=== PATIENT | male | born 1945 | race Caucasian/White ===

== ENCOUNTER 2016-07-24 01:15 | Emergency (ER) | payer MEDICARE ==
[2016-07-24] MEDS ORDERED: Nitrostat 0.4 MG (ED) SL ONE ×2 (01:24→01:38)
[2016-07-24] MEDS ORDERED: Phenergan 25 MG INJ IV ONE (01:24)
[2016-07-24] MEDS ORDERED: BABY ASPIRIN 81 MG CHEW PO ONE (01:24)
[2016-07-24] MEDS ORDERED: Sodium Chloride 0.9% 1000 ML 1,000 ML IV SCH (01:30)
--- NOTE | 2016-07-24 01:31 | ERPHSYRPT ---
- History of Present Illness Time Seen by Provider: 07/24/16 01:20 Historian: patient Exam Limitations: no limitations Patient Subjective Stated Complaint: PT C/O PIAN IN LT CHEST AND RADIATING TO LT SHOULDER AND ARM Triage Nursing Assessment: PT ALERT AND ORIENTED, ANSWERS QEUSTIOSN APPROP. PT AMULATORY WITH STEADY GAIT NOTED. SKIN PINK WAMR AND DRY. PACER TO LT CHEST. RHYTHM PACED ON MONITOR. RESPIRATIONS NONLABORED WITH LUNGS CTA Physician History: ABOUT 1 HOUR AGO AT HOME PT WAS SITTING IN A CHAIR WATCHING TV WHEN HE DEVELOPED SHARP CONSTANT LEFT ANTERIOR CHEST PAIN RADIATING TO THE LEFT SIDE OF THE NECK, LEFT SHOULDER, LEFT ARM AND BACK; PT ALSO C/O LOWER ABDOMINAL PAIN AND NAUSEA. Aspirin Treatment Today: 81 mg x 4, provided by ED Allergies/Adverse Reactions: iodine Allergy (Mild, Verified 07/24/16 02:13) Home Medications: Acetaminophen 325 mg [Tylenol 325 mg] 650 mg PO Q4-6HPRN PRN 08/27/15 [ History] Famotidine 20 mg [Pepcid 20 MG] 20 mg PO BID 08/27/15 [History] Gabapentin [Neurontin] 800 mg PO BID 08/27/15 [History] Levothyroxine Sodium 25 Mcg [Synthroid 25 Mcg] 25 mcg PO DAILY 08/27/15 [ History] Loratadine 10 mg [Claritin 10 mg] 10 mg PO DAILY 08/27/15 [History] Magnesium Oxide 400 mg [Mag-Ox 400] 400 mg PO DAILY 08/27/15 [History] Morphine Sulfate Ir 15 mg [Msir 15 mg] 30 mg PO Q4-6HPRN PRN 08/27/15 [ History] Nitroglycerin 0.4 mg Tablet [Nitrostat 0.4 MG Tablet] 0.4 mg SL UD PRN [History] [place]-3 Fatty Acids/Fish Oil [Fish Oil 1,000 mg Capsule] 1,000 mg PO BID [History] Prasugrel HCl [Effient] 10 mg PO DAILY 08/27/15 [History] Pyridoxine HCl 100 mg [Vitamin B-6 (Pyridoxine) 100 MG] 100 mg PO BID [History] Ropinirole HCl 0.5 mg [Requip 0.5 MG] 0.5 mg PO HS 08/27/15 [History] Rosuvastatin Calcium [Crestor] 20 mg PO HS 08/27/15 [History] Sertraline HCl 50 mg [Zoloft 50 mg Tablet] 25 mg PO BID 08/27/15 [History] Hx Tetanus, Diphtheria Vaccination/Date Given: Yes Hx Influenza Vaccination/Date Given: Yes Hx Pneumococcal Vaccination/Date Given: Yes Immunizations Up to Date: Yes - Review of Systems Respiratory: No Dyspnea Cardiac: Chest Pain Abdominal/Gastrointestinal: Nausea Musculoskeletal: Back Pain, Neck Pain, Joint Pain (LEFT SHOULDER AND ARM PAIN) Neurological: No Headache Endocrine: No Excessive Sweating All Other Systems: Reviewed and Negative - Past Medical History Pertinent Past Medical History: Yes Neurological History: No Pertinent History ENT History: No Pertinent History Cardiac History: Arrhythmia, Congenital Heart Disease, Coronary Artery Disease, High Cholesterol, Hypertension, Myocardial Infarction (PR) Respiratory History: No Pertinent History Endocrine Medical History: Diabetes Type II Musculoskeletal History: Fibromyalgia GI Medical History: GERD History: No Pertinent History Psycho-Social History: Depression Male Reproductive Disorders: No Pertinent History - Past Surgical History Past Surgical History: Yes Neuro Surgical History: No Pertinent History Cardiac: CABG, Pacemaker Respiratory: No Pertinent History Gastrointestinal: Cholecystectomy Genitourinary: No Pertinent History Musculoskeletal: No Pertinent History Male Surgical History: No Pertinent History - Social History Smoking Status: Never smoker Exposure to second hand smoke: Yes Drug Use: none Patient Lives Alone: No - Nursing Vital Signs Pain Intensity: 9 - Physical Exam General Appearance: mild distress, alert Eye Exam: PERRL/EOMI Ears, Nose, Throat Exam: pharynx normal, moist mucous membranes Neck Exam: normal inspection Respiratory Exam: lungs clear Cardiovascular Exam: normal heart sounds Gastrointestinal/Abdomen Exam: soft, normal bowel sounds Back Exam: normal range of motion Extremity Exam: No pedal edema Neurologic Exam: alert, cooperative Skin Exam: warm, dry - Course Nursing assessment & vital signs reviewed: Yes EKG Interpreted by Me: RATE (65), NORMAL AXIS, Non-specific ST Changes, Other ( INTERMITTENT PACEMAKER RHYTHM) - Radiology Exams Chest X-ray Interpretation: Interpreted by me, No Pneumonia Ordered Tests: Active Orders 24 hr Category Date Time Status Equalizer Operator STAT Care 07/24/16 01:24 Active Clean Catch Urine Specimen STAT Care 07/24/16 01:24 Active EKG-ER Only STAT Care 07/24/16 01:24 Active IV Insertion STAT Care 07/24/16 01:24 Active Oxygen-ED Only NASAL CANNULA 2 lpm Care 07/24/16 01:24 Active Pulse Oximetry (ED) STAT Care 07/24/16 01:24 Active CHEST 1 VIEW (PORTABLE) Stat Exams 07/24/16 01:25 Taken AMYLASE Stat Lab 07/24/16 01:30 Completed CBC W DIFF Stat Lab 07/24/16 01:30 Completed CMP Stat Lab 07/24/16 01:30 Completed LIPASE Stat Lab 07/24/16 01:30 Completed MAGNESIUM Stat Lab 07/24/16 01:30 Completed PROTIME WITH INR Stat Lab 07/24/16 01:30 Completed PTT Stat Lab 07/24/16 01:30 Completed TROPONIN Q3H Lab 07/24/16 01:30 Completed TROPONIN Q3H Lab 07/24/16 04:30 Ordered TROPONIN Q3H Lab 07/24/16 07:30 Ordered TROPONIN Q3H Lab 07/24/16 10:30 Ordered TROPONIN Q3H Lab 07/24/16 13:30 Ordered UA Stat Lab 07/24/16 01:25 Ordered Medication Summary Generic Name Dose Route Start Last Admin Trade Name Freq PRN Reason Stop Dose Admin Sodium Chloride 1,000 mls @ 100 mls/hr 07/24/16 01:30 07/24/16 01:40 Sodium Chloride 0.9% 1000 Ml IV 08/23/16 01:29 100 mls/hr .Q10H CARLOS A Administration Discontinued Medications Generic Name Dose Route Start Last Admin Trade Name Freq PRN Reason Stop Dose Admin Aspirin 324 mg 07/24/16 01:24 07/24/16 01:40 Baby Aspirin 81 Mg Chew PO 07/24/16 01:25 324 mg STAT ONE Administration Aspirin Confirm 07/24/16 01:38 Baby Aspirin 81 Mg Chew Administered 07/24/16 01:39 Dose 324 mg .ROUTE .STK-MED ONE Hydromorphone HCl 1 mg 07/24/16 01:36 07/24/16 01:42 Hydromorphone 1 Mg/Ml Ampule IV 07/24/16 01:37 1 mg STAT ONE Administration Hydromorphone HCl Confirm 07/24/16 01:42 Hydromorphone 1 Mg/Ml Ampule Administered 07/24/16 01:43 Dose 1 mg .ROUTE .STK-MED ONE Magnesium Sulfate/Dextrose 100 mls @ 200 mls/hr 07/24/16 02:00 07/24/16 02:05 Magnesium 1 Gm / 100 Ml D5w IV 07/24/16 02:29 200 mls/hr STAT ONE Administration Magnesium Sulfate/Dextrose Confirm 07/24/16 02:04 Magnesium 1 Gm / 100 Ml D5w Administered 07/24/16 02:05 Dose 100 mls @ ud IV .STK-MED ONE Nitroglycerin 0.4 mg 07/24/16 01:24 07/24/16 01:40 Nitrostat 0.4 Mg (Ed) SL 07/24/16 01:25 0.4 mg STAT ONE Administration Nitroglycerin Confirm 07/24/16 01:38 Nitrostat 0.4 Mg (Ed) Administered 07/24/16 01:39 Dose 0.4 mg SL .STK-MED ONE Promethazine HCl 12.5 mg 07/24/16 01:24 07/24/16 01:40 Phenergan 25 Mg Inj IV 07/24/16 01:25 12.5 mg STAT ONE Administration Promethazine HCl Confirm 07/24/16 01:38 Phenergan 25 Mg Inj Administered 07/24/16 01:39 Dose 25 mg .ROUTE .STK-MED ONE Lab/Rad Data: Laboratory Result Diagrams 07/24/16 01:30 07/24/16 01:30 Laboratory Results 07/24/16 07/24/16 07/24/16 Range/Units 01:30 01:30 01:30 WBC (4.0-10.5) K/mm3 RBC (4.1-5.6) M/mm3 Hgb (12.5-18.0) gm/dl Hct (42-50) % MCV (78-100) fl MCH (26-32) pg MCHC (32-36) g/dl RDW (11.5-14.0) % Plt Count (150-450) K/mm3 MPV (6-9.5) fl Gran % (36.0-66.0) % Lymphocytes % (24.0-44.0) % Monocytes % (0.0-12.0) % Eosinophils % (0.00-5.0) % Basophils % (0.0-0.4) % Basophils # (0-0.4) INR 1.04 (0.8-3.0) PTT 33.9 (24.1-36.1) SECONDS Sodium 139 (136-145) mEq/L Potassium 4.0 (3.5-5.1) mEq/L Chloride 100 (98-107) mEq/L Carbon Dioxide 31.2 (21-32) mEq/L Anion Gap 11.4 (5-15) MEQ/L BUN 10 (9-20) mg/dL Creatinine 1.33 H (0.55-1.30) mg/dl Estimated GFR 57 ML/MIN Glucose 100 (70-110) MG/DL Calcium 9.2 (8.5-10.1) mg/dL Magnesium 1.6 L (1.8-2.4) mg/dL Total Bilirubin 0.4 (0.2-1.0) mg/dL AST 36 (15-37) U/L ALT 18 (12-78) U/L Alkaline Phosphatase 79 (46-116) U/L Troponin I < 0.017 (0.000-0.056) ng/ml Serum Total Protein 7.2 (6.4-8.2) gm/dL Albumin 3.5 (3.4-5.0) g/dL Amylase 74 (25-115) U/L Lipase 159 (73-393) U/L 07/24/16 Range/Units 01:30 WBC 3.9 L (4.0-10.5) K/mm3 RBC 4.08 L (4.1-5.6) M/mm3 Hgb 12.5 (12.5-18.0) gm/dl Hct 37.0 L (42-50) % MCV 90.7 (78-100) fl MCH 30.6 (26-32) pg MCHC 33.8 (32-36) g/dl RDW 12.6 (11.5-14.0) % Plt Count 85 L (150-450) K/mm3 MPV 9.2 (6-9.5) fl Gran % 51.6 (36.0-66.0) % Lymphocytes % 26.7 (24.0-44.0) % Monocytes % 13.5 H (0.0-12.0) % Eosinophils % 7.4 H (0.00-5.0) % Basophils % 0.8 (0.0-0.4) % Basophils # 0.03 (0-0.4) INR (0.8-3.0) PTT (24.1-36.1) SECONDS Sodium (136-145) mEq/L Potassium (3.5-5.1) mEq/L Chloride (98-107) mEq/L Carbon Dioxide (21-32) mEq/L Anion Gap (5-15) MEQ/L BUN (9-20) mg/dL Creatinine (0.55-1.30) mg/dl Estimated GFR ML/MIN Glucose (70-110) MG/DL Calcium (8.5-10.1) mg/dL Magnesium (1.8-2.4) mg/dL Total Bilirubin (0.2-1.0) mg/dL AST (15-37) U/L ALT (12-78) U/L Alkaline Phosphatase (46-116) U/L Troponin I (0.000-0.056) ng/ml Serum Total Protein (6.4-8.2) gm/dL Albumin (3.4-5.0) g/dL Amylase (25-115) U/L Lipase (73-393) U/L - Progress Progress Note: 07/24/16 02:36 PT REFUSES ADMISSION. PT IS PAIN FREE AND WANTS TO GO HOME. - Departure Time of Disposition: 02:38 Departure Disposition: Home Clinical Impression: CHEST PAIN, FIBROMYALGIA, DM, HTN, GERD, DEPRESSION Condition: Fair Critical Care Time: No Instructions: Chest Pain Additional Instructions: FOLLOW UP WITH PRIVATE DOCTOR LATER TODAY.
[2016-07-24 01:33] LABS: BASOPHIL % 0.8 % (0.0-0.4); Eosinophil % 7.4 % (0.00-5.0); Granulocytes % 51.6 % (36.0-66.0); Lymphocytes % 26.7 % (24.0-44.0); Mean Cell Volume 90.7 fl (78-100); Mean Corpuscular Hemoglobin 30.6 pg (26-32); Mean Platelet Volume 9.2 fl (6-9.5); Monocytes % 13.5 % (0.0-12.0); Platelet Count 85 K/mm3 (150-450); Red Blood Count 4.08 M/mm3 (4.1-5.6); Red Cell Distribution Width 12.6 % (11.5-14.0); White Blood Count 3.9 K/mm3 (4.0-10.5)
[2016-07-24] MEDS ORDERED: Hydromorphone 1 mg/ml Ampule IV ONE (01:36)
[2016-07-24] MEDS ORDERED: Phenergan 25 MG INJ ONE (01:38)
[2016-07-24] MEDS ORDERED: BABY ASPIRIN 81 MG CHEW ONE (01:38)
[2016-07-24] MEDS ORDERED: Sodium Chloride 0.9% 1000 ML 1,000 ML ONE (01:38)
[2016-07-24] MEDS ORDERED: Hydromorphone 1 mg/ml Ampule ONE (01:42)
[2016-07-24 01:46] LABS: INR 1.04 (0.8-3.0); PROTIME 11.6 SECONDS (8.83-12.87)
[2016-07-24 01:49] LABS: PTT 33.9 SECONDS (24.1-36.1)
[2016-07-24 01:58] LABS: ALBUMIN 3.5 g/dL (3.4-5.0); ANION GAP 11.4 MEQ/L (5-15); BILIRUBIN,TOTAL 0.4 mg/dL (0.2-1.0); Carbon Dioxide 31.2 mEq/L (21-32); MAGNESIUM 1.6 mg/dL (1.8-2.4); Total Protein 7.2 gm/dL (6.4-8.2)
[2016-07-24] MEDS ORDERED: Magnesium 1 Gm / 100 Ml D5W*** 100 ML IV ONE ×2 (02:00→02:04)
[2016-07-24] MEDS ORDERED: TORAdol 30 mg Injection IV ONE (02:41)
[2016-07-24] MEDS ORDERED: TORAdol 30 mg Injection ONE (03:09)
[2016-07-24 03:55] LABS: Collection Type VOID; Ph 5.5 (5-6)
[2016-07-24 03:56] LABS: COMPLETE URINE MICROSCOPIC? NO
[2016-07-24 04:38] VITALS: PULSE 60
[2016-07-24 05:32] VITALS: BP 131/75; O2SAT 96
--- NOTE | 2016-07-24 09:35 | XRAY ---
Indication: Chest pain and short of breath. Comparison: January 28, 2013. Portable chest remains clear. Heart is not enlarged and again demonstrates previous CABG surgery with a left-sided dual-lead pacemaker. Stable right perihilar calcified nodes. Bony thorax intact again with mild osteopenia and degenerative changes. Impression: Stable nonacute chest with chronic features.
== END 2016-07-24 05:31 | disposition home or self-care (01) ==
LOC: ED 01:15
DX: R07.89 Other chest pain (principal); M79.7 Fibromyalgia; E11.9 Type 2 diabetes mellitus without complications; I10 Essential (primary) hypertension; K21.9 Gastro-esophageal reflux disease without esophagitis; F32.9 Major depressive disorder, single episode, unspecified; M54.2 Cervicalgia; M25.512 Pain in left shoulder; M79.602 Pain in left arm; M54.9 Dorsalgia, unspecified; R10.30 Lower abdominal pain, unspecified; R11.0 Nausea
CPT/HCPCS: 36000; 36415; 71010; 80053; 81002; 82150; 83690; 83735; 84484; 85025; 85610; 85730; 93005; 93041; 96360; 96361; 96365; 96374; 96375; 99284; J1170; J1885; J2550; J3475; A9270-GY

== ENCOUNTER 2017-05-26 11:41 | Emergency (ER) | payer MEDICARE ==
[2017-05-26] MEDS ORDERED: ATARAX 25 MG PO ONE (12:13)
[2017-05-26] MEDS ORDERED: ATARAX 25 MG ONE (12:23)
[2017-05-26 12:29] LABS: VBG BASE EXCESS 6.4 (-2.0-2.0); VBG CARBOXYHEMOGLOBIN 3.2 % T HGB (0.0-6.9); VBG HCO3- 32.8 meq/L (22-28); VBG HEMOGLOBIN 14.6; VBG O2 SATURATION 68.6 (95-100); VBG POTASSIUM 4.1 (3.5-5.1); VBG pH 7.4 (7.32-7.42)
[2017-05-26 12:32] LABS: BASOPHIL % 0.4 % (0.0-0.4); Basophil (Absolute #) 0.02 (0-0.4); Eosinophil % 2.5 % (0.00-5.0); Eosinophil (Absolute #) 0.14 (0-0.5); Granulocyte Absolute (ANC) 3.09 (1.4-6.9); Granulocytes % 54.6 % (36.0-66.0); Hematocrit 40.5 % (42-50); Hemoglobin 13.4 gm/dl (12.5-18.0); Lymphocyte (Absolute #) 1.83 (1.0-4.6); Lymphocytes % 32.3 % (24.0-44.0); Mean Cell Volume 89.4 fl (78-100); Mean Corpuscular Hemoglobin 29.6 pg (26-32); Mean Corpuscular Hgb Concent. 33.1 g/dl (32-36); Mean Platelet Volume 9.4 fl (6-9.5); Monocyte (Absolute #) 0.58 (0.0-1.3); Monocytes % 10.2 % (0.0-12.0); Platelet Count 145 K/mm3 (150-450); Red Blood Count 4.53 M/mm3 (4.1-5.6); White Blood Count 5.7 K/mm3 (4.0-10.5)
--- NOTE | 2017-05-26 12:38 | ERPHSYRPT ---
- History of Present Illness Time Seen by Provider: 05/26/17 11:58 Source: patient, family () Patient Subjective Stated Complaint: PT REPORTS HIGH BLOOD PRESSURE BEGINNING NILAY 4 DAYS AGO-STATES THAT HE HURTS ALL OVER BUT THAT IS USUAL FOR HIM-DENIES RECENT ILLNESS-PT HAS CHANGED HOME MEDS TO TRY TO HELP Triage Nursing Assessment: PT PINK WARM ET [id number] TO ANSWER QUESTIONS- RESP EASY ET NONLABORED-MOVING ALL EXTREMITIES WITH EASE- Physician History: CC: high blood pressure Hx: 71 y/o patient of Dr Shore/Yenni with hx of HTN, CAD, SD, fibromyalgia. He has had some headache for 4 days, all day. Not too unusual but worse. He has no injury. Take plavix. No focal weakness, blurred vision, numbness. No fever or chills. He has been checking his blood pressure the past 2 days and it has been very high. He has been anxious and unable to sleep. He feels fidgety. No chest pain or abd pain. No vomiting. He takes morphine for chronic pain syndrome. Timing/Duration: day(s) (4) Severity: moderate Allergies/Adverse Reactions: iodine Allergy (Mild, Verified 05/26/17 11:56) Home Medications: Acetaminophen 325 mg [Tylenol 325 mg] 650 mg PO Q4-6HPRN PRN 08/27/15 [ History] Famotidine 20 mg [Pepcid 20 MG] 20 mg PO BID 08/27/15 [History] Gabapentin [Neurontin] 800 mg PO BID 08/27/15 [History] Levothyroxine Sodium 25 Mcg [Synthroid 25 Mcg] 25 mcg PO DAILY 08/27/15 [ History] Loratadine 10 mg [Claritin 10 mg] 10 mg PO DAILY 08/27/15 [History] Magnesium Oxide 400 mg [Mag-Ox 400] 400 mg PO DAILY 08/27/15 [History] Morphine Sulfate Ir 15 mg [Msir 15 mg] 30 mg PO Q4-6HPRN PRN 08/27/15 [ History] Nitroglycerin 0.4 mg Tablet [Nitrostat 0.4 MG Tablet] 0.4 mg SL UD PRN [History] [place]-3 Fatty Acids/Fish Oil [Fish Oil 1,000 mg Capsule] 1,000 mg PO BID [History] Pyridoxine HCl 100 mg [Vitamin B-6 (Pyridoxine) 100 MG] 100 mg PO BID [History] Ropinirole HCl 0.5 mg [Requip 0.5 MG] 0.5 mg PO HS 08/27/15 [History] Rosuvastatin Calcium [Crestor] 20 mg PO HS 08/27/15 [History] Sertraline HCl 50 mg [Zoloft 50 mg Tablet] 25 mg PO BID 08/27/15 [History] Clopidogrel Bisulfate [Clopidogrel] 75 mg PO DAILY 05/26/17 [History] Metoprolol Tartrate 50 mg [Lopressor 50 MG] 25 mg PO DAILY 05/26/17 [ History] Morphine Sulfate Ir 15 mg [Msir 15 mg] 15 mg PO 05/26/17 [History] Hx Tetanus, Diphtheria Vaccination/Date Given: Yes Hx Influenza Vaccination/Date Given: Yes Hx Pneumococcal Vaccination/Date Given: Yes Immunizations Up to Date: Yes - Review of Systems Constitutional: No Fever, No Chills Eyes: No Vision Changes Ears, Nose, & Throat: No Symptoms Respiratory: No Symptoms Cardiac: No Chest Pain Abdominal/Gastrointestinal: No Abdominal Pain, No Nausea, No Vomiting Musculoskeletal: No Neck Pain, No Fall, No Injury Skin: No Rash Neurological: Headache, No Focal Weakness, No Parasthesia All Other Systems: Reviewed and Negative - Past Medical History Pertinent Past Medical History: Yes Neurological History: No Pertinent History ENT History: No Pertinent History Cardiac History: Arrhythmia, Congenital Heart Disease, Coronary Artery Disease, High Cholesterol, Hypertension, Myocardial Infarction (SD) Respiratory History: No Pertinent History Endocrine Medical History: Diabetes Type II Musculoskeletal History: Fibromyalgia GI Medical History: GERD History: No Pertinent History Psycho-Social History: Depression Male Reproductive Disorders: No Pertinent History - Past Surgical History Past Surgical History: Yes Neuro Surgical History: No Pertinent History Cardiac: CABG, Pacemaker Respiratory: No Pertinent History Gastrointestinal: Cholecystectomy Genitourinary: No Pertinent History Musculoskeletal: No Pertinent History Male Surgical History: No Pertinent History - Social History Smoking Status: Never smoker Exposure to second hand smoke: Yes Drug Use: none Patient Lives Alone: No - Nursing Vital Signs Nursing Vital Signs: Initial Vital Signs Temperature 97.4 F 05/26/17 11:54 Pulse Rate 74 05/26/17 11:54 Respiratory Rate 20 05/26/17 11:54 Blood Pressure 163/107 05/26/17 11:54 O2 Sat by Pulse Oximetry 98 05/26/17 11:54 Pain Scale Pain Intensity 0 - Physical Exam General Appearance: alert, other (mildly anxious appearing man) Eye Exam: PERRL/EOMI Ears, Nose, Throat Exam: normal ENT inspection, moist mucous membranes Neck Exam: normal inspection, non-tender, supple Respiratory Exam: normal breath sounds Cardiovascular Exam: regular rate/rhythm Gastrointestinal/Abdomen Exam: soft, No tenderness, No distention Back Exam: normal inspection, normal range of motion Extremity Exam: normal inspection, normal range of motion Neurologic Exam: alert, oriented x 3, cooperative, poly packer and heat sealer II-XII nml as tested, sensation nml, No motor deficits Skin Exam: warm, dry, No rash SpO2 Interpretation: normal SpO2: 98 Oxygen Delivery: Room Air - Course Nursing assessment & vital signs reviewed: Yes EKG Interpreted by Me: RATE (63 atrial paced rhythm) - CT Exams head CT Interpretation: Negative, Tele-radiologist Report Ordered Tests: Active Orders 24 hr Category Date Time Status Multi Skilled Operator STAT Care 05/26/17 12:12 Active EKG-ER Only STAT Care 05/26/17 12:32 Active IV Insertion STAT Care 05/26/17 12:12 Active HEAD WITHOUT CONTRAST [CT] Stat Exams 05/26/17 12:12 Completed CBC W DIFF Stat Lab 05/26/17 12:26 Completed CMP Stat Lab 05/26/17 12:26 Completed Erythrocyte Sedimentation Rate Stat Lab 05/26/17 12:26 Completed VENOUS BLOOD GAS Urgent Lab 05/26/17 12:12 Completed Medication Summary Discontinued Medications Generic Name Dose Route Start Last Admin Trade Name Freq PRN Reason Stop Dose Admin Hydroxyzine HCl 25 mg 05/26/17 12:13 05/26/17 12:23 Atarax 25 Mg PO 05/26/17 12:14 25 mg STAT ONE Administration Hydroxyzine HCl Confirm 05/26/17 12:23 Atarax 25 Mg Administered 05/26/17 12:24 Dose 25 mg .ROUTE .STK-MED ONE Lab/Rad Data: Laboratory Result Diagrams 05/26/17 12:26 05/26/17 12:26 Laboratory Results 05/26/17 05/26/17 05/26/17 Range/Units 12:26 12:26 12:12 WBC 5.7 (4.0-10.5) K/mm3 RBC 4.53 (4.1-5.6) M/mm3 Hgb 13.4 (12.5-18.0) gm/dl Hct 40.5 L (42-50) % MCV 89.4 (78-100) fl MCH 29.6 (26-32) pg MCHC 33.1 (32-36) g/dl RDW 14.0 (11.5-14.0) % Plt Count 145 L (150-450) K/mm3 MPV 9.4 (6-9.5) fl Gran % 54.6 (36.0-66.0) % Lymphocytes % 32.3 (24.0-44.0) % Monocytes % 10.2 (0.0-12.0) % Eosinophils % 2.5 (0.00-5.0) % Basophils % 0.4 (0.0-0.4) % Basophils # 0.02 (0-0.4) ESR 28 H (0-15) mm/hr VBG pH 7.40 (7.32-7.42) VBG pCO2 at Pat Temp 53 (42-55) mm/Hg VBG pO2 at Pat Temp 32 (25-40) mm/Hg VBG HCO3 32.8 H* (22-28) meq/L VBG O2 Sat ([place]) 68.6 L (95-100) VBG Base Excess 6.4 H (-2.0-2.0) VBG Hemoglobin 14.6 VBG Carboxyhemoglobin 3.2 (0.0-6.9) % T HGB POC Potassium 4.1 (3.5-5.1) Sodium 138 (136-145) mEq/L Potassium 4.4 (3.5-5.1) mEq/L Chloride 102 (98-107) mEq/L Carbon Dioxide 28.0 (21-32) mEq/L Anion Gap 11.9 (5-15) MEQ/L BUN 11 (9-20) mg/dL Creatinine 1.01 (0.55-1.30) mg/dl Estimated GFR > 60 ML/MIN Glucose 99 (70-110) MG/DL Calcium 9.5 (8.5-10.1) mg/dL Total Bilirubin 0.50 (0.2-1.0) mg/dL AST 59 H (15-37) U/L ALT 24 (12-78) U/L Alkaline Phosphatase 94 (46-116) U/L Serum Total Protein 8.1 (6.4-8.2) gm/dL Albumin 3.6 (3.4-5.0) g/dL - Progress Progress Note: 05/26/17 13:24 L arm BP 183/104. R arm BP 199/108. LI and anxiety improved. Await labs. 05/26/17 14:33 BP still up. He is now on metoprolol 50mg tabs half tab BID at home. In the past he took 50mg BID without problem. Will give half now, and increase to 50mg BID in AM. He has morphine at home and is due for next dose now so will take it when he gets home so as to not oversedate. Advised he see Dr Shore this week for recheck. He is most concerned about the anxiety at night and insomina. [facility] Counseled pt/family regarding: lab results, diagnosis, need for follow-up, rad results - Departure Time of Disposition: 14:35 Departure Disposition: Home Clinical Impression: Headache, Hypertension Condition: Stable Critical Care Time: No Referrals: GAUDENCIO SHORE MD [Primary Care Provider] - Instructions: Headache, Adult (DC), High Blood Pressure (DC) Additional Instructions: No driving and stay with family. Return for problems or concerns. See Dr Shore this week for recheck. Takie your normal half lopressor tonite. Increase to whole 50mg lopressor twice a day tomorrow AM.
--- NOTE | 2017-05-26 12:49 | XRAY ---
Indication: Headache. Multiple contiguous axial images obtained through the head without contrast. Comparison: July 03, 2015. Stable age-appropriate global atrophy. No acute intracranial hemorrhage, abnormal extra-axial fluid collection, or mass effect. Fourth ventricle is midline without hydrocephalus. Kumar-white matter differentiation maintained. Bony calvarium intact. Visualized paranasal sinuses and mastoid air cells clear. Impression: Stable negative CT head without contrast exam. CTDI 67.41
[2017-05-26 12:55] VITALS: O2SAT 98
[2017-05-26 12:58] LABS: Erythrocyte Sedimentation Rate 28 mm/hr (0-15)
[2017-05-26 13:44] LABS: ALBUMIN 3.6 g/dL (3.4-5.0); ALKALINE PHOSPHATASE 94 U/L (46-116); ANION GAP 11.9 MEQ/L (5-15); BLOOD UREA NITROGEN 11 mg/dL (9-20); CHLORIDE 102 mEq/L (98-107); Calcium 9.5 mg/dL (8.5-10.1); Creatinine 1 1.01 mg/dl (0.55-1.30); EST GLOMERULAR FILTRATION RATE > 60 ML/MIN; Glucose 99 MG/DL (70-110); SGOT/AST 59 U/L (15-37); SGPT/ALT 24 U/L (12-78); SODIUM 138 mEq/L (136-145); Total Protein 8.1 gm/dL (6.4-8.2)
[2017-05-26 13:52] LABS: Potassium 4.4 mEq/L (3.5-5.1)
[2017-05-26] MEDS ORDERED: Lopressor 25MG Tab PO ONE (14:33)
[2017-05-26] MEDS ORDERED: Lopressor 25MG Tab ONE (14:36)
[2017-05-26 14:48] VITALS: BP 180/104; PULSE 68
== END 2017-05-26 15:03 | disposition home or self-care (01) ==
LOC: ED 11:41
DX: R51 Headache (principal); I10 Essential (primary) hypertension; I25.10 Atherosclerotic heart disease of native coronary artery without angina pectoris; I25.2 Old myocardial infarction; M79.7 Fibromyalgia; G89.4 Chronic pain syndrome; Z79.891 Long term (current) use of opiate analgesic; Z79.899 Other long term (current) drug therapy
CPT/HCPCS: 36000; 36415; 70450; 80053; 82805; 85025; 85652; 93005; 93041; 99284; A9270-GY

== ENCOUNTER 2019-04-13 01:32 | Inpatient (IN) | payer MEDICARE ==
[2019-04-13] MEDS ORDERED: Zofran 4 MG/2 ML VIAL IV ONE ×3 (01:48→13:03)
[2019-04-13] MEDS ORDERED: MORPHINE SULFATE 2 MG INJ IV ONE (01:48)
--- NOTE | 2019-04-13 01:51 | ERPHSYRPT ---
- History of Present Illness Time Seen by Provider: 04/13/19 01:40 Source: patient, EMS Exam Limitations: no limitations Patient Subjective Stated Complaint: pt states, "I've been vomiting and diarrhea since Thursday night, feeling warm but did not take temp. Now, is the only time I've felt cold". Triage Nursing Assessment: pt vomiting and diarrhea since 04/11/19, ashen in color, cool to touch. Pt's abd soft with active bs x4 quad, nontender. Pt c/o low back pain due to fall on 04/06/19. Physician History: nausea vomiting diarrhea and abdominal pain therefore lasted 3 days. Fell a week ago and has lower back. Feels chills and warm. Timing/Duration: day(s) (3) Severity: moderate Modifying Factors: Improves With: eating Associated Symptoms: nausea, vomiting, abdominal pain, chills, malaise Allergies/Adverse Reactions: iodine Allergy (Mild, Verified 05/26/17 11:56) Home Medications: Acetaminophen 325 mg [Tylenol 325 mg] 650 mg PO Q4-6HPRN PRN 08/27/15 [ History] Famotidine 20 mg [Pepcid 20 MG] 20 mg PO BID 08/27/15 [History] Gabapentin [Neurontin] 800 mg PO BID 08/27/15 [History] Levothyroxine Sodium 25 Mcg [Synthroid 25 Mcg] 25 mcg PO DAILY 08/27/15 [ History] Loratadine 10 mg [Claritin 10 mg] 10 mg PO DAILY 08/27/15 [History] Magnesium Oxide 400 mg [Mag-Ox 400] 400 mg PO DAILY 08/27/15 [History] Morphine Sulfate Ir 15 mg [Msir 15 mg] 30 mg PO Q4-6HPRN PRN 08/27/15 [ History] Nitroglycerin 0.4 mg Tablet [Nitrostat 0.4 MG Tablet] 0.4 mg SL UD PRN [History] [place]-3 Fatty Acids/Fish Oil [Fish Oil 1,000 mg Capsule] 1,000 mg PO BID [History] Pyridoxine HCl 100 mg [Vitamin B-6 (Pyridoxine) 100 MG] 100 mg PO BID [History] Ropinirole HCl 0.5 mg [Requip 0.5 MG] 0.5 mg PO HS 08/27/15 [History] Rosuvastatin Calcium [Crestor] 20 mg PO HS 08/27/15 [History] Sertraline HCl 50 mg [Zoloft 50 mg Tablet] 25 mg PO BID 08/27/15 [History] Clopidogrel Bisulfate [Clopidogrel] 75 mg PO DAILY 05/26/17 [History] Metoprolol Tartrate 50 mg [Lopressor 50 MG] 25 mg PO DAILY 05/26/17 [ History] Morphine Sulfate Ir 15 mg [Msir 15 mg] 15 mg PO 05/26/17 [History] Hx Tetanus, Diphtheria Vaccination/Date Given: Yes Hx Influenza Vaccination/Date Given: Yes Hx Pneumococcal Vaccination/Date Given: Yes Immunizations Up to Date: Yes - Review of Systems Constitutional: Chills, No Fever Eyes: No Symptoms Ears, Nose, & Throat: No Symptoms Respiratory: No Cough, No Dyspnea Cardiac: No Chest Pain, No Edema, No Syncope Abdominal/Gastrointestinal: Abdominal Pain, Nausea, Vomiting, Diarrhea Genitourinary Symptoms: No Dysuria Musculoskeletal: Back Pain, No Neck Pain Skin: No Rash Neurological: No Dizziness, No Focal Weakness, No Sensory Changes Psychological: No Symptoms Endocrine: No Symptoms All Other Systems: Reviewed and Negative - Past Medical History Pertinent Past Medical History: Yes Neurological History: No Pertinent History ENT History: No Pertinent History Cardiac History: Angina, High Cholesterol, Hypertension, Myocardial Infarction ( [place]) Respiratory History: No Pertinent History Endocrine Medical History: Hypothyroidism Musculoskeletal History: Arthritis, Fibromyalgia, Osteoarthritis GI Medical History: GERD History: No Pertinent History Psycho-Social History: Depression Male Reproductive Disorders: No Pertinent History - Past Surgical History Past Surgical History: Yes Neuro Surgical History: No Pertinent History Cardiac: CABG, Pacemaker Respiratory: No Pertinent History Gastrointestinal: Cholecystectomy Genitourinary: No Pertinent History Musculoskeletal: No Pertinent History Male Surgical History: No Pertinent History - Social History Smoking Status: Never smoker Exposure to second hand smoke: No Drug Use: none Patient Lives Alone: No - Nursing Vital Signs Nursing Vital Signs: Initial Vital Signs Temperature 98.5 F 04/13/19 01:38 Pulse Rate 60 04/13/19 01:38 Respiratory Rate 16 04/13/19 01:38 Blood Pressure 183/96 04/13/19 01:38 O2 Sat by Pulse Oximetry 99 04/13/19 01:38 Pain Scale Pain Intensity 6 - Physical Exam General Appearance: no apparent distress, alert Eye Exam: PERRL/EOMI, eyes nml inspection Ears, Nose, Throat Exam: normal ENT inspection, TMs normal, pharynx normal, moist mucous membranes Neck Exam: normal inspection, non-tender, supple, full range of motion Respiratory Exam: normal breath sounds, lungs clear, No respiratory distress Cardiovascular Exam: regular rate/rhythm, normal heart sounds, normal peripheral pulses Gastrointestinal/Abdomen Exam: soft, normal bowel sounds, tenderness, No distention, No mass, No guarding Back Exam: normal range of motion, other (kkyphoscoliosis), No CVA tenderness, No vertebral tenderness Extremity Exam: normal inspection, normal range of motion, pelvis stable Neurologic Exam: alert, oriented x 3, cooperative, normal mood/affect, nml cerebellar function, nml station & gait, sensation nml, No motor deficits Skin Exam: normal color, warm, dry, No rash Lymphatic Exam: No adenopathy SpO2: 99 Ordered Tests: Active Orders 24 hr Category Date Time Status IV Insertion STAT Care 04/13/19 01:48 Active ABDOMEN AND PELVIS W CONTRAST [CT] Stat Exams 04/13/19 01:49 Taken CBC W DIFF Stat Lab 04/13/19 02:02 Completed CMP Stat Lab 04/13/19 02:02 Completed LIPASE Stat Lab 04/13/19 02:02 Completed Lactic Acid Stat Lab 04/13/19 01:48 Completed MAGNESIUM Stat Lab 04/13/19 02:02 Completed Medication Summary Generic Name Dose Route Start Last Admin Trade Name Freq PRN Reason Stop Dose Admin Sodium Chloride 1,000 mls @ 200 mls/hr 04/13/19 02:00 04/13/19 04:59 Sodium Chloride 0.9% 1000 Ml IV 05/13/19 01:59 200 mls/hr .Q5H CARLOS A Administration Levofloxacin/Dextrose 500 mg in 100 mls @ 100 mls/hr 04/13/19 06:30 Levofloxacin 500mg/100ml D5w IV 04/13/19 07:29 ONCALLTOOR CARLOS A Metronidazole 500 mg in 100 mls @ 200 mls/hr 04/13/19 06:22 Flagyl 500 Mg Ivpb IV 04/13/19 06:51 STAT STA Discontinued Medications Generic Name Dose Route Start Last Admin Trade Name Zev PRN Reason Stop Dose Admin Al Hydrox/Mg Hydrox/Simethicone Confirm 04/13/19 04:50 Maalox Es 30 Ml Unit Dose Administered 04/13/19 04:51 Dose 30 ml .ROUTE .STK-MED ONE Hydromorphone HCl 1 mg 04/13/19 06:21 Hydromorphone 1 Mg/Ml Ampule IV 04/13/19 06:22 STAT ONE Lidocaine HCl Confirm 04/13/19 04:49 Xylocaine Hcl Viscous * Administered 04/13/19 04:50 Dose 15 ml .ROUTE .STK-MED ONE Magnesium Hydroxide 45 ml 04/13/19 04:47 04/13/19 04:50 Gi Cocktail 45 Ml (Maalox/Lidocaine) PO 04/13/19 04:48 45 ml STAT ONE Administration Morphine Sulfate 2 mg 04/13/19 01:48 04/13/19 01:54 Morphine Sulfate 2 Mg Inj IV 04/13/19 01:49 2 mg STAT ONE Administration Morphine Sulfate Confirm 04/13/19 01:53 Morphine Sulfate 2 Mg Inj Administered 04/13/19 01:54 Dose 2 mg .ROUTE .STK-MED ONE Morphine Sulfate 4 mg 04/13/19 03:40 04/13/19 03:44 Morphine Sulfate 4 Mg Inj IV 04/13/19 03:41 4 mg STAT ONE Administration Morphine Sulfate Confirm 04/13/19 03:41 Morphine Sulfate 4 Mg Inj Administered 04/13/19 03:42 Dose 4 mg .ROUTE .STK-MED ONE Ondansetron HCl 4 mg 04/13/19 01:48 04/13/19 01:54 Zofran 4 Mg/2 Ml Vial IV 04/13/19 01:49 4 mg STAT ONE Administration Ondansetron HCl Confirm 04/13/19 01:52 Zofran 4 Mg/2 Ml Vial Administered 04/13/19 01:53 Dose 4 mg .ROUTE .STK-MED ONE Lab/Rad Data: Laboratory Result Diagrams 04/13/19 02:02 04/13/19 02:02 Laboratory Results 04/13/19 04/13/19 04/13/19 Range/Units 02:02 02:02 02:02 WBC (4.0-10.5) K/mm3 RBC (4.1-5.6) M/mm3 Hgb (12.5-18.0) gm/dl Hct (42-50) % MCV (78-100) fl MCH (26-32) pg MCHC (32-36) g/dl RDW (11.5-14.0) % Plt Count (150-450) K/mm3 MPV (6-9.5) fl Gran % (36.0-66.0) % Eos # (Auto) (0-0.5) Absolute Lymphs (auto) (1.0-4.6) Absolute Monos (auto) (0.0-1.3) Lymphocytes % (24.0-44.0) % Monocytes % (0.0-12.0) % Eosinophils % (0.00-5.0) % Basophils % (0.0-0.4) % Absolute Granulocytes (1.4-6.9) Basophils # (0-0.4) Sodium 138 (137-145) mmol/L Potassium 3.6 (3.5-5.1) mmol/L Chloride 103 (98-107) mmol/L Carbon Dioxide 25 (22-30) mmol/L Anion Gap 13.1 (5-15) MEQ/L BUN 14 (9-20) mg/dL Creatinine 1.09 (0.66-1.25) mg/dL Estimated GFR > 60.0 ML/MIN Glucose 105 (74-106) mg/dL Lactic Acid (0.4-2.0) Calcium 9.6 (8.4-10.2) mg/dL Magnesium 1.5 L (1.6-2.3) mg/dL Total Bilirubin 0.60 (0.2-1.3) mg/dL AST 59 (17-59) U/L ALT 41 (0-50) U/L Alkaline Phosphatase 108 (38-126) U/L Serum Total Protein 7.5 (6.3-8.2) g/dL Albumin 4.0 (3.5-5.0) g/dL Lipase 156 (23-300) U/L Influenza Type A Ag NEGATIVE (NEGATIVE) Influenza Type B Ag NEGATIVE (NEGATIVE) RSV (PCR) NEGATIVE (Negative) 04/13/19 04/13/19 Range/Units 02:02 01:48 WBC 4.2 (4.0-10.5) K/mm3 RBC 4.51 (4.1-5.6) M/mm3 Hgb 13.6 (12.5-18.0) gm/dl Hct 40.0 L (42-50) % MCV 88.7 (78-100) fl MCH 30.2 (26-32) pg MCHC 34.0 (32-36) g/dl RDW 13.4 (11.5-14.0) % Plt Count 99 L (150-450) K/mm3 MPV 9.5 (6-9.5) fl Gran % 66.7 H (36.0-66.0) % Eos # (Auto) 0.09 (0-0.5) Absolute Lymphs (auto) 0.80 L (1.0-4.6) Absolute Monos (auto) 0.50 (0.0-1.3) Lymphocytes % 19.1 L (24.0-44.0) % Monocytes % 11.9 (0.0-12.0) % Eosinophils % 2.1 (0.00-5.0) % Basophils % 0.2 (0.0-0.4) % Absolute Granulocytes 2.79 (1.4-6.9) Basophils # 0.01 (0-0.4) Sodium (137-145) mmol/L Potassium (3.5-5.1) mmol/L Chloride (98-107) mmol/L Carbon Dioxide (22-30) mmol/L Anion Gap (5-15) MEQ/L BUN (9-20) mg/dL Creatinine (0.66-1.25) mg/dL Estimated GFR ML/MIN Glucose (74-106) mg/dL Lactic Acid 1.4 (0.4-2.0) Calcium (8.4-10.2) mg/dL Magnesium (1.6-2.3) mg/dL Total Bilirubin (0.2-1.3) mg/dL AST (17-59) U/L ALT (0-50) U/L Alkaline Phosphatase (38-126) U/L Serum Total Protein (6.3-8.2) g/dL Albumin (3.5-5.0) g/dL Lipase (23-300) U/L Influenza Type A Ag (NEGATIVE) Influenza Type B Ag (NEGATIVE) RSV (PCR) (Negative) - Progress Progress: improved Discussed with : Jessie Will see patient in: hospital (observation) Counseled pt/family regarding: diagnosis, rad results - Departure Clinical Impression: Nausea vomiting and diarrhea L1 vertebral fracture Qualifiers: Encounter type: initial encounter Fracture type: closed Fracture morphology: other fracture Qualified Code(s): S32.018A - Other fracture of first lumbar vertebra, initial encounter for closed fracture Condition: Stable Critical Care Time: No Referrals: GAUDENCIO SHORE MD [Primary Care Provider] - Instructions: Diarrhea and Traveler's Diarrhea -- Adult
[2019-04-13] MEDS ORDERED: Zofran 4 MG/2 ML VIAL ONE ×2 (01:52→08:45)
[2019-04-13] MEDS ORDERED: MORPHINE SULFATE 2 MG INJ ONE (01:53)
[2019-04-13] MEDS: Sodium Chloride 0.9% 1000 ML 1,000 ML IV SCH ×3 (01:59→15:39)
[2019-04-13 02:06] LABS: Absolute Neutrophil Ct (ANC) 2.79 (1.4-6.9); BASOPHIL % 0.2 % (0.0-0.4); Basophil (Absolute #) 0.01 (0-0.4); Eosinophil % 2.1 % (0.00-5.0); Eosinophil (Absolute #) 0.09 (0-0.5); Hemoglobin 13.6 gm/dl (12.5-18.0); Lymphocytes % 19.1 % (24.0-44.0); Mean Cell Volume 88.7 fl (78-100); Mean Corpuscular Hemoglobin 30.2 pg (26-32); Mean Platelet Volume 9.5 fl (6-9.5); Monocytes % 11.9 % (0.0-12.0); Neutrophil % 66.7 % (36.0-66.0); Platelet Count 99 K/mm3 (150-450); Red Blood Count 4.51 M/mm3 (4.1-5.6); Red Cell Distribution Width 13.4 % (11.5-14.0); White Blood Count 4.2 K/mm3 (4.0-10.5)
[2019-04-13 02:17] LABS: ALKALINE PHOSPHATASE 108 U/L (38-126); ANION GAP 13.1 MEQ/L (5-15); BLOOD UREA NITROGEN 14 mg/dL (9-20); CHLORIDE 103 mmol/L (98-107); Calcium 9.6 mg/dL (8.4-10.2); Carbon Dioxide 25 mmol/L (22-30); Creatinine 1 1.09 mg/dL (0.66-1.25); Glucose 105 mg/dL (74-106); LIPASE 156 U/L (23-300); Potassium 3.6 mmol/L (3.5-5.1); SGOT/AST 59 U/L (17-59); SGPT/ALT 41 U/L (0-50); SODIUM 138 mmol/L (137-145); Total Protein 7.5 g/dL (6.3-8.2)
[2019-04-13 02:41] LABS: INFLUENZA A NEGATIVE (NEGATIVE); INFLUENZA B NEGATIVE (NEGATIVE); RESPIRATORY SYNCTIAL VIRUS NEGATIVE (Negative)
[2019-04-13] MEDS ORDERED: MORPHINE SULFATE 4 MG INJ IV ONE ×2 (03:40→10:39)
[2019-04-13] MEDS ORDERED: MORPHINE SULFATE 4 MG INJ ONE ×2 (03:41→10:43)
[2019-04-13] MEDS ORDERED: GI COCKTAIL 45 ML (Maalox/Lidocaine) PO ONE (04:47)
[2019-04-13] MEDS ORDERED: XYLOCAINE HCl Viscous ONE (04:49)
[2019-04-13] MEDS ORDERED: MAALOX ES 30 ML UNIT DOSE ONE (04:50)
[2019-04-13] MEDS ORDERED: Sodium Chloride 0.9% 1000 ML 1,000 ML ONE (04:58)
[2019-04-13] MEDS ORDERED: Hydromorphone 1 mg/ml Ampule IV ONE (06:21)
[2019-04-13] MEDS ORDERED: FLAGYL 500 MG IVPB 500 MG/100 ML BAG IV STA (06:22)
[2019-04-13] MEDS ORDERED: FLAGYL 500 MG IVPB 500 MG/100 ML BAG IV ONE (06:26)
[2019-04-13] MEDS ORDERED: Hydromorphone 1 mg/ml Ampule ONE (06:26)
[2019-04-13] MEDS ORDERED: Levofloxacin 500MG/100ML D5W 500 MG/100 ML BAG IV SCH (06:30)
--- NOTE | 2019-04-13 10:11 | XRAY ---
Indication: Abdomen pain. Multiple contiguous axial images obtained through the abdomen and pelvis using 80 cc of Isovue-370 contrast. Comparison: September 07, 2007. Lung bases again hyperinflated. Minimal bilateral dependent atelectasis. No infiltrate or effusion. Heart is not enlarged again demonstrating partially visualized CABG surgery and cardiac pacer leads. Noncontrasted stomach and bowel loops appear nonobstructed. Ascending colon and portion of the transverse colon now demonstrates mild circumferential wall thickening with fatty infiltration either incomplete distention versus inflammatory bowel disease. Both kidneys enhance and excrete with interval enlarging 2.6 cm right mid renal and 3 cm left lower renal exophytic cysts with new 7 mm left mid renal cyst. Also interval enlarging left urinary bladder diverticulum. Spleen remains enlarged measuring 15.5 cm. Interval cholecystectomy. No free fluid/air. Remaining liver, pancreas, spleen, adrenal glands, kidneys, ureters, and bladder appear unremarkable. Again scattered aortoiliac calcifications. No AAA or pathological retroperitoneal lymphadenopathy. Osseous structures demonstrates mild osteopenia and minimal/mild degenerative changes throughout the spine. New L1 superior endplate fracture with less than 25% height loss of uncertain chronicity. Impression: 1. Ascending and transverse colon bowel wall thickening and fatty infiltration either incomplete distention versus inflammatory bowel disease. 2. Enlarging bilateral renal cysts and urinary bladder diverticulum. 3. Again incidental splenomegaly. 4. L1 endplate fracture of uncertain chronicity. Comment: Preliminary interpretation was made by [facility]. No critical discrepancy.
[2019-04-13] MEDS ORDERED: BENTYL 20 MG ONE (10:43)
[2019-04-13] MEDS: BENTYL 20 MG PO SCH ×4 (10:45→21:53)
[2019-04-13] MEDS ORDERED: MORPHINE SULFATE 4 MG INJ IV SCH (13:06)
[2019-04-13 13:31] LABS: Hematocrit 39.5 % (42-50); Hemoglobin 13.6 gm/dl (12.5-18.0); Mean Cell Volume 88.8 fl (78-100); Mean Corpuscular Hemoglobin 30.6 pg (26-32); Mean Corpuscular Hgb Concent. 34.4 g/dl (32-36); Mean Platelet Volume 9.5 fl (6-9.5); Platelet Count 95 K/mm3 (150-450); Red Blood Count 4.45 M/mm3 (4.1-5.6); Red Cell Distribution Width 13.6 % (11.5-14.0); White Blood Count 3.6 K/mm3 (4.0-10.5)
[2019-04-13 13:32] LABS: ANION GAP 13.3 MEQ/L (5-15); BLOOD UREA NITROGEN 14 mg/dL (9-20); CHLORIDE 105 mmol/L (98-107); Calcium 9.8 mg/dL (8.4-10.2); Carbon Dioxide 25 mmol/L (22-30); Creatinine 1 1.07 mg/dL (0.66-1.25); Glucose 105 mg/dL (74-106); Potassium 3.6 mmol/L (3.5-5.1); SODIUM 140 mmol/L (137-145)
[2019-04-13] MEDS ORDERED: TYLENOL 325 MG PO PRN (14:50)
[2019-04-13] MEDS ORDERED: APRESOLINE 20 MG/ML INJ IV PRN (14:59)
[2019-04-13] MEDS ORDERED: Magnesium Sulfate 1 GM/2 ML VIAL IV ONE (15:00)
[2019-04-13] MEDS: DILAUDID 2 MG INJECTION IV PRN ×3 (15:37→23:55)
[2019-04-13] MEDS: Levofloxacin 500MG/100ML D5W 500 MG/100 ML BAG IV SCH (15:39)
[2019-04-13] MEDS: Magnesium 1 Gm / 100 Ml D5W*** 100 ML IV SCH ×2 (15:39→16:57)
[2019-04-13] MEDS: PROTONIX 40 MG IV IV SCH (15:39)
[2019-04-13] MEDS: Nitrostat 0.4 MG Tablet SL PRN ×3 (15:40→15:50)
[2019-04-13] MEDS ORDERED: Nitrostat 0.4 MG Tablet SL ONE (15:42)
[2019-04-13] MEDS: CLARITIN 10 MG PO SCH (15:44)
[2019-04-13] MEDS: SYNTHROID 25 MCG PO SCH (15:44)
[2019-04-13] MEDS: Zestril 20 MG PO SCH (15:44)
[2019-04-13] MEDS: Lopressor 25MG Tab PO SCH (15:44)
[2019-04-13] MEDS: ENOXAPARIN SODIUM SQ SCH (15:45)
[2019-04-13] MEDS: MAG-OX 400 PO SCH (16:00)
[2019-04-13] MEDS: PLAVIX 75 MG Tablet PO SCH (16:04)
[2019-04-13] MEDS: Phenergan 25 MG INJ IV PRN ×2 (16:24→21:53)
[2019-04-13 16:48] LABS: Basophil 1 % (0.0-1.0); Eosinophil 2 % (0.00-3.0); Lymphocytes 14 % (24-44); Monocyte 10 % (0.0-12.0); Neutrophils 73 % (36.-66.); Platelet Estimate DECREASED (NORMAL); Total Cells Counted 100
[2019-04-13] MEDS: Pepcid 20 MG PO SCH (21:52)
[2019-04-13] MEDS: Requip 0.5 MG PO SCH (21:52)
[2019-04-13] MEDS: FISH OIL 1,000 MG CAPSULE PO SCH (21:52)
[2019-04-13] MEDS: ZOCOR 20MG PO SCH (21:52)
[2019-04-13] MEDS: Neurontin 400 MG PO SCH (21:52)
[2019-04-13] MEDS: ZOLOFT 50 MG TABLET PO SCH (21:53)
[2019-04-13] MEDS: Vitamin B-6 (Pyridoxine) 100 MG PO SCH (21:53)
[2019-04-13] MEDS ORDERED: NON-FORMULARY ITEM (Rosuvastatin Calcium [Crestor] 20 MG) PO SCH (22:00)
[2019-04-14] MEDS: Sodium Chloride 0.9% 1000 ML 1,000 ML IV SCH ×3 (02:36→23:19)
[2019-04-14] MEDS: DILAUDID 2 MG INJECTION IV PRN ×5 (02:40→22:25)
[2019-04-14] MEDS ORDERED: Hydromorphone 1 mg/ml Ampule ONE (04:04)
[2019-04-14 05:19] LABS: BASOPHIL % 0.2 % (0.0-0.4); Basophil (Absolute #) 0.01 (0-0.4); Eosinophil (Absolute #) 0.05 (0-0.5); Hematocrit 39.7 % (42-50); Hemoglobin 13.4 gm/dl (12.5-18.0); Lymphocyte (Absolute #) 1.27 (1.0-4.6); Lymphocytes % 24.1 % (24.0-44.0); Mean Cell Volume 89.6 fl (78-100); Mean Corpuscular Hemoglobin 30.2 pg (26-32); Mean Corpuscular Hgb Concent. 33.8 g/dl (32-36); Mean Platelet Volume 9.3 fl (6-9.5); Monocyte (Absolute #) 0.63 (0.0-1.3); Neutrophil % 62.7 % (36.0-66.0); Platelet Count 108 K/mm3 (150-450); Red Blood Count 4.43 M/mm3 (4.1-5.6); Red Cell Distribution Width 13.7 % (11.5-14.0); White Blood Count 5.3 K/mm3 (4.0-10.5)
[2019-04-14 05:37] LABS: BLOOD UREA NITROGEN 13 mg/dL (9-20); CHLORIDE 107 mmol/L (98-107); Calcium 9.4 mg/dL (8.4-10.2); Carbon Dioxide 24 mmol/L (22-30); Creatinine 1 1.03 mg/dL (0.66-1.25); Glucose 95 mg/dL (74-106); Potassium 3.7 mmol/L (3.5-5.1); SODIUM 139 mmol/L (137-145)
[2019-04-14] MEDS: Neurontin 400 MG PO SCH ×2 (09:00→22:26)
[2019-04-14] MEDS: SYNTHROID 25 MCG PO SCH (09:00)
[2019-04-14] MEDS: CLARITIN 10 MG PO SCH (09:00)
[2019-04-14] MEDS: BENTYL 20 MG PO SCH ×4 (09:00→22:27)
[2019-04-14] MEDS: PLAVIX 75 MG Tablet PO SCH (09:00)
[2019-04-14] MEDS: MAG-OX 400 PO SCH (09:00)
[2019-04-14] MEDS: Lopressor 25MG Tab PO SCH (09:00)
[2019-04-14] MEDS: FISH OIL 1,000 MG CAPSULE PO SCH ×2 (09:00→22:26)
[2019-04-14] MEDS: Pepcid 20 MG PO SCH ×2 (09:01→22:28)
[2019-04-14] MEDS: Zestril 20 MG PO SCH (09:02)
[2019-04-14] MEDS: ENOXAPARIN SODIUM SQ SCH (09:02)
[2019-04-14] MEDS: Vitamin B-6 (Pyridoxine) 100 MG PO SCH ×2 (09:02→22:28)
[2019-04-14] MEDS: ZOLOFT 50 MG TABLET PO SCH ×2 (09:06→22:26)
--- NOTE | 2019-04-14 09:06 | HP ---
HISTORY OF PRESENT ILLNESS: This is a 73 year-old patient of Dr. Hendrickson who presented to the emergency department on 04/12/2019. He reports that he started having diarrhea on Thursday that got better and then got worse again. His was sick too and she is better but he is not. He had diarrhea this morning and still having vomiting. He reports his stools looked black but he thinks this is because he took some [id number] medication. He denies any blood in his stool. His pain is in his lower abdomen. He reports the pain medicine that he was given in the emergency room is not completely helping with his pain and he continues to have pain. He fell on 04/06/2019 and hurt his back. He was found to have an L1 compression fracture on CT scan of his abdomen and pelvis in the emergency room. In the emergency room he was also on the CT scan found to have ascending and transverse colon bowel wall thickening. REVIEW OF SYSTEMS: The patient is uncomfortable and further review is obtainable at this time. MEDICATIONS: Please see the home medication reconciliation form which I have reviewed. ALLERGIES: IODINE. PAST MEDICAL HISTORY: He reports hypertension, coronary artery disease with three open heart surgeries, fibromyalgia. PAST SURGICAL HISTORY: Cholecystectomy. Sam in his left leg after fracture. SOCIAL HISTORY: He is . FAMILY HISTORY: Noncontributory, PHYSICAL EXAMINATION: VITAL SIGNS: Temperature current 98.4F, heart rate 63, respiratory rate 18, blood pressure 196/98. Oxygen saturation 93 to 94% on room air. GENERAL: The patient is lying in bed in mild distress. CVS: His heart has a regular rate and rhythm. No murmurs, gallops or rubs are appreciated. CHEST: Clear to auscultation bilaterally. ABDOMEN: Tender in the right lower quadrant. No guarding. No rigidity. Hyperactive bowel sounds, slightly distended. EXTREMITIES: No clubbing, cyanosis or edema. SKIN: Warm, dry and intact. ASSESSMENT AND PLAN: 1) Abdominal pain. CT scan was concerning for inflammatory bowel disease with colon bowel wall thickening and fatty infiltration. Will continue with IV pain control, IV medication for nausea. I am monitoring his abdominal pain. Will check a GI panel and a stool for occult blood. 2) Hypertension. He has not received his oral antihypertensive yet this morning. I have asked the [employer] to have them give those to him STAT. I have also ordered hydralazine IV as needed for hypertension. 3) Coronary artery disease. Continue his home medications. 4) Fibromyalgia. His home medicine list was morphine but the frequency of how often this is given is not stated. Will check an INSPECT report. 5) Deep venous thrombosis prophylaxis: Will start Lovenox. 6) L1 compression fracture. Will continue with pain control and asked PT to see him tomorrow.
[2019-04-14] MEDS: PROTONIX 40 MG IV IV SCH (09:08)
[2019-04-14] MEDS: Levofloxacin 500MG/100ML D5W 500 MG/100 ML BAG IV SCH ×2 (09:08→13:41)
--- NOTE | 2019-04-14 12:01 | PCM.HP ---
History of Present Illness - Chief Complaint Chief Complaint: c/o back pain, abdominal pain, nausea for 1-2 days History of Present Illness: Mr.NORRIS TYLER is a 73 year old male c/o nausea vomiting diarrhea and abdominal pain therefore lasted 3 days. Fell a week ago and has lower back. Feels chills and warm. Timing/Duration: day(s) (3) Severity: moderate Modifying Factors: Improves With: eating Associated Symptoms: nausea, vomiting, abdominal pain, chills, malaise - Review of Systems Constitutional: No Fever, No Chills Eyes: No Symptoms Ears, Nose, & Throat: No Symptoms Respiratory: No Cough, No Short Of Breath Cardiac: No Chest Pain, No Edema, No Syncope Abdominal/Gastrointestinal: Abdominal Pain, Nausea, Vomiting, No Diarrhea Genitourinary Symptoms: No Dysuria Musculoskeletal: Back Pain, No Neck Pain Skin: No Rash Neurological: No Dizziness, No Focal Weakness, No Sensory Changes Psychological: No Symptoms Endocrine: No Symptoms Hematologic/Lymphatic: No Symptoms Immunological/Allergic: No Symptoms Medications & Allergies Home Medications: Home Medication List Acetaminophen 325 mg [Tylenol 325 mg] 650 mg PO Q4-6HPRN PRN 08/27/15 [ History Confirmed 04/13/19] Famotidine 20 mg [Pepcid 20 MG] 20 mg PO BID 08/27/15 [History Confirmed 04/13/19] Gabapentin [Neurontin] 800 mg PO BID 08/27/15 [History Confirmed 04/13/19] Levothyroxine Sodium 25 Mcg [Synthroid 25 Mcg] 25 mcg PO DAILY 08/27/15 [ History Confirmed 04/13/19] Loratadine 10 mg [Claritin 10 mg] 10 mg PO DAILY 08/27/15 [History Confirmed 04/13/19] Magnesium Oxide 400 mg [Mag-Ox 400] 400 mg PO DAILY 08/27/15 [History Confirmed 04/13/19] Nitroglycerin 0.4 mg Tablet [Nitrostat 0.4 MG Tablet] 0.4 mg SL UD PRN [History Confirmed 04/13/19] Ralston-3 Fatty Acids/Fish Oil [Fish Oil 1,000 mg Capsule] 1,000 mg PO BID [History Confirmed 04/13/19] Pyridoxine HCl 100 mg [Vitamin B-6 (Pyridoxine) 100 MG] 100 mg PO BID [History Confirmed 04/13/19] Ropinirole HCl 0.5 mg [Requip 0.5 MG] 0.5 mg PO HS 08/27/15 [History Confirmed 04/13/19] Rosuvastatin Calcium [Crestor] 20 mg PO HS 08/27/15 [History Confirmed 04/13/19] Sertraline HCl 50 mg [Zoloft 50 mg Tablet] 25 mg PO BID 08/27/15 [History Confirmed 04/13/19] Clopidogrel Bisulfate [Clopidogrel] 75 mg PO DAILY 05/26/17 [History Confirmed 04/13/19] Metoprolol Tartrate 50 mg [Lopressor 50 MG] 25 mg PO DAILY 05/26/17 [ History Confirmed 04/13/19] Morphine Sulfate Ir 15 mg [Msir 15 mg] 15 mg PO Q4-6HPRN PRN 05/26/17 [ History Confirmed 04/13/19] Lisinopril 20 mg pe PO DAILY 04/13/19 [History Confirmed 04/13/19] Allergies/Adverse Reactions: Allergies Allergy/AdvReac Type Severity Reaction Status Date / Time iodine Allergy Mild Verified 05/26/17 11:56 - Past Medical History Past Medical History: Yes Neurological History: No Pertinent History ENT History: No Pertinent History Cardiac History: Angina, High Cholesterol, Hypertension, Myocardial Infarction ( [place]) Respiratory History: No Pertinent History Endocrine Medical History: Hypothyroidism Musculoskelatal History: Arthritis, Fibromyalgia, Osteoarthritis GI Medical History: GERD History: No Pertinent History Pyscho-Social History: Depression Male Reproductive Disorders: No Pertinent History Comment: diet controled diabetic - Past Surgical History Past Surgical History: Yes Neuro Surgical History: No Pertinent History Cardiac History: CABG, Pacemaker Respiratory Surgery: No Pertinent History GI Surgical History: Cholecystectomy Genitourinary Surgical Hx: No Pertinent History Musculskeletal Surgical Hx: No Pertinent History Male Surgical History: No Pertinent History - Social History Smoking Status: Never smoker Exposure to second hand smoke: No Alcohol: None Drug Use: none - Physical Exam Vital Signs: Vital Signs - 24 hr Temp Pulse Resp BP BP Pulse Ox 04/14/19 07:42 98.3 F 60 18 136/65 95 04/14/19 04:00 97.8 F 60 16 146/71 96 04/14/19 00:00 98.0 F 79 20 193/93 96 04/13/19 20:00 98.9 F 72 20 162/75 98 04/13/19 15:50 60 182/78 04/13/19 15:45 60 180/72 04/13/19 15:40 60 192/98 04/13/19 15:22 97.6 F 61 20 192/87 98 04/13/19 13:21 98.4 F 63 18 196/98 99 04/13/19 13:00 98.4 F 63 18 196/98 99 04/13/19 12:06 61 18 175/98 96 General Appearance: no apparent distress, alert Neurologic Exam: alert, oriented x 3, cooperative, normal mood/affect, nml cerebellar function, nml station & gait, sensation nml, No motor deficits Eye Exam: PERRL/EOMI, eyes nml inspection Ears, Nose, Throat Exam: normal ENT inspection, TMs normal, pharynx normal, moist mucous membranes Neck Exam: normal inspection, non-tender, supple, full range of motion Respiratory Exam: normal breath sounds, lungs clear, No respiratory distress Cardiovascular Exam: regular rate/rhythm, normal heart sounds, normal peripheral pulses Gastrointestinal/Abdomen Exam: soft, normal bowel sounds, No tenderness, No mass Back Exam: normal inspection, normal range of motion, No CVA tenderness, No vertebral tenderness Extremity Exam: normal inspection, normal range of motion, pelvis stable Skin Exam: normal color, warm, dry, No rash Lymphatic Exam: No adenopathy Results - Labs Lab/Micro Results: Lab Results-Last 24 Hours 04/13/19 04/13/19 04/13/19 Range/Units 11:35 13:03 13:03 WBC 3.6 L (4.0-10.5) K/mm3 RBC 4.45 (4.1-5.6) M/mm3 Hgb 13.6 (12.5-18.0) gm/dl Hct 39.5 L (42-50) % MCV 88.8 (78-100) fl MCH 30.6 (26-32) pg MCHC 34.4 (32-36) g/dl RDW 13.6 (11.5-14.0) % Plt Count 95 L (150-450) K/mm3 MPV 9.5 (6-9.5) fl Gran % (36.0-66.0) % Eos # (Auto) (0-0.5) Absolute Lymphs (auto) (1.0-4.6) Absolute Monos (auto) (0.0-1.3) Lymphocytes % (24.0-44.0) % Monocytes % (0.0-12.0) % Eosinophils % (0.00-5.0) % Basophils % (0.0-0.4) % Absolute Granulocytes (1.4-6.9) Segmented Neutrophils 73 H (36.-66.) % Lymphocytes (Manual) 14 L (24-44) % Monocytes (Manual) 10 (0.0-12.0) % Eosinophils (Manual) 2 (0.00-3.0) % Basophils (Manual) 1 (0.0-1.0) % Basophils # (0-0.4) Platelet Estimate DECREASED (NORMAL) Sodium 140 (137-145) mmol/L Potassium 3.6 (3.5-5.1) mmol/L Chloride 105 (98-107) mmol/L Carbon Dioxide 25 (22-30) mmol/L Anion Gap 13.3 (5-15) MEQ/L BUN 14 (9-20) mg/dL Creatinine 1.07 (0.66-1.25) mg/dL Estimated GFR > 60.0 ML/MIN Glucose 105 (74-106) mg/dL Calcium 9.8 (8.4-10.2) mg/dL Troponin I 0.015 (0.000-0.034) ng/mL Stool Occult Bld Scrn (NEGATIVE) 04/13/19 04/13/19 04/13/19 Range/Units 15:30 16:00 19:25 WBC (4.0-10.5) K/mm3 RBC (4.1-5.6) M/mm3 Hgb (12.5-18.0) gm/dl Hct (42-50) % MCV (78-100) fl MCH (26-32) pg MCHC (32-36) g/dl RDW (11.5-14.0) % Plt Count (150-450) K/mm3 MPV (6-9.5) fl Gran % (36.0-66.0) % Eos # (Auto) (0-0.5) Absolute Lymphs (auto) (1.0-4.6) Absolute Monos (auto) (0.0-1.3) Lymphocytes % (24.0-44.0) % Monocytes % (0.0-12.0) % Eosinophils % (0.00-5.0) % Basophils % (0.0-0.4) % Absolute Granulocytes (1.4-6.9) Segmented Neutrophils (36.-66.) % Lymphocytes (Manual) (24-44) % Monocytes (Manual) (0.0-12.0) % Eosinophils (Manual) (0.00-3.0) % Basophils (Manual) (0.0-1.0) % Basophils # (0-0.4) Platelet Estimate (NORMAL) Sodium (137-145) mmol/L Potassium (3.5-5.1) mmol/L Chloride (98-107) mmol/L Carbon Dioxide (22-30) mmol/L Anion Gap (5-15) MEQ/L BUN (9-20) mg/dL Creatinine (0.66-1.25) mg/dL Estimated GFR ML/MIN Glucose (74-106) mg/dL Calcium (8.4-10.2) mg/dL Troponin I 0.019 0.020 (0.000-0.034) ng/mL Stool Occult Bld Scrn NEGATIVE (NEGATIVE) 04/13/19 04/14/19 04/14/19 Range/Units 22:45 04:25 04:25 WBC 5.3 (4.0-10.5) K/mm3 RBC 4.43 (4.1-5.6) M/mm3 Hgb 13.4 (12.5-18.0) gm/dl Hct 39.7 L (42-50) % MCV 89.6 (78-100) fl MCH 30.2 (26-32) pg MCHC 33.8 (32-36) g/dl RDW 13.7 (11.5-14.0) % Plt Count 108 L (150-450) K/mm3 MPV 9.3 (6-9.5) fl Gran % 62.7 (36.0-66.0) % Eos # (Auto) 0.05 (0-0.5) Absolute Lymphs (auto) 1.27 (1.0-4.6) Absolute Monos (auto) 0.63 (0.0-1.3) Lymphocytes % 24.1 (24.0-44.0) % Monocytes % 12.0 (0.0-12.0) % Eosinophils % 1.0 (0.00-5.0) % Basophils % 0.2 (0.0-0.4) % Absolute Granulocytes 3.30 (1.4-6.9) Segmented Neutrophils (36.-66.) % Lymphocytes (Manual) (24-44) % Monocytes (Manual) (0.0-12.0) % Eosinophils (Manual) (0.00-3.0) % Basophils (Manual) (0.0-1.0) % Basophils # 0.01 (0-0.4) Platelet Estimate (NORMAL) Sodium 139 (137-145) mmol/L Potassium 3.7 (3.5-5.1) mmol/L Chloride 107 (98-107) mmol/L Carbon Dioxide 24 (22-30) mmol/L Anion Gap 12.0 (5-15) MEQ/L BUN 13 (9-20) mg/dL Creatinine 1.03 (0.66-1.25) mg/dL Estimated GFR > 60.0 ML/MIN Glucose 95 (74-106) mg/dL Calcium 9.4 (8.4-10.2) mg/dL Troponin I 0.019 (0.000-0.034) ng/mL Stool Occult Bld Scrn (NEGATIVE) - Radiology Impressions Radiology Exams & Impressions: Radiology Procedures Category Date Time Status ABDOMEN AND PELVIS W CONTRAST [CT] Stat Exams 04/13/19 01:49 Completed Assessment/Plan (1) Chest pain, rule out acute myocardial infarction Current Visit: Yes Status: Acute Assessment & Plan: Chief Complaint Diagnosis colitis, l1 fx Allergies Allergy/AdvReac Type Severity Reaction Status Date / Time iodine Allergy Mild Verified 05/26/17 11:56 Vital Signs (Last 24 hours) Temp Pulse Resp BP BP Pulse Ox 04/14/19 11:58 98.2 F 61 18 172/83 96 04/14/19 07:42 98.3 F 60 18 136/65 95 04/14/19 04:00 97.8 F 60 16 146/71 96 04/14/19 00:00 98.0 F 79 20 193/93 96 04/13/19 20:00 98.9 F 72 20 162/75 98 04/13/19 15:50 60 182/78 04/13/19 15:45 60 180/72 04/13/19 15:40 60 192/98 04/13/19 15:22 97.6 F 61 20 192/87 98 04/13/19 13:21 98.4 F 63 18 196/98 99 04/13/19 13:00 98.4 F 63 18 196/98 99 04/13/19 12:06 61 18 175/98 96 Home Medications Medication Instructions Recorded Confirmed Last Taken Type Lisinopril 20 mg pe PO DAILY 04/13/19 04/13/19 04/12/19 History Current Medications Generic Name Dose Route Start Last Admin Trade Name Freq PRN Reason Stop Dose Admin Acetaminophen 650 mg 04/13/19 14:50 04/14/19 02:43 Tylenol 325 Mg PO 05/13/19 14:49 650 mg Q4H PRN PRN Administration PAIN Clopidogrel Bisulfate 75 mg 04/13/19 15:00 04/14/19 09:00 Plavix 75 Mg Tablet PO 05/13/19 14:59 75 mg DAILY CARLOS A Administration Dicyclomine HCl 20 mg 04/13/19 10:00 04/14/19 09:00 Bentyl 20 Mg PO 05/13/19 09:59 20 mg QID CARLOS A Administration Enoxaparin Sodium 40 mg 04/13/19 15:10 04/14/19 09:02 Enoxaparin Sodium SQ 05/13/19 15:09 40 mg DAILY CARLOS A Administration Famotidine 20 mg 04/13/19 22:00 04/14/19 09:01 Pepcid 20 Mg PO 05/13/19 21:59 20 mg BID CARLOS A Administration Fish Oil 1,000 mg 04/13/19 22:00 04/14/19 09:00 Fish Oil 1,000 Mg Capsule PO 05/13/19 21:59 1,000 mg BID CARLOS A Administration Gabapentin 800 mg 04/13/19 22:00 04/14/19 09:00 Neurontin 400 Mg PO 05/13/19 21:59 800 mg BID CARLOS A Administration Hydralazine HCl 10 mg 04/13/19 14:59 Apresoline 20 Mg/Ml Inj IV 05/13/19 14:58 Q4H/PRN PRN HYPERTENSION Hydromorphone HCl 1 mg 04/13/19 14:57 04/14/19 08:58 Dilaudid 2 Mg Injection IV 04/18/19 14:56 1 mg Q2HPRN PRN Administration PAIN Levofloxacin/Dextrose 500 mg in 100 mls @ 100 mls/hr 04/13/19 15:30 04/14/19 09:08 Levofloxacin 500mg/100ml D5w IV 05/13/19 15:29 Not Given Q24H10 CARLOS A Sodium Chloride 1,000 mls @ 100 mls/hr 04/13/19 15:15 04/14/19 02:36 Sodium Chloride 0.9% 1000 Ml IV 05/13/19 15:14 100 mls/hr .Q10H CARLOS A Administration Levothyroxine Sodium 25 mcg 04/13/19 15:00 04/14/19 09:00 Synthroid 25 Mcg PO 05/13/19 14:59 25 mcg DAILY CARLOS A Administration Lisinopril 20 mg 04/13/19 15:00 04/14/19 09:02 Zestril 20 Mg PO 05/13/19 14:59 20 mg DAILY CARLOS A Administration Loratadine 10 mg 04/13/19 15:00 04/14/19 09:00 Claritin 10 Mg PO 05/13/19 14:59 10 mg DAILY CARLOS A Administration Magnesium Oxide 400 mg 04/13/19 15:00 04/14/19 09:00 Mag-Ox 400 PO 05/13/19 14:59 400 mg DAILY CARLOS A Administration Metoprolol Tartrate 25 mg 04/13/19 15:00 04/14/19 09:00 Lopressor 25mg Tab PO 05/13/19 14:59 25 mg DAILY CARLOS A Administration Nitroglycerin 0.4 mg 04/13/19 15:46 04/13/19 15:50 Nitrostat 0.4 Mg Tablet SL 05/13/19 15:45 0.4 mg Q5MIN PRN MR X 3 PRN Administration CHEST PAIN Pantoprazole Sodium 40 mg 04/13/19 15:15 04/14/19 09:08 Protonix 40 Mg Iv IV 05/13/19 15:14 40 mg Q24H10 CARLOS A Administration Promethazine HCl 12.5 mg 04/13/19 14:58 04/13/19 21:53 Phenergan 25 Mg Inj IV 05/13/19 14:57 12.5 mg Q4H PRN PRN Administration NAUSEA/VOMITING Pyridoxine HCl 100 mg 04/13/19 22:00 04/14/19 09:02 Vitamin B-6 (Pyridoxine) 100 Mg PO 05/13/19 21:59 100 mg BID CARLOS A Administration Ropinirole HCl 0.5 mg 04/13/19 22:00 04/13/19 21:52 Requip 0.5 Mg PO 05/13/19 21:59 0.5 mg HS CARLOS A Administration Sertraline HCl 25 mg 04/13/19 22:00 04/14/19 09:06 Zoloft 50 Mg Tablet PO 05/13/19 21:59 25 mg BID CARLOS A Administration Simvastatin 40 mg 04/13/19 22:00 04/13/19 21:52 Zocor 20mg PO 05/13/19 21:59 40 mg HS CARLOS A Administration Discontinued Medications Generic Name Dose Route Start Last Admin Trade Name Freq PRN Reason Stop Dose Admin Al Hydrox/Mg Hydrox/Simethicone Confirm 04/13/19 04:50 Maalox Es 30 Ml Unit Dose Administered 04/13/19 04:51 Dose 30 ml .ROUTE .STK-MED ONE Dicyclomine HCl Confirm 04/13/19 10:43 Bentyl 20 Mg Administered 04/13/19 10:44 Dose 20 mg .ROUTE .STK-MED ONE Hydromorphone HCl 1 mg 04/13/19 06:21 04/13/19 06:27 Hydromorphone 1 Mg/Ml Ampule IV 04/13/19 06:22 1 mg STAT ONE Administration Hydromorphone HCl Confirm 04/13/19 06:26 Hydromorphone 1 Mg/Ml Ampule Administered 04/13/19 06:27 Dose 1 mg .ROUTE .STK-MED ONE Hydromorphone HCl Confirm 04/14/19 04:04 Hydromorphone 1 Mg/Ml Ampule Administered 04/14/19 04:05 Dose 1 mg .ROUTE .STK-MED ONE Sodium Chloride 1,000 mls @ 200 mls/hr 04/13/19 02:00 04/13/19 10:14 Sodium Chloride 0.9% 1000 Ml IV 05/13/19 01:59 Infused .Q5H CARLOS A Infusion Levofloxacin/Dextrose 500 mg in 100 mls @ 100 mls/hr 04/13/19 06:30 Levofloxacin 500mg/100ml D5w IV 04/13/19 07:29 ONCALLTOOR CARLOS A Metronidazole 500 mg in 100 mls @ 200 mls/hr 04/13/19 06:22 04/13/19 07:19 Flagyl 500 Mg Ivpb IV 04/13/19 06:51 Infused STAT STA Infusion Metronidazole Confirm 04/13/19 06:26 Flagyl 500 Mg Ivpb Administered 04/13/19 06:27 Dose 500 mg in 100 mls @ ud IV .STK-MED ONE Sodium Chloride Confirm 04/13/19 04:58 Sodium Chloride 0.9% 1000 Ml Administered 04/13/19 04:59 Dose 1,000 mls @ ud .ROUTE .STK-MED ONE Magnesium Sulfate/Dextrose 100 mls @ 200 mls/hr 04/13/19 15:00 04/13/19 16:57 Magnesium 1 Gm / 100 Ml D5w IV 04/13/19 16:29 200 mls/hr Q1H CARLOS A Administration Lidocaine HCl Confirm 04/13/19 04:49 Xylocaine Hcl Viscous * Administered 04/13/19 04:50 Dose 15 ml .ROUTE .STK-MED ONE Magnesium Hydroxide 45 ml 04/13/19 04:47 04/13/19 04:50 Gi Cocktail 45 Ml (Maalox/Lidocaine) PO 04/13/19 04:48 45 ml STAT ONE Administration Morphine Sulfate 2 mg 04/13/19 01:48 04/13/19 01:54 Morphine Sulfate 2 Mg Inj IV 04/13/19 01:49 2 mg STAT ONE Administration Morphine Sulfate Confirm 04/13/19 01:53 Morphine Sulfate 2 Mg Inj Administered 04/13/19 01:54 Dose 2 mg .ROUTE .STK-MED ONE Morphine Sulfate 4 mg 04/13/19 03:40 04/13/19 03:44 Morphine Sulfate 4 Mg Inj IV 04/13/19 03:41 4 mg STAT ONE Administration Morphine Sulfate Confirm 04/13/19 03:41 Morphine Sulfate 4 Mg Inj Administered 04/13/19 03:42 Dose 4 mg .ROUTE .STK-MED ONE Morphine Sulfate 4 mg 04/13/19 10:39 04/13/19 10:45 Morphine Sulfate 4 Mg Inj IV 04/13/19 10:40 4 mg STAT ONE Administration Morphine Sulfate Confirm 04/13/19 10:43 Morphine Sulfate 4 Mg Inj Administered 04/13/19 10:44 Dose 4 mg .ROUTE .STK-MED ONE Morphine Sulfate 4 mg 04/13/19 13:06 04/13/19 13:14 Morphine Sulfate 4 Mg Inj IV 04/13/19 14:00 4 mg 1XONLY CARLOS A Administration Nitroglycerin Confirm 04/13/19 15:42 Nitrostat 0.4 Mg Tablet Administered 04/13/19 15:43 Dose 0.4 mg SL .STK-MED ONE Ondansetron HCl 4 mg 04/13/19 01:48 04/13/19 01:54 Zofran 4 Mg/2 Ml Vial IV 04/13/19 01:49 4 mg STAT ONE Administration Ondansetron HCl Confirm 04/13/19 01:52 Zofran 4 Mg/2 Ml Vial Administered 04/13/19 01:53 Dose 4 mg .ROUTE .STK-MED ONE Ondansetron HCl 4 mg 04/13/19 08:17 04/13/19 08:47 Zofran 4 Mg/2 Ml Vial IV 04/13/19 08:18 4 mg STAT ONE Administration Ondansetron HCl Confirm 04/13/19 08:45 Zofran 4 Mg/2 Ml Vial Administered 04/13/19 08:46 Dose 4 mg .ROUTE .STK-MED ONE Ondansetron HCl 4 mg 04/13/19 13:03 04/13/19 13:18 Zofran 4 Mg/2 Ml Vial IV 04/13/19 13:04 4 mg STAT ONE Administration Intake & Output (Last 24 hours) 04/12/19 04/13/19 04/14/19 04/15/19 11:59 11:59 11:59 11:59 Intake Total 1504 Output Total 1250 Balance 254 Weight 77.111 kg 74.7 kg Laboratory Results (Last 24 hours) 04/14/19 04/14/19 04/13/19 04:25 04:25 22:45 WBC 5.3 RBC 4.43 Hgb 13.4 Hct 39.7 L MCV 89.6 MCH 30.2 MCHC 33.8 RDW 13.7 Plt Count 108 L MPV 9.3 Gran % 62.7 Eos # (Auto) 0.05 Absolute Lymphs (auto) 1.27 Absolute Monos (auto) 0.63 Lymphocytes % 24.1 Monocytes % 12.0 Eosinophils % 1.0 Basophils % 0.2 Absolute Granulocytes 3.30 Segmented Neutrophils Lymphocytes (Manual) Monocytes (Manual) Eosinophils (Manual) Basophils (Manual) Basophils # 0.01 Platelet Estimate Sodium 139 Potassium 3.7 Chloride 107 Carbon Dioxide 24 Anion Gap 12.0 BUN 13 Creatinine 1.03 Estimated GFR > 60.0 Glucose 95 Calcium 9.4 Troponin I 0.019 Stool Occult Bld Scrn 04/13/19 04/13/19 04/13/19 19:25 16:00 15:30 WBC RBC Hgb Hct MCV MCH MCHC RDW Plt Count MPV Gran % Eos # (Auto) Absolute Lymphs (auto) Absolute Monos (auto) Lymphocytes % Monocytes % Eosinophils % Basophils % Absolute Granulocytes Segmented Neutrophils Lymphocytes (Manual) Monocytes (Manual) Eosinophils (Manual) Basophils (Manual) Basophils # Platelet Estimate Sodium Potassium Chloride Carbon Dioxide Anion Gap BUN Creatinine Estimated GFR Glucose Calcium Troponin I 0.020 0.019 Stool Occult Bld Scrn NEGATIVE 04/13/19 04/13/19 04/13/19 13:03 13:03 11:35 WBC 3.6 L RBC 4.45 Hgb 13.6 Hct 39.5 L MCV 88.8 MCH 30.6 MCHC 34.4 RDW 13.6 Plt Count 95 L MPV 9.5 Gran % Eos # (Auto) Absolute Lymphs (auto) Absolute Monos (auto) Lymphocytes % Monocytes % Eosinophils % Basophils % Absolute Granulocytes Segmented Neutrophils 73 H Lymphocytes (Manual) 14 L Monocytes (Manual) 10 Eosinophils (Manual) 2 Basophils (Manual) 1 Basophils # Platelet Estimate DECREASED Sodium 140 Potassium 3.6 Chloride 105 Carbon Dioxide 25 Anion Gap 13.3 BUN 14 Creatinine 1.07 Estimated GFR > 60.0 Glucose 105 Calcium 9.8 Troponin I 0.015 Stool Occult Bld Scrn Orders (Last 24 hours) Category Date Time Status Admit as Inpatient ROUTINE Care 04/13/19 12:21 Completed Intake [Intake and Output] Q12H Care 04/13/19 15:[address] in Observation ROUTINE Care 04/13/19 13:00 Active Telemetry q4h Care 04/13/19 16:40 Active NPO except Meds Diet 04/13/19 17:50 Active BMP AM.LAB Lab 04/14/19 04:25 Completed BMP Stat Lab 04/13/19 13:03 Completed CBC W DIFF AM.LAB Lab 04/14/19 04:25 Completed CBC W DIFF Stat Lab 04/13/19 13:03 Completed Manual Differential NC Stat Lab 04/13/19 13:03 Completed Occult Blood-Screening (Stool) [Occult Blood - Cancer Lab 04/13/19 16:00 Completed Screen] Routine TROPONIN Stat Lab 04/13/19 11:35 Completed TROPONIN Stat Lab 04/13/19 15:30 Completed TROPONIN Stat Lab 04/13/19 19:25 Completed TROPONIN Urgent Lab 04/13/19 22:45 Completed Acetaminophen 325 mg [Tylenol 325 mg] Med 04/13/19 14:50 Active 650 mg PO Q4H PRN PRN Clopidogrel Bisulfate 75 mg [PLAVIX 75 MG Tablet] Med 04/13/19 15:00 Active 75 mg PO DAILY Enoxaparin Sodium [Enoxaparin Sodium] Med 04/13/19 15:10 Active 40 mg SQ DAILY Famotidine 20 mg [Pepcid 20 MG] Med 04/13/19 22:00 Active 20 mg PO BID Gabapentin 400 mg [Neurontin 400 MG] Med 04/13/19 22:00 Active 800 mg PO BID HydrALAzine HCL 20 MG INJ [Apresoline 20 mg/ml Inj Med 04/13/19 14:59 Active *] 10 mg IV Q4H/PRN PRN Hydromorphone 1 mg/1Ml Inj [Hydromorphone 1 mg/ml Med 04/14/19 04:04 Discontinued Ampule] 1 mg .ROUTE .STK-MED ONE Hydromorphone 2Mg Inj [Dilaudid 2 mg Injection] Med 04/13/19 14:57 Active 1 mg IV Q2HPRN PRN Levofloxacin [Levofloxacin 500MG/100ML D5W] Med 04/13/19 15:30 Active 500 mg in 100 ml IV Q24H10 Levothyroxine Sodium 25 Mcg [Synthroid 25 Mcg] Med 04/13/19 15:00 Active 25 mcg PO DAILY Lisinopril 20 mg [Zestril 20 MG] Med 04/13/19 15:00 Active 20 mg PO DAILY Loratadine 10 mg [Claritin 10 mg] Med 04/13/19 15:00 Active 10 mg PO DAILY Magnesium Oxide 400 mg [Mag-Ox 400] Med 04/13/19 15:00 Active 400 mg PO DAILY Magnesium Sulfate 1 gm/100 ml* [Magnesium 1 Gm / 100 Ml Med 04/13/19 15:00 Discontinued D5W] 100 ml IV Q1H Metoprolol Tartrate 25 mg [Lopressor 25MG Tab] Med 04/13/19 15:00 Active 25 mg PO DAILY Morphine Sulfate 4 mg Inj Med 04/13/19 13:06 Discontinued 4 mg IV 1XONLY NaCl 0.9% 1000 ml [Sodium Chloride 0.9% 1000 ML] 1,000 Med 04/13/19 15:15 Active ml IV 100 mls/hr Nitroglycerin 0.4 mg Tablet [Nitrostat 0.4 MG Tablet Med 04/13/19 15:42 Discontinued ] 0.4 mg SL .STK-MED ONE Nitroglycerin 0.4 mg Tablet [Nitrostat 0.4 MG Tablet Med 04/13/19 15:46 Active ] 0.4 mg SL Q5MIN PRN MR X 3 PRN Ralston-3 Fatty Acids/Fish Oil [Fish Oil 1,000 mg Med 04/13/19 22:00 Active Capsule] 1,000 mg PO BID Ondansetron HCl 4 mg/2 ml [Zofran 4 MG/2 ML VIAL] Med 04/13/19 13:03 Discontinued 4 mg IV STAT ONE Pantoprazole 40 mg [Protonix 40 mg IV] Med 04/13/19 15:15 Active 40 mg IV Q24H10 Promethazine HCl 25 mg Amp [Phenergan 25 MG INJ] Med 04/13/19 14:58 Active 12.5 mg IV Q4H PRN PRN Pyridoxine HCl 100 mg [Vitamin B-6 (Pyridoxine) 100 Med 04/13/19 22:00 Active MG] 100 mg PO BID Ropinirole HCl 0.5 mg [Requip 0.5 MG] Med 04/13/19 22:00 Active 0.5 mg PO HS Sertraline HCl 50 mg [Zoloft 50 mg Tablet] Med 04/13/19 22:00 Active 25 mg PO BID Simvastatin 20Mg [Zocor 20Mg] Med 04/13/19 22:00 Active 40 mg PO HS EKG ROUTINE RT 04/13/19 15:20 Completed Patient Care Notes (Last 24 hours) 04/13/19 16:36 Nursing Note by Josette Mejia PT reports sharp chest pain to upper left chest with radiation to left arm and hand. pt states slight diaphoresis noted at this time though "does not know if this is from my abd pain" md at bedside pt given 3 nitrostat tabs with slight relief though states abd still hurts. chest pain is not fully resolved at this time MD aware. pt asked for something to relax him md states ok to give the phenergan as pt is still nauseated at this time too. awaiting trop results and ekg done. pt placed on tele per Dr Kirk Initialized on 04/13/19 16:36 - END OF NOTE 04/13/19 15:21 Nursing Note by Josette Mejia pt having acute chest pain to left chest radiating down left arm. stat ekg and trop ordered vs 192/87, resp 20, 98% ra Initialized on 04/13/19 15:21 - END OF NOTE Code(s): R07.9 - CHEST PAIN, UNSPECIFIED (2) L1 vertebral fracture Current Visit: Yes Status: Acute Qualifiers: Encounter type: initial encounter Fracture type: closed Fracture morphology: other fracture Qualified Code(s): S32.018A - Other fracture of first lumbar vertebra, initial encounter for closed fracture Code(s): S32.019A - UNSP FRACTURE OF FIRST LUMBAR VERTEBRA, INIT FOR CLOS FX (3) Nausea vomiting and diarrhea Current Visit: Yes Status: Acute Code(s): R11.2 - NAUSEA WITH VOMITING, UNSPECIFIED; R19.7 - DIARRHEA, UNSPECIFIED (4) Back pain Current Visit: No Status: Acute Code(s): M54.9 - DORSALGIA, UNSPECIFIED (5) Hypertension Current Visit: No Status: Acute Code(s): I10 - ESSENTIAL (PRIMARY) HYPERTENSION
[2019-04-14 19:49] LABS: Adenovirus F 40/41 NEGATIVE (NEGATIVE); Astrovirus NEGATIVE (NEGATIVE); C. Difficile Organism NEGATIVE (NEGATIVE); Campylobacter NEGATIVE (NEGATIVE); Cryptosporidium NEGATIVE (NEGATIVE); Cyclospora cayentanensis NEGATIVE (NEGATIVE); Entamoeaba histolytica NEGATIVE (NEGATIVE); Enteroaggregative E.coli NEGATIVE (NEGATIVE); Enteropathogenic E.coli NEGATIVE (NEGATIVE); Enterotoxigenic E.coli NEGATIVE (NEGATIVE); Giardia lamblia NEGATIVE (NEGATIVE); Norovirus GI/GII POSITIVE (NEGATIVE); Plesiomonas shigelloides NEGATIVE (NEGATIVE); Rotavirus A NEGATIVE (NEGATIVE); Salmonella NEGATIVE (NEGATIVE); Sapovirus NEGATIVE (NEGATIVE); Shiga-like toxin prod.E.coli NEGATIVE (NEGATIVE); Vibrio NEGATIVE (NEGATIVE); Vibrio cholerae NEGATIVE (NEGATIVE); Yersinia enterocolitica NEGATIVE (NEGATIVE)
[2019-04-14] MEDS: Requip 0.5 MG PO SCH (22:26)
[2019-04-14] MEDS: ZOCOR 20MG PO SCH (22:27)
[2019-04-15] MEDS ORDERED: Mylicon 80MG PO PRN (03:24)
[2019-04-15] MEDS: DILAUDID 2 MG INJECTION IV PRN ×2 (08:27→17:11)
[2019-04-15] MEDS: ENOXAPARIN SODIUM SQ SCH (08:28)
[2019-04-15] MEDS: PROTONIX 40 MG IV IV SCH (08:28)
[2019-04-15] MEDS: PLAVIX 75 MG Tablet PO SCH (08:29)
[2019-04-15] MEDS: Zestril 20 MG PO SCH (08:29)
[2019-04-15] MEDS: ZOLOFT 50 MG TABLET PO SCH ×2 (08:29→20:17)
[2019-04-15] MEDS: Neurontin 400 MG PO SCH ×2 (08:29→20:16)
[2019-04-15] MEDS: CLARITIN 10 MG PO SCH (08:29)
[2019-04-15] MEDS: MAG-OX 400 PO SCH (08:29)
[2019-04-15] MEDS: Lopressor 25MG Tab PO SCH (08:29)
[2019-04-15] MEDS: FISH OIL 1,000 MG CAPSULE PO SCH ×2 (08:29→20:16)
[2019-04-15] MEDS: SYNTHROID 25 MCG PO SCH (08:29)
[2019-04-15] MEDS: BENTYL 20 MG PO SCH ×4 (08:30→20:16)
[2019-04-15] MEDS: Pepcid 20 MG PO SCH ×2 (08:30→20:16)
[2019-04-15] MEDS: Sodium Chloride 0.9% 1000 ML 1,000 ML IV SCH ×2 (08:32→19:45)
[2019-04-15] MEDS: Phenergan 25 MG INJ IV PRN (08:43)
--- NOTE | 2019-04-15 12:42 | PCM.NOTE ---
Date and Time: 04/15/19 1240 Subjective Assessment: doing ok - Review of Systems Constitutional: No Fever, No Chills Eyes: No Symptoms Ears, Nose, & Throat: No Symptoms Respiratory: No Cough, No Short Of Breath Cardiac: No Chest Pain, No Edema, No Syncope Abdominal/Gastrointestinal: No Abdominal Pain, No Nausea, No Vomiting, No Diarrhea Genitourinary Symptoms: No Dysuria Musculoskeletal: No Back Pain, No Neck Pain Skin: No Rash Neurological: No Dizziness, No Focal Weakness, No Sensory Changes Psychological: No Symptoms Endocrine: No Symptoms Hematologic/Lymphatic: No Symptoms Immunological/Allergic: No Symptoms Objective Exam General Appearance: no apparent distress, alert Neurologic Exam: alert, oriented x 3, cooperative, normal mood/affect, nml cerebellar function, sensation nml, No motor deficits Skin Exam: normal color, warm, dry Eye Exam: PERRL, EOMI, eyes nml inspection Ears, Nose, Throat Exam: normal ENT inspection, pharynx normal, moist mucous membranes Neck Exam: normal inspection, non-tender, supple, full range of motion Respiratory Exam: normal breath sounds, lungs clear, No respiratory distress Cardiovascular Exam: regular rate/rhythm, normal heart sounds Gastrointestinal/Abdomen Exam: soft, No tenderness, No mass Extremity Exam: normal inspection, normal range of motion Back Exam: normal inspection, normal range of motion, No CVA tenderness, No vertebral tenderness Male Genitalia Exam: deferred Rectal Exam: deferred OBJECTIVE DATA Vital Signs: Vital Signs - 24 hr Temp Pulse Resp BP Pulse Ox 04/15/19 07:29 98.4 F 66 18 146/77 96 04/15/19 04:00 98.8 F 63 18 160/74 95 04/15/19 00:00 98.6 F 62 17 147/73 95 04/14/19 20:00 97.8 F 64 16 113/58 95 04/14/19 16:00 98.4 F 63 18 160/75 97 Pain Assessment - Last Documented Pain Intensity 10 Pain Scale Used 0-10 Pain Scale Intake and Output: Intake & Output 04/13/19 04/14/19 04/15/19 04/16/19 11:59 11:59 11:59 11:59 Intake Total 1504 3167 Output Total 1250 1550 Balance 254 1617 Weight 77.111 kg 74.7 kg Lab Results: Lab Results-Last 24 Hours 04/14/19 Range/Units 17:33 Stl C. cayetanensis PCR NEGATIVE (NEGATIVE) Stl Adenov F 40/41 PCR NEGATIVE (NEGATIVE) Stool Astrovirus (PCR) NEGATIVE (NEGATIVE) Stool Cryptosporidium PCR NEGATIVE (NEGATIVE) Stool EPEC (PCR) NEGATIVE (NEGATIVE) Stool EAEC (PCR) NEGATIVE (NEGATIVE) Stl E. histolytica PCR NEGATIVE (NEGATIVE) Stl P. shigelloides PCR NEGATIVE (NEGATIVE) Stool Sapovirus (PCR) NEGATIVE (NEGATIVE) St Y.enterocolitica PCR NEGATIVE (NEGATIVE) Stool Vibrio (PCR) NEGATIVE (NEGATIVE) Stl Vibrio cholerae PCR NEGATIVE (NEGATIVE) Stl Norovirus GI/GII PCR POSITIVE A (NEGATIVE) Campylobacter (PCR) NEGATIVE (NEGATIVE) C. difficile (PCR) NEGATIVE (NEGATIVE) Enterotoxigenic E. coli NEGATIVE (NEGATIVE) E.coli Shiga Toxins NEGATIVE (NEGATIVE) Giardia lamblia NEGATIVE (NEGATIVE) Rotavirus A (PCR) NEGATIVE (NEGATIVE) Salmonella (PCR) NEGATIVE (NEGATIVE) Shigella (PCR) NEGATIVE (NEGATIVE) Assessment/Plan (1) Enteritis due to Norovirus Current Visit: Yes Status: Acute Assessment & Plan: Chief Complaint Diagnosis fall, closed lumbar fracture, abdominal pain, nausea for 1-2 days Allergies Allergy/AdvReac Type Severity Reaction Status Date / Time iodine Allergy Mild Verified 05/26/17 11:56 Vital Signs (Last 24 hours) Temp Pulse Resp BP Pulse Ox 04/15/19 07:29 98.4 F 66 18 146/77 96 04/15/19 04:00 98.8 F 63 18 160/74 95 04/15/19 00:00 98.6 F 62 17 147/73 95 04/14/19 20:00 97.8 F 64 16 113/58 95 04/14/19 16:00 98.4 F 63 18 160/75 97 Home Medications Medication Instructions Recorded Confirmed Last Taken Type Lisinopril 20 mg pe PO DAILY 04/13/19 04/13/19 04/12/19 History Current Medications Generic Name Dose Route Start Last Admin Trade Name Freq PRN Reason Stop Dose Admin Acetaminophen 650 mg 04/13/19 14:50 04/14/19 02:43 Tylenol 325 Mg PO 05/13/19 14:49 650 mg Q4H PRN PRN Administration PAIN Clopidogrel Bisulfate 75 mg 04/13/19 15:00 04/15/19 08:29 Plavix 75 Mg Tablet PO 05/13/19 14:59 75 mg DAILY CARLOS A Administration Dicyclomine HCl 20 mg 04/13/19 10:00 04/15/19 08:30 Bentyl 20 Mg PO 05/13/19 09:59 20 mg QID CARLOS A Administration Enoxaparin Sodium 40 mg 04/13/19 15:10 04/15/19 08:28 Enoxaparin Sodium SQ 05/13/19 15:09 40 mg DAILY CARLOS A Administration Famotidine 20 mg 04/13/19 22:00 04/15/19 08:30 Pepcid 20 Mg PO 05/13/19 21:59 20 mg BID CARLOS A Administration Fish Oil 1,000 mg 04/13/19 22:00 04/15/19 08:29 Fish Oil 1,000 Mg Capsule PO 05/13/19 21:59 1,000 mg BID CARLOS A Administration Gabapentin 800 mg 04/13/19 22:00 04/15/19 08:29 Neurontin 400 Mg PO 05/13/19 21:59 800 mg BID CARLOS A Administration Hydralazine HCl 10 mg 04/13/19 14:59 Apresoline 20 Mg/Ml Inj IV 05/13/19 14:58 Q4H/PRN PRN HYPERTENSION Hydromorphone HCl 1 mg 04/13/19 14:57 04/15/19 08:27 Dilaudid 2 Mg Injection IV 04/18/19 14:56 1 mg Q2HPRN PRN Administration PAIN Levofloxacin/Dextrose 500 mg in 100 mls @ 100 mls/hr 04/13/19 15:30 04/14/19 13:41 Levofloxacin 500mg/100ml D5w IV 05/13/19 15:29 100 mls/hr Q24H10 CARLOS A Administration Sodium Chloride 1,000 mls @ 100 mls/hr 04/13/19 15:15 04/15/19 08:32 Sodium Chloride 0.9% 1000 Ml IV 05/13/19 15:14 100 mls/hr .Q10H CARLOS A Administration Levothyroxine Sodium 25 mcg 04/13/19 15:00 04/15/19 08:29 Synthroid 25 Mcg PO 05/13/19 14:59 25 mcg DAILY CARLOS A Administration Lisinopril 20 mg 04/13/19 15:00 04/15/19 08:29 Zestril 20 Mg PO 05/13/19 14:59 20 mg DAILY CARLOS A Administration Loratadine 10 mg 04/13/19 15:00 04/15/19 08:29 Claritin 10 Mg PO 05/13/19 14:59 10 mg DAILY CARLOS A Administration Magnesium Oxide 400 mg 04/13/19 15:00 04/15/19 08:29 Mag-Ox 400 PO 05/13/19 14:59 400 mg DAILY CARLOS A Administration Metoprolol Tartrate 25 mg 04/13/19 15:00 04/15/19 08:29 Lopressor 25mg Tab PO 05/13/19 14:59 25 mg DAILY CARLOS A Administration Nitroglycerin 0.4 mg 04/13/19 15:46 04/13/19 15:50 Nitrostat 0.4 Mg Tablet SL 05/13/19 15:45 0.4 mg Q5MIN PRN MR X 3 PRN Administration CHEST PAIN Pantoprazole Sodium 40 mg 04/13/19 15:15 04/15/19 08:28 Protonix 40 Mg Iv IV 05/13/19 15:14 40 mg Q24H10 CARLOS A Administration Promethazine HCl 12.5 mg 04/13/19 14:58 04/15/19 08:43 Phenergan 25 Mg Inj IV 05/13/19 14:57 12.5 mg Q4H PRN PRN Administration NAUSEA/VOMITING Pyridoxine HCl 100 mg 04/13/19 22:00 04/14/19 22:28 Vitamin B-6 (Pyridoxine) 100 Mg PO 05/13/19 21:59 100 mg BID CARLOS A Administration Ropinirole HCl 0.5 mg 04/13/19 22:00 04/14/19 22:26 Requip 0.5 Mg PO 05/13/19 21:59 0.5 mg HS CARLOS A Administration Sertraline HCl 25 mg 04/13/19 22:00 04/15/19 08:29 Zoloft 50 Mg Tablet PO 05/13/19 21:59 25 mg BID CARLOS A Administration Simethicone 80 mg 04/15/19 03:24 04/15/19 03:29 Mylicon 80mg PO 05/15/19 03:23 80 mg QID PRN PRN Administration GAS Simvastatin 40 mg 04/13/19 22:00 04/14/19 22:27 Zocor 20mg PO 05/13/19 21:59 40 mg HS CARLOS A Administration Discontinued Medications Generic Name Dose Route Start Last Admin Trade Name Freq PRN Reason Stop Dose Admin Al Hydrox/Mg Hydrox/Simethicone Confirm 04/13/19 04:50 Maalox Es 30 Ml Unit Dose Administered 04/13/19 04:51 Dose 30 ml .ROUTE .STK-MED ONE Dicyclomine HCl Confirm 04/13/19 10:43 Bentyl 20 Mg Administered 04/13/19 10:44 Dose 20 mg .ROUTE .STK-MED ONE Hydromorphone HCl 1 mg 04/13/19 06:21 04/13/19 06:27 Hydromorphone 1 Mg/Ml Ampule IV 04/13/19 06:22 1 mg STAT ONE Administration Hydromorphone HCl Confirm 04/13/19 06:26 Hydromorphone 1 Mg/Ml Ampule Administered 04/13/19 06:27 Dose 1 mg .ROUTE .STK-MED ONE Hydromorphone HCl Confirm 04/14/19 04:04 Hydromorphone 1 Mg/Ml Ampule Administered 04/14/19 04:05 Dose 1 mg .ROUTE .STK-MED ONE Sodium Chloride 1,000 mls @ 200 mls/hr 04/13/19 02:00 04/13/19 10:14 Sodium Chloride 0.9% 1000 Ml IV 05/13/19 01:59 Infused .Q5H CARLOS A Infusion Levofloxacin/Dextrose 500 mg in 100 mls @ 100 mls/hr 04/13/19 06:30 Levofloxacin 500mg/100ml D5w IV 04/13/19 07:29 ONCALLTOOR CARLOS A Metronidazole 500 mg in 100 mls @ 200 mls/hr 04/13/19 06:22 04/13/19 07:19 Flagyl 500 Mg Ivpb IV 04/13/19 06:51 Infused STAT STA Infusion Metronidazole Confirm 04/13/19 06:26 Flagyl 500 Mg Ivpb Administered 04/13/19 06:27 Dose 500 mg in 100 mls @ ud IV .STK-MED ONE Sodium Chloride Confirm 04/13/19 04:58 Sodium Chloride 0.9% 1000 Ml Administered 04/13/19 04:59 Dose 1,000 mls @ ud .ROUTE .STK-MED ONE Magnesium Sulfate/Dextrose 100 mls @ 200 mls/hr 04/13/19 15:00 04/13/19 16:57 Magnesium 1 Gm / 100 Ml D5w IV 04/13/19 16:29 200 mls/hr Q1H CARLOS A Administration Lidocaine HCl Confirm 04/13/19 04:49 Xylocaine Hcl Viscous * Administered 04/13/19 04:50 Dose 15 ml .ROUTE .STK-MED ONE Magnesium Hydroxide 45 ml 04/13/19 04:47 04/13/19 04:50 Gi Cocktail 45 Ml (Maalox/Lidocaine) PO 04/13/19 04:48 45 ml STAT ONE Administration Morphine Sulfate 2 mg 04/13/19 01:48 04/13/19 01:54 Morphine Sulfate 2 Mg Inj IV 04/13/19 01:49 2 mg STAT ONE Administration Morphine Sulfate Confirm 04/13/19 01:53 Morphine Sulfate 2 Mg Inj Administered 04/13/19 01:54 Dose 2 mg .ROUTE .STK-MED ONE Morphine Sulfate 4 mg 04/13/19 03:40 04/13/19 03:44 Morphine Sulfate 4 Mg Inj IV 04/13/19 03:41 4 mg STAT ONE Administration Morphine Sulfate Confirm 04/13/19 03:41 Morphine Sulfate 4 Mg Inj Administered 04/13/19 03:42 Dose 4 mg .ROUTE .STK-MED ONE Morphine Sulfate 4 mg 04/13/19 10:39 04/13/19 10:45 Morphine Sulfate 4 Mg Inj IV 04/13/19 10:40 4 mg STAT ONE Administration Morphine Sulfate Confirm 04/13/19 10:43 Morphine Sulfate 4 Mg Inj Administered 04/13/19 10:44 Dose 4 mg .ROUTE .STK-MED ONE Morphine Sulfate 4 mg 04/13/19 13:06 04/13/19 13:14 Morphine Sulfate 4 Mg Inj IV 04/13/19 14:00 4 mg 1XONLY CARLOS A Administration Nitroglycerin Confirm 04/13/19 15:42 Nitrostat 0.4 Mg Tablet Administered 04/13/19 15:43 Dose 0.4 mg SL .STK-MED ONE Ondansetron HCl 4 mg 04/13/19 01:48 04/13/19 01:54 Zofran 4 Mg/2 Ml Vial IV 04/13/19 01:49 4 mg STAT ONE Administration Ondansetron HCl Confirm 04/13/19 01:52 Zofran 4 Mg/2 Ml Vial Administered 04/13/19 01:53 Dose 4 mg .ROUTE .STK-MED ONE Ondansetron HCl 4 mg 04/13/19 08:17 04/13/19 08:47 Zofran 4 Mg/2 Ml Vial IV 04/13/19 08:18 4 mg STAT ONE Administration Ondansetron HCl Confirm 04/13/19 08:45 Zofran 4 Mg/2 Ml Vial Administered 04/13/19 08:46 Dose 4 mg .ROUTE .STK-MED ONE Ondansetron HCl 4 mg 04/13/19 13:03 04/13/19 13:18 Zofran 4 Mg/2 Ml Vial IV 04/13/19 13:04 4 mg STAT ONE Administration Intake & Output (Last 24 hours) 04/13/19 04/14/19 04/15/19 04/16/19 11:59 11:59 11:59 11:59 Intake Total 1504 3167 Output Total 1250 1550 Balance 254 1617 Weight 77.111 kg 74.7 kg Laboratory Results (Last 24 hours) 04/14/19 17:33 Stl C. cayetanensis PCR NEGATIVE Stl Adenov F 40/41 PCR NEGATIVE Stool Astrovirus (PCR) NEGATIVE Stool Cryptosporidium PCR NEGATIVE Stool EPEC (PCR) NEGATIVE Stool EAEC (PCR) NEGATIVE Stl E. histolytica PCR NEGATIVE Stl P. shigelloides PCR NEGATIVE Stool Sapovirus (PCR) NEGATIVE St Y.enterocolitica PCR NEGATIVE Stool Vibrio (PCR) NEGATIVE Stl Vibrio cholerae PCR NEGATIVE Stl Norovirus GI/GII PCR POSITIVE A Campylobacter (PCR) NEGATIVE C. difficile (PCR) NEGATIVE Enterotoxigenic E. coli NEGATIVE E.coli Shiga Toxins NEGATIVE Giardia lamblia NEGATIVE Rotavirus A (PCR) NEGATIVE Salmonella (PCR) NEGATIVE Shigella (PCR) NEGATIVE Orders (Last 24 hours) Category Date Time Status Change admission status [Change to Full Admit] ROUTINE Care 04/14/19 11:58 Active Isolation, Initiate & Maintain Q6H Care 04/15/19 07:20 Active 1800 Calorie ADA Diet 04/15/19 Lunch Active GI PANEL Urgent Lab 04/14/19 17:33 Completed Simethicone 80 mg [Mylicon 80MG] Med 04/15/19 03:24 Active 80 mg PO QID PRN PRN PT Eval & Treat (MD Order) ROUTINE PT 04/14/19 14:17 Active Code(s): A08.11 - ACUTE GASTROENTEROPATHY DUE TO NORWALK AGENT (2) Chest pain, rule out acute myocardial infarction Current Visit: Yes Status: Resolved Code(s): R07.9 - CHEST PAIN, UNSPECIFIED (3) L1 vertebral fracture Current Visit: Yes Status: Acute Qualifiers: Encounter type: initial encounter Fracture type: closed Fracture morphology: other fracture Qualified Code(s): S32.018A - Other fracture of first lumbar vertebra, initial encounter for closed fracture Code(s): S32.019A - UNSP FRACTURE OF FIRST LUMBAR VERTEBRA, INIT FOR CLOS FX (4) Nausea vomiting and diarrhea Current Visit: Yes Status: Acute Code(s): R11.2 - NAUSEA WITH VOMITING, UNSPECIFIED; R19.7 - DIARRHEA, UNSPECIFIED (5) Back pain Current Visit: Yes Status: Chronic Code(s): M54.9 - DORSALGIA, UNSPECIFIED (6) Hypertension Current Visit: No Status: Acute Code(s): I10 - ESSENTIAL (PRIMARY) HYPERTENSION
[2019-04-15] MEDS: Levofloxacin 500MG/100ML D5W 500 MG/100 ML BAG IV SCH (13:11)
[2019-04-15] MEDS: Vitamin B-6 (Pyridoxine) 100 MG PO SCH ×2 (13:11→20:19)
[2019-04-15] MEDS: MSIR 15 MG PO PRN ×2 (16:09→20:16)
[2019-04-15] MEDS: Requip 0.5 MG PO SCH (20:16)
[2019-04-15] MEDS: ZOCOR 20MG PO SCH (20:16)
[2019-04-16] MEDS: MSIR 15 MG PO PRN ×4 (00:26→20:21)
[2019-04-16] MEDS: DILAUDID 2 MG INJECTION IV PRN (02:56)
[2019-04-16] MEDS: Sodium Chloride 0.9% 1000 ML 1,000 ML IV SCH ×2 (05:58→16:48)
[2019-04-16] MEDS: Pepcid 20 MG PO SCH ×2 (08:43→20:21)
[2019-04-16] MEDS: PLAVIX 75 MG Tablet PO SCH (08:43)
[2019-04-16] MEDS: BENTYL 20 MG PO SCH ×4 (08:44→20:20)
[2019-04-16] MEDS: Lopressor 25MG Tab PO SCH (08:44)
[2019-04-16] MEDS: CLARITIN 10 MG PO SCH (08:44)
[2019-04-16] MEDS: MAG-OX 400 PO SCH (08:44)
[2019-04-16] MEDS: Zestril 20 MG PO SCH (08:44)
[2019-04-16] MEDS: SYNTHROID 25 MCG PO SCH (08:44)
[2019-04-16] MEDS: Neurontin 400 MG PO SCH ×2 (08:44→20:21)
[2019-04-16] MEDS: ENOXAPARIN SODIUM SQ SCH (08:44)
[2019-04-16] MEDS: Levofloxacin 500MG/100ML D5W 500 MG/100 ML BAG IV SCH (08:45)
[2019-04-16] MEDS: Vitamin B-6 (Pyridoxine) 100 MG PO SCH ×2 (08:45→20:22)
[2019-04-16] MEDS: PROTONIX 40 MG IV IV SCH (08:47)
[2019-04-16] MEDS: FISH OIL 1,000 MG CAPSULE PO SCH ×2 (08:47→20:21)
[2019-04-16] MEDS: ZOLOFT 50 MG TABLET PO SCH ×2 (08:47→20:20)
--- NOTE | 2019-04-16 08:52 | PCM.NOTE ---
Date and Time: 04/16/19 0850 Subjective Assessment: doing better, tolerating diet better - Review of Systems Constitutional: No Fever, No Chills Eyes: No Symptoms Ears, Nose, & Throat: No Symptoms Respiratory: No Cough, No Short Of Breath Cardiac: No Chest Pain, No Edema, No Syncope Abdominal/Gastrointestinal: No Abdominal Pain, No Nausea, No Vomiting, No Diarrhea Genitourinary Symptoms: No Dysuria Musculoskeletal: No Back Pain, No Neck Pain Skin: No Rash Neurological: No Dizziness, No Focal Weakness, No Sensory Changes Psychological: No Symptoms Endocrine: No Symptoms Hematologic/Lymphatic: No Symptoms Immunological/Allergic: No Symptoms Objective Exam General Appearance: no apparent distress, alert Neurologic Exam: alert, oriented x 3, cooperative, normal mood/affect, nml cerebellar function, sensation nml, No motor deficits Skin Exam: normal color, warm, dry Eye Exam: PERRL, EOMI, eyes nml inspection Ears, Nose, Throat Exam: normal ENT inspection, pharynx normal, moist mucous membranes Neck Exam: normal inspection, non-tender, supple, full range of motion Respiratory Exam: normal breath sounds, lungs clear, No respiratory distress Cardiovascular Exam: regular rate/rhythm, normal heart sounds Gastrointestinal/Abdomen Exam: soft, No tenderness, No mass Extremity Exam: normal inspection, normal range of motion Back Exam: normal inspection, normal range of motion, No CVA tenderness, No vertebral tenderness Male Genitalia Exam: deferred Rectal Exam: deferred OBJECTIVE DATA Vital Signs: Vital Signs - 24 hr Temp Pulse Resp BP Pulse Ox 04/16/19 07:52 97.7 F 72 18 164/90 97 04/16/19 03:09 98.6 F 62 20 148/72 98 04/16/19 00:00 98.3 F 70 20 156/89 98 04/15/19 20:00 99.0 F 62 20 153/74 96 04/15/19 16:39 98 F 59 L 20 158/83 96 04/15/19 12:55 98.7 F Pain Assessment - Last Documented Pain Intensity 8 Pain Scale Used [facility] Intake and Output: Intake & Output 04/13/19 04/14/19 04/15/19 04/16/19 11:59 11:59 11:59 11:59 Intake Total 1504 3167 2833 Output Total 1250 1550 3200 Balance 254 1617 -367 Weight 77.111 kg 74.7 kg Multi-Disciplinary Progress Notes: Multi-Disciplinary Progress Notes 04/15/19 15:21 Case Management Note by Noelle,Lydia SPOKE WITH PT AND PT'S . PT FROM HOME AND PLANS TO RETURN HOME AT DISCHARGE. DENIES NEEDS AT THIS TIME. WILL CONTINUE TO FOLLOW. Initialized on 04/15/19 15:21 - END OF NOTE 04/15/19 12:58 Physical Therapy Note by Tobi Sommers Pt is in bed and agreeable to PT. PT observed contact precautions. Pt was able to transfer out of bed, amb to restroom and return to bed indep with IV pole in tow. Pt performed standing exercises before returning to bed. Pt notes that he felt better after exercising. Pt is left in bed with call light at side. Initialized on 04/15/19 12:58 - END OF NOTE Assessment/Plan (1) Enteritis due to Norovirus Current Visit: Yes Status: Acute Assessment & Plan: improved, Last Vital Signs Temp 97.7 F 04/16/19 07:52 Pulse 72 04/16/19 07:52 Resp 18 04/16/19 07:52 BP 164/90 04/16/19 07:52 Pulse Ox 97 04/16/19 07:52 Allergies iodine Allergy (Mild, Verified 05/26/17 11:56) Active Medications Acetaminophen (Tylenol 325 Mg) 650 mg PO Q4H PRN PRN PRN Reason: PAIN Stop: 05/13/19 14:49 Last Admin: 04/14/19 02:43 Dose: 650 mg Clopidogrel Bisulfate (Plavix 75 Mg Tablet) 75 mg PO DAILY [facility] Stop: 05/13/19 14:59 Last Admin: 04/16/19 08:43 Dose: 75 mg Dicyclomine HCl (Bentyl 20 Mg) 20 mg PO QID [facility] Stop: 05/13/19 09:59 Last Admin: 04/16/19 08:44 Dose: 20 mg Enoxaparin Sodium (Enoxaparin Sodium) 40 mg SQ DAILY [facility] Stop: 05/13/19 15:09 Last Admin: 04/16/19 08:44 Dose: 40 mg Famotidine (Pepcid 20 Mg) 20 mg PO BID [facility] Stop: 05/13/19 21:59 Last Admin: 04/16/19 08:43 Dose: 20 mg Fish Oil (Fish Oil 1,000 Mg Capsule) 1,000 mg PO BID [facility] Stop: 05/13/19 21:59 Last Admin: 04/16/19 08:47 Dose: 1,000 mg Gabapentin (Neurontin 400 Mg) 800 mg PO BID CARLOS A Stop: 05/13/19 21:59 Last Admin: 04/16/19 08:44 Dose: 800 mg Hydralazine HCl (Apresoline 20 Mg/Ml Inj) 10 mg IV Q4H/PRN PRN PRN Reason: HYPERTENSION Stop: 05/13/19 14:58 Hydromorphone HCl (Dilaudid 2 Mg Injection) 1 mg IV Q2HPRN PRN PRN Reason: PAIN Stop: 04/18/19 14:56 Last Admin: 04/16/19 02:56 Dose: 1 mg Levofloxacin/Dextrose (Levofloxacin 500mg/100ml D5w) 500 mg in 100 mls @ 100 mls/hr IV Q24H10 [facility] Stop: 05/13/19 15:29 Last Admin: 04/16/19 08:45 Dose: 100 mls/hr Sodium Chloride (Sodium Chloride 0.9% 1000 Ml) 1,000 mls @ 100 mls/hr IV .Q10H [facility] Stop: 05/13/19 15:14 Last Admin: 04/16/19 05:58 Dose: 100 mls/hr Levothyroxine Sodium (Synthroid 25 Mcg) 25 mcg PO DAILY [facility] Stop: 05/13/19 14:59 Last Admin: 04/16/19 08:44 Dose: 25 mcg Lisinopril (Zestril 20 Mg) 20 mg PO DAILY [facility] Stop: 05/13/19 14:59 Last Admin: 04/16/19 08:44 Dose: 20 mg Loratadine (Claritin 10 Mg) 10 mg PO DAILY [facility] Stop: 05/13/19 14:59 Last Admin: 04/16/19 08:44 Dose: 10 mg Magnesium Oxide (Mag-Ox 400) 400 mg PO DAILY [facility] Stop: 05/13/19 14:59 Last Admin: 04/16/19 08:44 Dose: 400 mg Metoprolol Tartrate (Lopressor 25mg Tab) 25 mg PO DAILY [facility] Stop: 05/13/19 14:59 Last Admin: 04/16/19 08:44 Dose: 25 mg Morphine Sulfate (Msir 15 Mg) 15 mg PO Q4H PRN PRN PRN Reason: PAIN Stop: 04/20/19 13:05 Last Admin: 04/16/19 08:44 Dose: 15 mg Nitroglycerin (Nitrostat 0.4 Mg Tablet) 0.4 mg SL Q5MIN PRN MR X 3 PRN PRN Reason: CHEST PAIN Stop: 05/13/19 15:45 Last Admin: 04/13/19 15:50 Dose: 0.4 mg Pantoprazole Sodium (Protonix 40 Mg Iv) 40 mg IV Q24H10 [facility] Stop: 05/13/19 15:14 Last Admin: 04/16/19 08:47 Dose: 40 mg Promethazine HCl (Phenergan 25 Mg Inj) 12.5 mg IV Q4H PRN PRN PRN Reason: NAUSEA/VOMITING Stop: 05/13/19 14:57 Last Admin: 04/15/19 08:43 Dose: 12.5 mg Pyridoxine HCl (Vitamin B-6 (Pyridoxine) 100 Mg) 100 mg PO BID [facility] Stop: 05/13/19 21:59 Last Admin: 04/16/19 08:45 Dose: 100 mg Ropinirole HCl (Requip 0.5 Mg) 0.5 mg PO HS [facility] Stop: 05/13/19 21:59 Last Admin: 04/15/19 20:16 Dose: 0.5 mg Sertraline HCl (Zoloft 50 Mg Tablet) 25 mg PO BID [facility] Stop: 05/13/19 21:59 Last Admin: 04/16/19 08:47 Dose: 25 mg Simethicone (Mylicon 80mg) 80 mg PO QID PRN PRN PRN Reason: GAS Stop: 05/15/19 03:23 Last Admin: 04/15/19 03:29 Dose: 80 mg Simvastatin (Zocor 20mg) 40 mg PO HS [facility] Stop: 05/13/19 21:59 Last Admin: 04/15/19 20:16 Dose: 40 mg Intake & Output 04/15/19 04/16/19 11:59 11:59 Intake Total 5574 6963 Output Total 0874 4740 Balance 1617 -367 Orders 04/15/19 13:06 Morphine Sulfate Ir 15 mg [Msir 15 mg] 15 mg PO Q4H PRN PRN 04/15/19 Lunch 1800 Calorie ADA Code(s): A08.11 - ACUTE GASTROENTEROPATHY DUE TO NORWALK AGENT (2) Chest pain, rule out acute myocardial infarction Current Visit: Yes Status: Resolved Code(s): R07.9 - CHEST PAIN, UNSPECIFIED (3) L1 vertebral fracture Current Visit: Yes Status: Chronic Qualifiers: Encounter type: sequela Fracture type: closed Fracture morphology: other fracture Qualified Code(s): S32.018S - Other fracture of first lumbar vertebra , sequela Code(s): S32.019A - UNSP FRACTURE OF FIRST LUMBAR VERTEBRA, INIT FOR CLOS FX (4) Nausea vomiting and diarrhea Current Visit: Yes Status: Resolved Code(s): R11.2 - NAUSEA WITH VOMITING, UNSPECIFIED; R19.7 - DIARRHEA, UNSPECIFIED (5) Back pain Current Visit: Yes Status: Chronic Qualifiers: Back pain location: low back pain Chronicity: chronic Back pain laterality: unspecified Sciatica presence: without sciatica Qualified Code(s ): M54.5 - Low back pain; G89.29 - Other chronic pain Code(s): M54.9 - DORSALGIA, UNSPECIFIED (6) Hypertension Current Visit: No Status: Chronic Qualifiers: Hypertension type: essential hypertension Qualified Code(s): I10 - Essential (primary) hypertension Code(s): I10 - ESSENTIAL (PRIMARY) HYPERTENSION
[2019-04-16] MEDS: Colace 100 MG PO SCH ×2 (11:39→20:21)
[2019-04-16] MEDS: Phenergan 25 MG INJ IV PRN (12:18)
[2019-04-16] MEDS: Requip 0.5 MG PO SCH (20:21)
[2019-04-16] MEDS: ZOCOR 20MG PO SCH (20:21)
[2019-04-17] MEDS: Sodium Chloride 0.9% 1000 ML 1,000 ML IV SCH ×2 (02:36→17:22)
[2019-04-17] MEDS: MSIR 15 MG PO PRN ×2 (03:57→08:48)
--- NOTE | 2019-04-17 06:14 | PCM.NOTE ---
Date and Time: 04/17/19612 Subjective Assessment: doing better - Review of Systems Constitutional: No Fever, No Chills Eyes: No Symptoms Ears, Nose, & Throat: No Symptoms Respiratory: No Cough, No Short Of Breath Cardiac: No Chest Pain, No Edema, No Syncope Abdominal/Gastrointestinal: No Abdominal Pain, No Nausea, No Vomiting, No Diarrhea Genitourinary Symptoms: No Dysuria Musculoskeletal: No Back Pain, No Neck Pain Skin: No Rash Neurological: No Dizziness, No Focal Weakness, No Sensory Changes Psychological: No Symptoms Endocrine: No Symptoms Hematologic/Lymphatic: No Symptoms Immunological/Allergic: No Symptoms Objective Exam General Appearance: no apparent distress, alert Neurologic Exam: alert, oriented x 3, cooperative, normal mood/affect, nml cerebellar function, sensation nml, No motor deficits Skin Exam: normal color, warm, dry Eye Exam: PERRL, EOMI, eyes nml inspection Ears, Nose, Throat Exam: normal ENT inspection, pharynx normal, moist mucous membranes Neck Exam: normal inspection, non-tender, supple, full range of motion Respiratory Exam: normal breath sounds, lungs clear, No respiratory distress Cardiovascular Exam: regular rate/rhythm, normal heart sounds Gastrointestinal/Abdomen Exam: soft, No tenderness, No mass Extremity Exam: normal inspection, normal range of motion Back Exam: normal inspection, normal range of motion, No CVA tenderness, No vertebral tenderness Male Genitalia Exam: deferred Rectal Exam: deferred OBJECTIVE DATA Vital Signs: Vital Signs - 24 hr Temp Pulse Resp BP Pulse Ox 04/17/19 04:00 98.3 F 63 18 143/84 96 04/16/19 23:50 98.3 F 62 18 142/76 97 04/16/19 20:15 98.5 F 63 18 140/73 95 04/16/19 16:00 97.4 F 66 18 156/84 94 L 04/16/19 12:00 98.1 F 59 L 16 153/71 98 04/16/19 07:52 97.7 F 72 18 164/90 97 Pain Assessment - Last Documented Pain Intensity 8 Pain Scale Used [facility] Intake and Output: Intake & Output 04/14/19 04/15/19 04/16/19 04/17/19 11:59 11:59 11:59 11:59 Intake Total 1504 3167 2833 3115 Output Total 1250 1550 3200 350 Balance 254 1617 -367 2765 Weight 74.7 kg Assessment/Plan (1) Enteritis due to Norovirus Current Visit: Yes Status: Acute Assessment & Plan: doing better Code(s): A08.11 - ACUTE GASTROENTEROPATHY DUE TO NORWALK AGENT (2) Chest pain, rule out acute myocardial infarction Current Visit: Yes Status: Resolved Code(s): R07.9 - CHEST PAIN, UNSPECIFIED (3) L1 vertebral fracture Current Visit: Yes Status: Chronic Qualifiers: Encounter type: sequela Fracture type: closed Fracture morphology: other fracture Qualified Code(s): S32.018S - Other fracture of first lumbar vertebra , sequela Code(s): S32.019A - UNSP FRACTURE OF FIRST LUMBAR VERTEBRA, INIT FOR CLOS FX (4) Nausea vomiting and diarrhea Current Visit: Yes Status: Resolved Code(s): R11.2 - NAUSEA WITH VOMITING, UNSPECIFIED; R19.7 - DIARRHEA, UNSPECIFIED (5) Back pain Current Visit: Yes Status: Chronic Qualifiers: Back pain location: low back pain Chronicity: chronic Back pain laterality: unspecified Sciatica presence: without sciatica Qualified Code(s ): M54.5 - Low back pain; G89.29 - Other chronic pain Code(s): M54.9 - DORSALGIA, UNSPECIFIED (6) Hypertension Current Visit: No Status: Chronic Qualifiers: Hypertension type: essential hypertension Qualified Code(s): I10 - Essential (primary) hypertension Code(s): I10 - ESSENTIAL (PRIMARY) HYPERTENSION
[2019-04-17] MEDS: BENTYL 20 MG PO SCH ×4 (09:45→22:48)
[2019-04-17] MEDS: CLARITIN 10 MG PO SCH (09:45)
[2019-04-17] MEDS: FISH OIL 1,000 MG CAPSULE PO SCH ×2 (09:45→22:48)
[2019-04-17] MEDS: ENOXAPARIN SODIUM SQ SCH (09:45)
[2019-04-17] MEDS: Neurontin 400 MG PO SCH ×2 (09:46→22:48)
[2019-04-17] MEDS: PLAVIX 75 MG Tablet PO SCH (09:46)
[2019-04-17] MEDS: Lopressor 25MG Tab PO SCH (09:46)
[2019-04-17] MEDS: Levofloxacin 500MG/100ML D5W 500 MG/100 ML BAG IV SCH (09:46)
[2019-04-17] MEDS: Pepcid 20 MG PO SCH ×2 (09:46→22:48)
[2019-04-17] MEDS: MAG-OX 400 PO SCH (09:46)
[2019-04-17] MEDS: PROTONIX 40 MG IV IV SCH (09:47)
[2019-04-17] MEDS: ZOLOFT 50 MG TABLET PO SCH ×2 (09:47→22:48)
[2019-04-17] MEDS: Vitamin B-6 (Pyridoxine) 100 MG PO SCH ×2 (09:47→22:49)
[2019-04-17] MEDS: Zestril 20 MG PO SCH (09:47)
[2019-04-17] MEDS: SYNTHROID 25 MCG PO SCH (09:47)
[2019-04-17] MEDS: Colace 100 MG PO SCH ×2 (09:50→22:48)
[2019-04-17] MEDS: DILAUDID 2 MG INJECTION IV PRN ×2 (11:37→20:42)
[2019-04-17] MEDS: Phenergan 25 MG INJ IV PRN (11:38)
[2019-04-17] MEDS: Requip 0.5 MG PO SCH (22:48)
[2019-04-17] MEDS: ZOCOR 20MG PO SCH (22:48)
[2019-04-18] MEDS: DILAUDID 2 MG INJECTION IV PRN (00:49)
[2019-04-18] MEDS: Sodium Chloride 0.9% 1000 ML 1,000 ML IV SCH (03:47)
[2019-04-18] MEDS: MSIR 15 MG PO PRN ×2 (03:53→09:39)
[2019-04-18 07:49] VITALS: BP 149/81; PULSE 61; O2SAT 94
[2019-04-18] MEDS: PLAVIX 75 MG Tablet PO SCH (09:34)
[2019-04-18] MEDS: ENOXAPARIN SODIUM SQ SCH (09:34)
[2019-04-18] MEDS: Levofloxacin 500MG/100ML D5W 500 MG/100 ML BAG IV SCH (09:34)
[2019-04-18] MEDS: FISH OIL 1,000 MG CAPSULE PO SCH (09:35)
[2019-04-18] MEDS: SYNTHROID 25 MCG PO SCH (09:35)
[2019-04-18] MEDS: BENTYL 20 MG PO SCH (09:35)
[2019-04-18] MEDS: Neurontin 400 MG PO SCH (09:35)
[2019-04-18] MEDS: Pepcid 20 MG PO SCH (09:35)
[2019-04-18] MEDS: Colace 100 MG PO SCH (09:35)
[2019-04-18] MEDS: Zestril 20 MG PO SCH (09:35)
[2019-04-18] MEDS: Lopressor 25MG Tab PO SCH (09:35)
[2019-04-18] MEDS: MAG-OX 400 PO SCH (09:35)
[2019-04-18] MEDS: ZOLOFT 50 MG TABLET PO SCH (09:35)
[2019-04-18] MEDS: CLARITIN 10 MG PO SCH (09:35)
[2019-04-18] MEDS: PROTONIX 40 MG IV IV SCH (09:35)
[2019-04-18] MEDS: Vitamin B-6 (Pyridoxine) 100 MG PO SCH (09:35)
[2019-04-18] MEDS: Phenergan 25 MG INJ IV PRN (10:59)
--- NOTE | 2019-04-18 12:31 | PCM.DS ---
Discharge Summary Date of Admission: 04/14/19 11:58 Admitting Physician: JAVIER MARTE Primary Care Provider: GAUDENCIO SHORE Allergies Allergies iodine Allergy (Mild, Verified 05/26/17 11:56) Hospital Summary - Hospital Course Hospital Course: Chief Complaint Diagnosis fall, closed lumbar fracture, abdominal pain, nausea for 1-2 days Allergies Allergy/AdvReac Type Severity Reaction Status Date / Time iodine Allergy Mild Verified 05/26/17 11:56 Vital Signs (Last 24 hours) Temp Pulse Resp BP Pulse Ox 04/18/19 07:49 97.9 F 61 17 149/81 94 L 04/18/19 04:00 98.0 F 67 18 162/92 98 04/17/19 23:36 98.7 F 69 20 163/79 95 04/17/19 20:00 98.5 F 64 18 156/83 97 04/17/19 16:00 96.3 F 63 16 157/87 93 L Home Medications Medication Instructions Recorded Confirmed Last Taken Type lisinopriL [Lisinopril] 20 mg pe PO DAILY 04/13/19 04/13/19 04/12/19 History Current Medications Generic Name Dose Route Start Last Admin Trade Name Freq PRN Reason Stop Dose Admin Acetaminophen 650 mg 04/13/19 14:50 04/14/19 02:43 Tylenol 325 Mg PO 05/13/19 14:49 650 mg Q4H PRN PRN Administration PAIN Clopidogrel Bisulfate 75 mg 04/13/19 15:00 04/18/19 09:34 Plavix 75 Mg Tablet PO 05/13/19 14:59 75 mg DAILY CARLOS A Administration Dicyclomine HCl 20 mg 04/13/19 10:00 04/18/19 09:35 Bentyl 20 Mg PO 05/13/19 09:59 20 mg QID CARLOS A Administration Docusate Sodium 100 mg 04/16/19 10:00 04/18/19 09:35 Colace 100 Mg PO 05/16/19 09:59 100 mg BID CARLOS A Administration Enoxaparin Sodium 40 mg 04/13/19 15:10 04/18/19 09:34 Enoxaparin Sodium SQ 05/13/19 15:09 40 mg DAILY CARLOS A Administration Famotidine 20 mg 04/13/19 22:00 04/18/19 09:35 Pepcid 20 Mg PO 05/13/19 21:59 20 mg BID CARLOS A Administration Fish Oil 1,000 mg 04/13/19 22:00 04/18/19 09:35 Fish Oil 1,000 Mg Capsule PO 05/13/19 21:59 1,000 mg BID CARLOS A Administration Gabapentin 800 mg 04/13/19 22:00 04/18/19 09:35 Neurontin 400 Mg PO 05/13/19 21:59 800 mg BID CARLOS A Administration Hydralazine HCl 10 mg 04/13/19 14:59 Apresoline 20 Mg/Ml Inj IV 05/13/19 14:58 Q4H/PRN PRN HYPERTENSION Hydromorphone HCl 1 mg 04/13/19 14:57 04/18/19 00:49 Dilaudid 2 Mg Injection IV 04/18/19 14:56 1 mg Q2HPRN PRN Administration PAIN Levofloxacin/Dextrose 500 mg in 100 mls @ 100 mls/hr 04/13/19 15:30 04/18/19 09:34 Levofloxacin 500mg/100ml D5w IV 05/13/19 15:29 100 mls/hr Q24H10 CARLOS A Administration Sodium Chloride 1,000 mls @ 100 mls/hr 04/13/19 15:15 04/18/19 03:47 Sodium Chloride 0.9% 1000 Ml IV 05/13/19 15:14 100 mls/hr .Q10H CARLOS A Administration Levothyroxine Sodium 25 mcg 04/13/19 15:00 04/18/19 09:35 Synthroid 25 Mcg PO 05/13/19 14:59 25 mcg DAILY CARLOS A Administration Lisinopril 20 mg 04/13/19 15:00 04/18/19 09:35 Zestril 20 Mg PO 05/13/19 14:59 20 mg DAILY CARLOS A Administration Loratadine 10 mg 04/13/19 15:00 04/18/19 09:35 Claritin 10 Mg PO 05/13/19 14:59 10 mg DAILY CARLOS A Administration Magnesium Oxide 400 mg 04/13/19 15:00 04/18/19 09:35 Mag-Ox 400 PO 05/13/19 14:59 400 mg DAILY CARLOS A Administration Metoprolol Tartrate 25 mg 04/13/19 15:00 04/18/19 09:35 Lopressor 25mg Tab PO 05/13/19 14:59 25 mg DAILY CARLOS A Administration Morphine Sulfate 15 mg 04/15/19 13:06 04/18/19 09:39 Msir 15 Mg PO 04/20/19 13:05 15 mg Q4H PRN PRN Administration PAIN Nitroglycerin 0.4 mg 04/13/19 15:46 04/13/19 15:50 Nitrostat 0.4 Mg Tablet SL 05/13/19 15:45 0.4 mg Q5MIN PRN MR X 3 PRN Administration CHEST PAIN Pantoprazole Sodium 40 mg 04/13/19 15:15 04/18/19 09:35 Protonix 40 Mg Iv IV 05/13/19 15:14 40 mg Q24H10 CARLOS A Administration Promethazine HCl 12.5 mg 04/13/19 14:58 04/18/19 10:59 Phenergan 25 Mg Inj IV 05/13/19 14:57 12.5 mg Q4H PRN PRN Administration NAUSEA/VOMITING Pyridoxine HCl 100 mg 04/13/19 22:00 04/18/19 09:35 Vitamin B-6 (Pyridoxine) 100 Mg PO 05/13/19 21:59 100 mg BID CARLOS A Administration Ropinirole HCl 0.5 mg 04/13/19 22:00 04/17/19 22:48 Requip 0.5 Mg PO 05/13/19 21:59 0.5 mg HS CARLOS A Administration Sertraline HCl 25 mg 04/13/19 22:00 04/18/19 09:35 Zoloft 50 Mg Tablet PO 05/13/19 21:59 25 mg BID CARLOS A Administration Simethicone 80 mg 04/15/19 03:24 04/15/19 03:29 Mylicon 80mg PO 05/15/19 03:23 80 mg QID PRN PRN Administration GAS Simvastatin 40 mg 04/13/19 22:00 04/17/19 22:48 Zocor 20mg PO 05/13/19 21:59 40 mg HS CARLOS A Administration Discontinued Medications Generic Name Dose Route Start Last Admin Trade Name Freq PRN Reason Stop Dose Admin Al Hydrox/Mg Hydrox/Simethicone Confirm 04/13/19 04:50 Maalox Es 30 Ml Unit Dose Administered 04/13/19 04:51 Dose 30 ml .ROUTE .STK-MED ONE Dicyclomine HCl Confirm 04/13/19 10:43 Bentyl 20 Mg Administered 04/13/19 10:44 Dose 20 mg .ROUTE .STK-MED ONE Hydromorphone HCl 1 mg 04/13/19 06:21 04/13/19 06:27 Hydromorphone 1 Mg/Ml Ampule IV 04/13/19 06:22 1 mg STAT ONE Administration Hydromorphone HCl Confirm 04/13/19 06:26 Hydromorphone 1 Mg/Ml Ampule Administered 04/13/19 06:27 Dose 1 mg .ROUTE .STK-MED ONE Hydromorphone HCl Confirm 04/14/19 04:04 Hydromorphone 1 Mg/Ml Ampule Administered 04/14/19 04:05 Dose 1 mg .ROUTE .STK-MED ONE Sodium Chloride 1,000 mls @ 200 mls/hr 04/13/19 02:00 04/13/19 10:14 Sodium Chloride 0.9% 1000 Ml IV 05/13/19 01:59 Infused .Q5H CARLOS A Infusion Levofloxacin/Dextrose 500 mg in 100 mls @ 100 mls/hr 04/13/19 06:30 Levofloxacin 500mg/100ml D5w IV 04/13/19 07:29 ONCALLTOOR CARLOS A Metronidazole 500 mg in 100 mls @ 200 mls/hr 04/13/19 06:22 04/13/19 07:19 Flagyl 500 Mg Ivpb IV 04/13/19 06:51 Infused STAT STA Infusion Metronidazole Confirm 04/13/19 06:26 Flagyl 500 Mg Ivpb Administered 04/13/19 06:27 Dose 500 mg in 100 mls @ ud IV .STK-MED ONE Sodium Chloride Confirm 04/13/19 04:58 Sodium Chloride 0.9% 1000 Ml Administered 04/13/19 04:59 Dose 1,000 mls @ ud .ROUTE .STK-MED ONE Magnesium Sulfate/Dextrose 100 mls @ 200 mls/hr 04/13/19 15:00 04/13/19 16:57 Magnesium 1 Gm / 100 Ml D5w IV 04/13/19 16:29 200 mls/hr Q1H CARLOS A Administration Lidocaine HCl Confirm 04/13/19 04:49 Xylocaine Hcl Viscous * Administered 04/13/19 04:50 Dose 15 ml .ROUTE .STK-MED ONE Magnesium Hydroxide 45 ml 04/13/19 04:47 04/13/19 04:50 Gi Cocktail 45 Ml (Maalox/Lidocaine) PO 04/13/19 04:48 45 ml STAT ONE Administration Morphine Sulfate 2 mg 04/13/19 01:48 04/13/19 01:54 Morphine Sulfate 2 Mg Inj IV 04/13/19 01:49 2 mg STAT ONE Administration Morphine Sulfate Confirm 04/13/19 01:53 Morphine Sulfate 2 Mg Inj Administered 04/13/19 01:54 Dose 2 mg .ROUTE .STK-MED ONE Morphine Sulfate 4 mg 04/13/19 03:40 04/13/19 03:44 Morphine Sulfate 4 Mg Inj IV 04/13/19 03:41 4 mg STAT ONE Administration Morphine Sulfate Confirm 04/13/19 03:41 Morphine Sulfate 4 Mg Inj Administered 04/13/19 03:42 Dose 4 mg .ROUTE .STK-MED ONE Morphine Sulfate 4 mg 04/13/19 10:39 04/13/19 10:45 Morphine Sulfate 4 Mg Inj IV 04/13/19 10:40 4 mg STAT ONE Administration Morphine Sulfate Confirm 04/13/19 10:43 Morphine Sulfate 4 Mg Inj Administered 04/13/19 10:44 Dose 4 mg .ROUTE .STK-MED ONE Morphine Sulfate 4 mg 04/13/19 13:06 04/13/19 13:14 Morphine Sulfate 4 Mg Inj IV 04/13/19 14:00 4 mg 1XONLY CARLOS A Administration Nitroglycerin Confirm 04/13/19 15:42 Nitrostat 0.4 Mg Tablet Administered 04/13/19 15:43 Dose 0.4 mg SL .STK-MED ONE Ondansetron HCl 4 mg 04/13/19 01:48 04/13/19 01:54 Zofran 4 Mg/2 Ml Vial IV 04/13/19 01:49 4 mg STAT ONE Administration Ondansetron HCl Confirm 04/13/19 01:52 Zofran 4 Mg/2 Ml Vial Administered 04/13/19 01:53 Dose 4 mg .ROUTE .STK-MED ONE Ondansetron HCl 4 mg 04/13/19 08:17 04/13/19 08:47 Zofran 4 Mg/2 Ml Vial IV 04/13/19 08:18 4 mg STAT ONE Administration Ondansetron HCl Confirm 04/13/19 08:45 Zofran 4 Mg/2 Ml Vial Administered 04/13/19 08:46 Dose 4 mg .ROUTE .STK-MED ONE Ondansetron HCl 4 mg 04/13/19 13:03 04/13/19 13:18 Zofran 4 Mg/2 Ml Vial IV 04/13/19 13:04 4 mg STAT ONE Administration Intake & Output (Last 24 hours) 04/16/19 04/17/19 04/18/19 04/19/19 11:59 11:59 11:59 11:59 Intake Total 2833 3115 1507 Output Total 3200 350 Balance -367 2765 1507 Orders (Last 24 hours) Category Date Time Status Discharge Routine Discharge 04/18/19 Ordered Discharge/Telephone Order Routine Discharge 04/18/19 Active Patient Care Notes (Last 24 hours) 04/18/19 11:38 Physical Therapy Note by Graciela Navarro PATIENT FITTED TODAY WITH A SOFT CORSET BRACE TO STABILIZE THE L-SPINE TO COUNTER PAIN WITH MOBILIZATION AND TO REINFORCE POSTURAL AWARENESS. DUE TO DIFFICULTY WALKING, PATIENT WAS ADVISED TO USE A ROLLATOR WALKER IN GAIT TO OFF LOAD SPINE IN STANDING. USING AN ASSISTIVE DEVICE SHOULD ENHANCE FUNCTIONAL STANDING AND WALKING TOLERANCE IN ADL'S TO AVOID THE SECONDARY COMPLICATIONS OF IMMOBILITY DUE TO PAIN. PATIENT PERFORMANCE ON HIS FEET MUCH IMPROVED WITH A WALKER. SOURCE OF L1 FX WAS A FALL AT HOME PRIOR TO HOSPITAL ADMISSION. PATIENT HAS MULTIPLE MEDICAL COMORBIDITIES PRE-EXISTING, INCLUDING SIGNIFICANT CARDIOVASCULAR HX. Initialized on 04/18/19 11:38 - END OF NOTE 04/18/19 09:45 Case Management Note by Susanne Mckenna S/W PATIENT REGARDING DC NEEDS AT THIS TIME. HE DENIES ANY NEEDS. HE IS CURIOUS ABOUT GETTING A BACK BRACE. GRACIELA IN PT WAS NOTIFIED AND WILL DISCUSS THIS WITH PATIENT Initialized on 04/18/19 09:45 - END OF NOTE - Vitals & Intake/Output Vital Signs: Vital Signs Temperature 97.9 F 04/18/19 07:49 Pulse Rate 61 04/18/19 07:49 Respiratory Rate 17 04/18/19 07:49 Blood Pressure 149/81 04/18/19 07:49 O2 Sat by Pulse Oximetry 94 L 04/18/19 07:49 Intake & Output: Intake & Output 04/16/19 04/17/19 04/18/19 04/19/19 11:59 11:59 11:59 11:59 Intake Total 2833 3115 1507 Output Total 3200 350 Balance -367 2765 1507 - Lab Result Diagrams: 04/14/19 04:25 04/14/19 04:25 - Procedures and Test Procedures and Tests throughout Hospitalization: Therapy Orders & Screens 04/13/19 15:20 EKG ROUTINE Comment: Diagnosis: colitis, l1 fx 04/14/19 14:17 PT Eval & Treat ( Order) ROUTINE Reason for Eval:: BACK PAIN-FX L4(04/06) Diagnosis: c/o back pain, abdominal pain, nausea for 1-2 days Final Diagnosis/Problem List - Final Discharge Diagnosis/Problem (1) Enteritis due to Norovirus Current Visit: Yes Status: Resolved Code(s): A08.11 - ACUTE GASTROENTEROPATHY DUE TO NORWALK AGENT (2) Chest pain, rule out acute myocardial infarction Current Visit: Yes Status: Resolved Code(s): R07.9 - CHEST PAIN, UNSPECIFIED (3) L1 vertebral fracture Current Visit: Yes Status: Chronic Code(s): S32.019A - UNSP FRACTURE OF FIRST LUMBAR VERTEBRA, INIT FOR CLOS FX (4) Nausea vomiting and diarrhea Current Visit: Yes Status: Resolved Code(s): R11.2 - NAUSEA WITH VOMITING, UNSPECIFIED; R19.7 - DIARRHEA, UNSPECIFIED (5) Back pain Current Visit: Yes Status: Chronic Code(s): M54.9 - DORSALGIA, UNSPECIFIED (6) Hypertension Current Visit: No Status: Chronic Code(s): I10 - ESSENTIAL (PRIMARY) HYPERTENSION - Discharge Discharge Date: 04/18/19 Disposition: Home, Self-Care Condition: Stable Prescriptions: Continue Gabapentin [Neurontin] 800 mg PO BID Magnesium Oxide 400 mg [Mag-Ox 400] 400 mg PO DAILY Loratadine 10 mg [Claritin 10 mg] 10 mg PO DAILY [place]-3 Fatty Acids/Fish Oil [Fish Oil 1,000 mg Capsule] 1,000 mg PO BID Rosuvastatin Calcium [Crestor] 20 mg PO HS Nitroglycerin 0.4 mg Tablet [Nitrostat 0.4 MG Tablet] 0.4 mg SL UD PRN PRN Reason: Chest Pain Pyridoxine HCl 100 mg [Vitamin B-6 (Pyridoxine) 100 MG] 100 mg PO BID Acetaminophen 325 mg [Tylenol 325 mg] 650 mg PO Q4-6HPRN PRN PRN Reason: Pain Ropinirole HCl 0.5 mg [Requip 0.5 MG] 0.5 mg PO HS Levothyroxine Sodium 25 Mcg [Synthroid 25 Mcg] 25 mcg PO DAILY Famotidine 20 mg [Pepcid 20 MG] 20 mg PO BID Sertraline HCl 50 mg [Zoloft 50 mg Tablet] 25 mg PO BID Morphine Sulfate Ir 15 mg [Msir 15 mg] 15 mg PO Q4-6HPRN PRN PRN Reason: Pain Metoprolol Tartrate 50 mg [Lopressor 50 MG] 25 mg PO DAILY Clopidogrel Bisulfate [Clopidogrel] 75 mg PO DAILY lisinopriL [Lisinopril] 20 mg pe PO DAILY Instructions: Norovirus (DC) Additional Instructions: DR SHORE APPOINTMENT AT THE [facility] Follow up with: GAUDENCIO SHORE MD [Primary Care Provider] - 04/25/19 1:30 pm
== END 2019-04-18 12:31 | disposition home or self-care (01) | DRG 392 ==
LOC: ED 01:32 → MED SURG 13:00 → INTOOBSV 13:00 → OBSVTOIN 13:00
PROVIDERS: ADMIT Internal Medicine; ATTEND General Practice
DX: A08.11 Acute gastroenteropathy due to Norwalk agent (principal); S32.019A Unspecified fracture of first lumbar vertebra, initial encounter for closed fracture; R07.9 Chest pain, unspecified; R11.2 Nausea with vomiting, unspecified; M54.9 Dorsalgia, unspecified; I10 Essential (primary) hypertension; R10.9 Unspecified abdominal pain; I25.10 Atherosclerotic heart disease of native coronary artery without angina pectoris; R53.81 Other malaise; Z79.899 Other long term (current) drug therapy; E78.00 Pure hypercholesterolemia, unspecified; I25.2 Old myocardial infarction
CPT/HCPCS: 36000; 36415; 74177; 80048; 80053; 82270; 83605; 83690; 83735; 84484; 85025; 87425; 87507; 87631; 93005; 93268; 96360; 96361; 96365; 96374; 96375; 96376; 97161; 97530; 99285; G0378; J1170; J1650; J1956; J2270; J2405; J2550; J3475; A9270-GY

== ENCOUNTER 2021-05-23 17:17 | Observation (INO) | payer OTHER, MEDICARE ==
[2021-05-23] MEDS ORDERED: TYLENOL 325 MG PO PRN (17:38)
[2021-05-23] MEDS ORDERED: HUMALOG SQ PRN (17:38)
[2021-05-23] MEDS ORDERED: Colace 100 MG PO PRN (17:38)
--- NOTE | 2021-05-23 17:44 | PCM.HP.ADD ---
Addendum to History & Physical - History & Physical Addendum Addendum to History & Physical: This certifies that the History & Physical in the electronic chart reflects the current health status of the patient. If there are changes in the H&P these changes/exceptions are listed as follows.
[2021-05-23] MEDS ORDERED: Sodium Chloride 0.9% 1000 ML 1,000 ML IV SCH (17:45)
[2021-05-23] MEDS ORDERED: Sodium Chloride 0.9% 1000 ML 1,000 ML ONE (18:12)
[2021-05-23 18:44] LABS: Absolute Neutrophil Ct (ANC) 3.35 (1.4-6.9); Basophil (Absolute #) 0.04 (0-0.4); Eosinophil % 7.9 % (0.00-5.0); Eosinophil (Absolute #) 0.47 (0-0.5); Hematocrit 39.6 % (42-50); Hemoglobin 13.4 gm/dl (12.5-18.0); Lymphocyte (Absolute #) 1.42 (1.0-4.6); Lymphocytes % 23.9 % (24.0-44.0); Mean Cell Volume 88.4 fl (78-100); Mean Corpuscular Hemoglobin 29.9 pg (26-32); Mean Corpuscular Hgb Concent. 33.8 g/dl (32-36); Mean Platelet Volume 9.2 fl (7.5-11.0); Monocyte (Absolute #) 0.67 (0.0-1.3); Monocytes % 11.3 % (0.0-12.0); Neutrophil % 56.2 % (36.0-66.0); Platelet Count 182 K/mm3 (150-450); Red Blood Count 4.48 M/mm3 (4.1-5.6); Red Cell Distribution Width 13.6 % (11.5-14.0)
[2021-05-23 19:04] LABS: ALBUMIN 3.9 g/dL (3.5-5.0); ANION GAP 11.6 MEQ/L (5-15); BILIRUBIN,TOTAL 0.7 mg/dL (0.2-1.3); Calcium 9.8 mg/dL (8.4-10.2); Creatinine 1 1.41 mg/dL (0.66-1.25); EST GLOMERULAR FILTRATION RATE 52.4 ML/MIN; Potassium 3.6 mmol/L (3.5-5.1); Total Protein 7.3 g/dL (6.3-8.2)
[2021-05-23 19:59] LABS: Appearance CLEAR (CLEAR); Bacteria RARE /HPF (NEGATIVE); Bilirubin NEGATIVE (NEGATIVE); Blood NEGATIVE Ery/ul (0-5); Glucose NEGATIVE (NEGATIVE); Hyaline Casts 0-2 /LPF (0-2); Ketones NEGATIVE (NEGATIVE); Leukocyte Esterase NEGATIVE (NEGATIVE); Mucus SLIGHT /HPF (NEGATIVE); Nitrite NEGATIVE (NEGATIVE); Protein,Urine Dip NEGATIVE (Negative); RBC 0-2 /HPF (0-2); Specific Gravity 1.008 (1.005-1.025); Urobilinogen NEGATIVE mg/dL (0-1); WBC 0-2 /HPF (0-5)
[2021-05-23] MEDS ORDERED: ROCEPHIN 1 Gm-D5w 50 ml Bag** 1 G/50 ML IVPB IV SCH (22:00)
[2021-05-23] MEDS ORDERED: Nitrostat 0.4 MG Tablet SL PRN (23:30)
[2021-05-23] MEDS: Neurontin 400 MG PO SCH (23:40)
[2021-05-23] MEDS: Pepcid 20 MG PO SCH (23:41)
[2021-05-23] MEDS: ZOLOFT 50 MG TABLET PO SCH (23:41)
[2021-05-23] MEDS ORDERED: Requip 0.5 MG PO SCH (23:45)
[2021-05-23] MEDS ORDERED: ZOCOR 20MG PO SCH (23:45)
[2021-05-23] MEDS: MSIR 15 MG PO PRN (23:45)
--- NOTE | 2021-05-24 07:43 | PCM.NOTE ---
Date and Time: 05/24/21741 Subjective Assessment: doing ok - Review of Systems Constitutional: No Fever, No Chills Eyes: No Symptoms Ears, Nose, & Throat: No Symptoms Respiratory: No Cough, No Short Of Breath Cardiac: No Chest Pain, No Edema, No Syncope Abdominal/Gastrointestinal: No Abdominal Pain, No Nausea, No Vomiting, No Diarrhea Genitourinary Symptoms: No Dysuria Musculoskeletal: No Back Pain, No Neck Pain Skin: No Rash Neurological: No Dizziness, No Focal Weakness, No Sensory Changes Psychological: No Symptoms Endocrine: No Symptoms Hematologic/Lymphatic: No Symptoms Immunological/Allergic: No Symptoms Objective Exam General Appearance: no apparent distress, alert Neurologic Exam: alert, oriented x 3, cooperative, normal mood/affect, nml cerebellar function, sensation nml, No motor deficits Skin Exam: normal color, warm, dry Eye Exam: PERRL, EOMI, eyes nml inspection Ears, Nose, Throat Exam: normal ENT inspection, pharynx normal, moist mucous membranes Neck Exam: normal inspection, non-tender, supple, full range of motion Respiratory Exam: normal breath sounds, lungs clear, No respiratory distress Cardiovascular Exam: regular rate/rhythm, normal heart sounds Gastrointestinal/Abdomen Exam: soft, No tenderness, No mass Extremity Exam: normal inspection, normal range of motion Back Exam: normal inspection, normal range of motion, No CVA tenderness, No vertebral tenderness Male Genitalia Exam: deferred Rectal Exam: deferred OBJECTIVE DATA Vital Signs: Vital Signs - 24 hr Temp Pulse Resp BP Pulse Ox 05/24/21 07:13 91 L 05/24/21 04:00 97.7 F 69 16 108/63 90 L 05/24/21 00:00 97.5 F 74 16 99/63 93 L 05/23/21 19:46 97.3 F 85 17 121/80 93 L 05/23/21 18:46 91 L 05/23/21 17:23 97.1 F 85 16 123/74 90 L Pain Assessment - Last Documented Pain Intensity 0 Intake and Output: Intake & Output 05/21/21 05/22/21 05/23/21 05/24/21 11:59 11:59 11:59 11:59 Intake Total 1203 Output Total 550 Balance 653 Weight 66.5 kg Lab Results: Lab Results-Last 24 Hours 05/23/21 05/23/21 05/23/21 Range/Units 18:32 18:32 18:32 WBC 6.0 (4.0-10.5) K/mm3 RBC 4.48 (4.1-5.6) M/mm3 Hgb 13.4 (12.5-18.0) gm/dl Hct 39.6 L (42-50) % MCV 88.4 (78-100) fl MCH 29.9 (26-32) pg MCHC 33.8 (32-36) g/dl RDW 13.6 (11.5-14.0) % Plt Count 182 (150-450) K/mm3 MPV 9.2 (7.5-11.0) fl Gran % 56.2 (36.0-66.0) % Eos # (Auto) 0.47 (0-0.5) Absolute Lymphs (auto) 1.42 (1.0-4.6) Absolute Monos (auto) 0.67 (0.0-1.3) Lymphocytes % 23.9 L (24.0-44.0) % Monocytes % 11.3 (0.0-12.0) % Eosinophils % 7.9 H (0.00-5.0) % Basophils % 0.7 (0.0-0.4) % Absolute Granulocytes 3.35 (1.4-6.9) Basophils # 0.04 (0-0.4) Sodium 134 L (137-145) mmol/L Potassium 3.6 (3.5-5.1) mmol/L Chloride 96 L (98-107) mmol/L Carbon Dioxide 30 (22-30) mmol/L Anion Gap 11.6 (5-15) MEQ/L BUN 15 (9-20) mg/dL Creatinine 1.41 H (0.66-1.25) mg/dL Estimated GFR 52.4 ML/MIN Glucose 103 (74-106) mg/dL POC Glucometer (74 to 106) mg/dL Hemoglobin A1c (4.5-6.0) % Calcium 9.8 (8.4-10.2) mg/dL Total Bilirubin 0.70 (0.2-1.3) mg/dL AST 58 (17-59) U/L ALT 31 (0-50) U/L Alkaline Phosphatase 141 H (38-126) U/L Troponin I < 0.012 (0.000-0.034) ng/mL NT-Pro-B Natriuret Pep 132 (0-900) pg/mL Serum Total Protein 7.3 (6.3-8.2) g/dL Albumin 3.9 (3.5-5.0) g/dL Urine Color (YELLOW) Urine Appearance (CLEAR) Urine pH (5-6) Ur Specific Marlette (1.005-1.025) Urine Protein (Negative) Urine Ketones (NEGATIVE) Urine Blood (0-5) Aramis/ul Urine Nitrite (NEGATIVE) Urine Bilirubin (NEGATIVE) Urine Urobilinogen (0-1) mg/dL Ur Leukocyte Esterase (NEGATIVE) Urine WBC (Auto) (0-5) /HPF Urine RBC (Auto) (0-2) /HPF U Hyaline Cast (Auto) (0-2) /LPF U Epithel Cells (Auto) (FEW) /HPF Urine Bacteria (Auto) (NEGATIVE) /HPF Urine Mucus (Auto) (NEGATIVE) /HPF Urine Culture Reflexed (NO) Urine Glucose (NEGATIVE) mg/dL 05/23/21 05/23/21 05/23/21 Range/Units 18:32 19:45 20:32 WBC (4.0-10.5) K/mm3 RBC (4.1-5.6) M/mm3 Hgb (12.5-18.0) gm/dl Hct (42-50) % MCV (78-100) fl MCH (26-32) pg MCHC (32-36) g/dl RDW (11.5-14.0) % Plt Count (150-450) K/mm3 MPV (7.5-11.0) fl Gran % (36.0-66.0) % Eos # (Auto) (0-0.5) Absolute Lymphs (auto) (1.0-4.6) Absolute Monos (auto) (0.0-1.3) Lymphocytes % (24.0-44.0) % Monocytes % (0.0-12.0) % Eosinophils % (0.00-5.0) % Basophils % (0.0-0.4) % Absolute Granulocytes (1.4-6.9) Basophils # (0-0.4) Sodium (137-145) mmol/L Potassium (3.5-5.1) mmol/L Chloride (98-107) mmol/L Carbon Dioxide (22-30) mmol/L Anion Gap (5-15) MEQ/L BUN (9-20) mg/dL Creatinine (0.66-1.25) mg/dL Estimated GFR ML/MIN Glucose (74-106) mg/dL POC Glucometer 97 (74 to 106) mg/dL Hemoglobin A1c 5.91 (4.5-6.0) % Calcium (8.4-10.2) mg/dL Total Bilirubin (0.2-1.3) mg/dL AST (17-59) U/L ALT (0-50) U/L Alkaline Phosphatase (38-126) U/L Troponin I (0.000-0.034) ng/mL NT-Pro-B Natriuret Pep (0-900) pg/mL Serum Total Protein (6.3-8.2) g/dL Albumin (3.5-5.0) g/dL Urine Color YELLOW (YELLOW) Urine Appearance CLEAR (CLEAR) Urine pH 5.0 (5-6) Ur Specific Marlette 1.008 (1.005-1.025) Urine Protein NEGATIVE (Negative) Urine Ketones NEGATIVE (NEGATIVE) Urine Blood NEGATIVE (0-5) Aramis/ul Urine Nitrite NEGATIVE (NEGATIVE) Urine Bilirubin NEGATIVE (NEGATIVE) Urine Urobilinogen NEGATIVE (0-1) mg/dL Ur Leukocyte Esterase NEGATIVE (NEGATIVE) Urine WBC (Auto) 0-2 (0-5) /HPF Urine RBC (Auto) 0-2 (0-2) /HPF U Hyaline Cast (Auto) 0-2 (0-2) /LPF U Epithel Cells (Auto) NONE (FEW) /HPF Urine Bacteria (Auto) RARE (NEGATIVE) /HPF Urine Mucus (Auto) SLIGHT (NEGATIVE) /HPF Urine Culture Reflexed NO (NO) Urine Glucose NEGATIVE (NEGATIVE) mg/dL 05/24/21 Range/Units 07:14 WBC (4.0-10.5) K/mm3 RBC (4.1-5.6) M/mm3 Hgb (12.5-18.0) gm/dl Hct (42-50) % MCV (78-100) fl MCH (26-32) pg MCHC (32-36) g/dl RDW (11.5-14.0) % Plt Count (150-450) K/mm3 MPV (7.5-11.0) fl Gran % (36.0-66.0) % Eos # (Auto) (0-0.5) Absolute Lymphs (auto) (1.0-4.6) Absolute Monos (auto) (0.0-1.3) Lymphocytes % (24.0-44.0) % Monocytes % (0.0-12.0) % Eosinophils % (0.00-5.0) % Basophils % (0.0-0.4) % Absolute Granulocytes (1.4-6.9) Basophils # (0-0.4) Sodium (137-145) mmol/L Potassium (3.5-5.1) mmol/L Chloride (98-107) mmol/L Carbon Dioxide (22-30) mmol/L Anion Gap (5-15) MEQ/L BUN (9-20) mg/dL Creatinine (0.66-1.25) mg/dL Estimated GFR ML/MIN Glucose (74-106) mg/dL POC Glucometer 103 (74 to 106) mg/dL Hemoglobin A1c (4.5-6.0) % Calcium (8.4-10.2) mg/dL Total Bilirubin (0.2-1.3) mg/dL AST (17-59) U/L ALT (0-50) U/L Alkaline Phosphatase (38-126) U/L Troponin I (0.000-0.034) ng/mL NT-Pro-B Natriuret Pep (0-900) pg/mL Serum Total Protein (6.3-8.2) g/dL Albumin (3.5-5.0) g/dL Urine Color (YELLOW) Urine Appearance (CLEAR) Urine pH (5-6) Ur Specific Marlette (1.005-1.025) Urine Protein (Negative) Urine Ketones (NEGATIVE) Urine Blood (0-5) Aramis/ul Urine Nitrite (NEGATIVE) Urine Bilirubin (NEGATIVE) Urine Urobilinogen (0-1) mg/dL Ur Leukocyte Esterase (NEGATIVE) Urine WBC (Auto) (0-5) /HPF Urine RBC (Auto) (0-2) /HPF U Hyaline Cast (Auto) (0-2) /LPF U Epithel Cells (Auto) (FEW) /HPF Urine Bacteria (Auto) (NEGATIVE) /HPF Urine Mucus (Auto) (NEGATIVE) /HPF Urine Culture Reflexed (NO) Urine Glucose (NEGATIVE) mg/dL Radiology Exams: Radiology Procedures Category Date Time Status CHEST 2 VIEWS (PA AND LAT) Stat Exams 05/23/21 18:14 Taken Assessment/Plan (1) Pneumonia Current Visit: Yes Status: Acute Qualifiers: Pneumonia type: due to unspecified organism Laterality: bilateral Lung location: lower lobe of lung Qualified Code(s): J18.9 - Pneumonia, unspecified organism Assessment & Plan: Chief Complaint Diagnosis Pneumonia , Weakness, Short of breath Allergies Allergy/AdvReac Type Severity Reaction Status Date / Time Iodinated Contrast Media Allergy Verified 05/23/21 17:35 Vital Signs (Last 24 hours) Temp Pulse Resp BP Pulse Ox 05/24/21 07:13 91 L 05/24/21 04:00 97.7 F 69 16 108/63 90 L 05/24/21 00:00 97.5 F 74 16 99/63 93 L 05/23/21 19:46 97.3 F 85 17 121/80 93 L 05/23/21 18:46 91 L 05/23/21 17:23 97.1 F 85 16 123/74 90 L Current Medications Generic Name Dose Route Start Last Admin Trade Name Freq PRN Reason Stop Dose Admin Acetaminophen 325 mg 05/23/21 17:38 Acetaminophen 325 Mg Tablet PO 06/22/21 17:37 Q4H PRN PRN PAIN, FEVER, HEADACHE Docusate Sodium 100 mg 05/23/21 17:38 Docusate Sodium 100 Mg Capsule PO 06/22/21 17:37 BIDPRN PRN CONSTIPATION Famotidine 20 mg 05/23/21 23:45 05/23/21 23:41 Famotidine 20 Mg Tablet PO 06/22/21 23:44 20 mg BID CARLOS A Administration Gabapentin 800 mg 05/23/21 23:45 05/23/21 23:40 Gabapentin 400 Mg Capsule PO 06/22/21 23:44 800 mg BID CARLOS A Administration Sodium Chloride 1,000 mls @ 50 mls/hr 05/23/21 17:45 05/23/21 18:28 Sodium Chloride 0.9% 1000 Ml IV 06/22/21 17:44 50 mls/hr .Q20H CARLOS A Administration Ceftriaxone Sodium/Dextrose 1 g in 50 mls @ 100 mls/hr 05/23/21 22:00 05/23/21 21:24 Rocephin 1 Gm-D5w 50 Ml Bag IV 05/26/21 21:59 100 mls/hr Q24H10 CARLOS A Administration Insulin Human Lispro 0 unit 05/23/21 17:38 Insulin Lispro 1 Unit SQ 06/22/21 17:37 UD PRN HYPERGLYCEMIA Morphine Sulfate 15 mg 05/23/21 23:29 05/23/21 23:45 Morphine Sulfate 15 Mg Tablet Immediate Release PO 05/28/21 23:28 15 mg Q4HPRN PRN Administration PAIN Nitroglycerin 0.4 mg 05/23/21 23:30 Nitroglycerin 0.4 Mg Tablet Bottle SL 06/22/21 23:29 Q5MIN PRN MR X 3 PRN CHEST PAIN Pyridoxine HCl 100 mg 05/23/21 23:45 Pyridoxine Hcl 100 Mg Tablet PO 06/22/21 23:44 BID CARLOS A Ropinirole HCl 0.5 mg 05/23/21 23:45 05/23/21 23:42 Ropinirole Hcl 0.5 Mg Tablet PO 06/22/21 23:44 0.5 mg HS CARLOS A Administration Sertraline HCl 25 mg 05/23/21 23:45 05/23/21 23:41 Sertraline Hcl 50 Mg Tab PO 06/22/21 23:44 25 mg BID CARLOS A Administration Simvastatin 40 mg 05/23/21 23:45 05/23/21 23:42 Simvastatin 20 Mg Tablet PO 06/22/21 23:44 40 mg HS CARLOS A Administration Discontinued Medications Generic Name Dose Route Start Last Admin Trade Name Richardq PRN Reason Stop Dose Admin Sodium Chloride Confirm 05/23/21 18:12 Sodium Chloride 0.9% 1000 Ml Administered 05/23/21 18:13 Dose 1,000 mls @ ud .ROUTE .STK-MED ONE Intake & Output (Last 24 hours) 05/21/21 05/22/21 05/23/21 05/24/21 11:59 11:59 11:59 11:59 Intake Total 1203 Output Total 550 Balance 653 Weight 66.5 kg Microbiology Results (Last 24 hours) 05/23/21 20:57 Neck - Posterior Wound Culture - Pending 05/23/21 19:45 Clean Catch Midstream Urine Culture - Pending 05/23/21 18:34 Blood Blood Culture Gram Stain - Pending 05/23/21 18:34 Blood Blood Culture - Pending 05/23/21 18:32 Blood Blood Culture Gram Stain - Pending 05/23/21 18:32 Blood Blood Culture - Pending Laboratory Results (Last 24 hours) 05/24/21 05/23/21 05/23/21 07:14 20:32 19:45 WBC RBC Hgb Hct MCV MCH MCHC RDW Plt Count MPV Gran % Eos # (Auto) Absolute Lymphs (auto) Absolute Monos (auto) Lymphocytes % Monocytes % Eosinophils % Basophils % Absolute Granulocytes Basophils # Sodium Potassium Chloride Carbon Dioxide Anion Gap BUN Creatinine Estimated GFR Glucose POC Glucometer 103 97 Hemoglobin A1c Calcium Total Bilirubin AST ALT Alkaline Phosphatase Troponin I NT-Pro-B Natriuret Pep Serum Total Protein Albumin Urine Color YELLOW Urine Appearance CLEAR Urine pH 5.0 Ur Specific Marlette 1.008 Urine Protein NEGATIVE Urine Ketones NEGATIVE Urine Blood NEGATIVE Urine Nitrite NEGATIVE Urine Bilirubin NEGATIVE Urine Urobilinogen NEGATIVE Ur Leukocyte Esterase NEGATIVE Urine WBC (Auto) 0-2 Urine RBC (Auto) 0-2 U Hyaline Cast (Auto) 0-2 U Epithel Cells (Auto) NONE Urine Bacteria (Auto) RARE Urine Mucus (Auto) SLIGHT Urine Culture Reflexed NO Urine Glucose NEGATIVE 05/23/21 05/23/21 05/23/21 18:32 18:32 18:32 WBC RBC Hgb Hct MCV MCH MCHC RDW Plt Count MPV Gran % Eos # (Auto) Absolute Lymphs (auto) Absolute Monos (auto) Lymphocytes % Monocytes % Eosinophils % Basophils % Absolute Granulocytes Basophils # Sodium 134 L Potassium 3.6 Chloride 96 L Carbon Dioxide 30 Anion Gap 11.6 BUN 15 Creatinine 1.41 H Estimated GFR 52.4 Glucose 103 POC Glucometer Hemoglobin A1c 5.91 Calcium 9.8 Total Bilirubin 0.70 AST 58 ALT 31 Alkaline Phosphatase 141 H Troponin I < 0.012 NT-Pro-B Natriuret Pep 132 Serum Total Protein 7.3 Albumin 3.9 Urine Color Urine Appearance Urine pH Ur Specific Marlette Urine Protein Urine Ketones Urine Blood Urine Nitrite Urine Bilirubin Urine Urobilinogen Ur Leukocyte Esterase Urine WBC (Auto) Urine RBC (Auto) U Hyaline Cast (Auto) U Epithel Cells (Auto) Urine Bacteria (Auto) Urine Mucus (Auto) Urine Culture Reflexed Urine Glucose 05/23/21 18:32 WBC 6.0 RBC 4.48 Hgb 13.4 Hct 39.6 L MCV 88.4 MCH 29.9 MCHC 33.8 RDW 13.6 Plt Count 182 MPV 9.2 Gran % 56.2 Eos # (Auto) 0.47 Absolute Lymphs (auto) 1.42 Absolute Monos (auto) 0.67 Lymphocytes % 23.9 L Monocytes % 11.3 Eosinophils % 7.9 H Basophils % 0.7 Absolute Granulocytes 3.35 Basophils # 0.04 Sodium Potassium Chloride Carbon Dioxide Anion Gap BUN Creatinine Estimated GFR Glucose POC Glucometer Hemoglobin A1c Calcium Total Bilirubin AST ALT Alkaline Phosphatase Troponin I NT-Pro-B Natriuret Pep Serum Total Protein Albumin Urine Color Urine Appearance Urine pH Ur Specific Marlette Urine Protein Urine Ketones Urine Blood Urine Nitrite Urine Bilirubin Urine Urobilinogen Ur Leukocyte Esterase Urine WBC (Auto) Urine RBC (Auto) U Hyaline Cast (Auto) U Epithel Cells (Auto) Urine Bacteria (Auto) Urine Mucus (Auto) Urine Culture Reflexed Urine Glucose Orders (Last 24 hours) Category Date Time Status Up Ad Lizette TOLERATED Activity 05/23/21 17:40 Active POCT Glucose Check ACHS Care 05/23/21 17:[address] in Observation ROUTINE Care 05/23/21 17:38 Active Telemetry Q12H Care 05/23/21 17:39 Active Cardio-Pulmonary Rehab .as ordered Cons 05/23/21 17:57 Active Editor Managing Newspaper/Discharge Plan ROUTINE Cons 05/23/21 17:57 Active Low Sodium (1.5-2gram Sodium) Diet 05/23/21 Dinner Active Nutritional Admission Screen ONCE Diet 05/23/21 17:57 Active CHEST 2 VIEWS (PA AND LAT) Stat Exams 05/23/21 18:14 Taken BLOOD CULTURE Stat Lab 05/23/21 18:34 Received CBC W DIFF Stat Lab 05/23/21 18:32 Completed CMP Stat Lab 05/23/21 18:32 Completed CULTURE,URINE Stat Lab 05/23/21 19:45 Received CULTURE,WOUND Stat Lab 05/23/21 20:57 Received HEMOGLOBIN A1C Urgent Lab 05/23/21 18:32 Completed NT PRO BNP Stat Lab 05/23/21 18:32 Completed POCT GLUCOSE Stat Lab 05/23/21 20:32 Completed POCT GLUCOSE Stat Lab 05/24/21 07:14 Completed TROPONIN Stat Lab 05/23/21 18:32 Completed UA W/RFX UR CULTURE Stat Lab 05/23/21 19:45 Completed Acetaminophen 325 mg [Tylenol 325 mg] Med 05/23/21 17:38 Active 325 mg PO Q4H PRN PRN Ceftriaxone 1 GM/50 ML PREMIX* [ROCEPHIN 1 Gm-D5w 50 ml Med 05/23/21 22:00 Active Bag] 1 g in 50 ml IV Q24H10 Docusate Sodium 100 mg [Colace 100 MG] Med 05/23/21 17:38 Active 100 mg PO BIDPRN PRN Famotidine 20 mg [Pepcid 20 MG] Med 05/23/21 23:45 Active 20 mg PO BID Gabapentin 400 mg [Neurontin 400 MG] Med 05/23/21 23:45 Active 800 mg PO BID Insulin Lispro [Humalog] Med 05/23/21 17:38 Active See Dose Instructions SQ UD PRN Morphine Sulfate Ir 15 mg [Msir 15 mg] Med 05/23/21 23:29 Active 15 mg PO Q4HPRN PRN NaCl 0.9% 1000 ml [Sodium Chloride 0.9% 1000 ML] 1,000 Med 05/23/21 18:12 Discontinued ml .ROUTE UD NaCl 0.9% 1000 ml [Sodium Chloride 0.9% 1000 ML] 1,000 Med 05/23/21 17:45 Active ml IV 50 mls/hr Nitroglycerin 0.4 mg Tablet [Nitrostat 0.4 MG Tablet Med 05/23/21 23:30 Active ] 0.4 mg SL Q5MIN PRN MR X 3 PRN Pyridoxine HCl 100 mg [Vitamin B-6 (Pyridoxine) 100 Med 05/23/21 23:45 Active MG] 100 mg PO BID Ropinirole HCl 0.5 mg [Requip 0.5 MG] Med 05/23/21 23:45 Active 0.5 mg PO HS Sertraline HCl 50 mg [Zoloft 50 mg Tablet] Med 05/23/21 23:45 Active 25 mg PO BID Simvastatin 20Mg [Zocor 20Mg] Med 05/23/21 23:45 Active 40 mg PO HS EKG STAT RT 05/23/21 17:38 Completed Oxygen Nasal Cannula 2 lpm RT 05/23/21 17:38 Active Pulse Oximetry .spot check RT 05/23/21 18:46 Active Patient Care Notes (Last 24 hours) 05/23/21 20:25 Nursing Note by Shalini Campbell This nurse called Dr Ndiaye with lab results, urine results and to address home medications, Dr ndiaye made aware that pt stated she is unaware if pt takes lisinopril or lopresser and that she had been holding the BP med for 1 week due to low BPs, Dr Ndiaye orders BOTH medications be restarted at this time due to pt being in heart failure, this nurse repeated this back to Dr Ndiaye and asked reassurance this is what he wanted ans he stated it is. This nurse also alerted Dr Ndiaye that the pt is taking plavix and he orders pt to continue this med due to urine negative for blood. CXR results also read to Dr. Ndiaye and he stats that the pt is developing Pneumonia and orders to start him on Rocephin 1 gram IV daily with a possible D/C tomorrow Initialized on 05/23/21 20:25 - END OF NOTE Code(s): J18.9 - PNEUMONIA, UNSPECIFIED ORGANISM
--- NOTE | 2021-05-24 08:40 | XRAY ---
Indication: Weakness and short of breath 3 weeks. Comparison: July 24, 2016. PA/lateral chest again demonstrates COPD with new mild diffuse bilateral hazy interstitial alveolar opacities without consolidation/large effusion. 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 Bony thorax intact again with osteopenia and degenerative changes.
[2021-05-24] MEDS: Pepcid 20 MG PO SCH (09:26)
[2021-05-24] MEDS: ZOLOFT 50 MG TABLET PO SCH (09:26)
[2021-05-24] MEDS: Vitamin B-6 (Pyridoxine) 100 MG PO SCH ×2 (09:26→09:27)
[2021-05-24] MEDS: Neurontin 400 MG PO SCH (09:27)
[2021-05-24] MEDS: MSIR 15 MG PO PRN (09:30)
[2021-05-24 12:46] VITALS: BP 119/64; PULSE 66; O2SAT 94
[2021-05-24] MEDS ORDERED: ROCEPHIN 1 Gm-D5w 50 ml Bag** 1 G/50 ML IVPB IV SCH (22:00)
--- NOTE | 2021-05-26 19:59 | PCM.SSS ---
History of Present Illness - Chief Complaint Chief Complaint: Pneumonia , Weakness, Short of breath History of Present Illness: Mr.NORRIS TYLER is a 75 year old male. came with weakness and dizziness for 1 week - Review of Systems Constitutional: Fatigue, Lethargy, Weakness, No Fever, No Chills Eyes: No Symptoms Ears, Nose, & Throat: No Symptoms Respiratory: Orthopnea, No Cough, No Short Of Breath Cardiac: No Chest Pain, No Edema, No Syncope Abdominal/Gastrointestinal: No Abdominal Pain, No Nausea, No Vomiting, No Diarrhea Genitourinary Symptoms: No Dysuria Musculoskeletal: No Back Pain, No Neck Pain Skin: No Rash Neurological: Dizziness, Headache, No Focal Weakness, No Sensory Changes Psychological: No Symptoms Endocrine: No Symptoms Hematologic/Lymphatic: No Symptoms Immunological/Allergic: No Symptoms Medications & Allergies Home Medications: Home Medication List Acetaminophen 325 mg [Tylenol 325 mg] 650 mg PO Q4-6HPRN PRN 08/27/15 [History Confirmed 05/23/21] Famotidine 20 mg [Pepcid 20 MG] 20 mg PO BID 08/27/15 [History Confirmed 05/23/21] Gabapentin [Neurontin] 800 mg PO BID 08/27/15 [History Confirmed 05/23/21] Levothyroxine Sodium 25 Mcg [Synthroid 25 Mcg] 25 mcg PO DAILY 08/27/15 [History Confirmed 05/23/21] Loratadine 10 mg [Claritin 10 mg] 10 mg PO DAILY 08/27/15 [History Confirmed 05/23/21] Nitroglycerin 0.4 mg Tablet [Nitrostat 0.4 MG Tablet] 0.4 mg SL UD PRN 08/27/15 [History Confirmed 05/23/21] [place]-3 Fatty Acids/Fish Oil [Fish Oil 1,000 mg Capsule] 1,000 mg PO BID 08/27/15 [History Confirmed 05/23/21] Pyridoxine HCl 100 mg [Vitamin B-6 (Pyridoxine) 100 MG] 100 mg PO BID 08/27/15 [History Confirmed 05/23/21] Ropinirole HCl 0.5 mg [Requip 0.5 MG] 0.5 mg PO HS 08/27/15 [History Confirmed 05/23/21] Rosuvastatin Calcium [Crestor] 20 mg PO HS 08/27/15 [History Confirmed 05/23/21] Sertraline HCl 50 mg [Zoloft 50 mg Tablet] 25 mg PO BID 08/27/15 [History Confirmed 05/23/21] Clopidogrel Bisulfate [Clopidogrel] 75 mg PO DAILY 05/26/17 [History Confirmed 05/23/21] Morphine Sulfate Ir 15 mg [Msir 15 mg] 15 mg PO Q4-6HPRN PRN 05/26/17 [History Confirmed 05/23/21] Cefuroxime Axetil 500 mg [Ceftin 500 mg] 500 mg PO BID 7 Days #14 tablet 05/24/21 [Rx] Lisinopril 10 mg [Zestril 10 MG] 10 mg PO DAILY 30 Days #30 tablet 05/24/21 [Rx] Metoprolol Tartrate 50 mg [Lopressor 50 MG] 25 mg PO HS #0 05/24/21 [Rx Confirmed 05/23/21] Allergies/Adverse Reactions: Allergies Allergy/AdvReac Type Severity Reaction Status Date / Time Iodinated Contrast Media Allergy Verified 05/23/21 17:35 - Past Medical History Past Medical History: Yes Neurological History: No Pertinent History ENT History: No Pertinent History Cardiac History: Angina, High Cholesterol, Hypertension, Myocardial Infarction ([place]) Respiratory History: No Pertinent History Endocrine Medical History: Hypothyroidism Musculoskelatal History: Arthritis, Fibromyalgia, Osteoarthritis GI Medical History: GERD History: No Pertinent History Pyscho-Social History: Depression Male Reproductive Disorders: No Pertinent History Comment: 6 MIS - Past Surgical History Past Surgical History: Yes Neuro Surgical History: No Pertinent History Cardiac History: CABG, Pacemaker Respiratory Surgery: No Pertinent History GI Surgical History: Cholecystectomy Genitourinary Surgical Hx: No Pertinent History Musculskeletal Surgical Hx: No Pertinent History Male Surgical History: No Pertinent History - Social History Smoking Status: Never smoker Exposure to second hand smoke: No Alcohol: None Drug Use: none - Physical Exam General Appearance: no apparent distress, alert Neurologic Exam: alert, oriented x 3, cooperative, normal mood/affect, nml cerebellar function, nml station & gait, sensation nml, No motor deficits Eye Exam: PERRL/EOMI, eyes nml inspection Ears, Nose, Throat Exam: normal ENT inspection, TMs normal, pharynx normal, moist mucous membranes Neck Exam: normal inspection, non-tender, supple, full range of motion Respiratory Exam: diminished breath sounds, No respiratory distress Cardiovascular Exam: regular rate/rhythm, normal heart sounds, normal peripheral pulses Gastrointestinal/Abdomen Exam: soft, normal bowel sounds, No tenderness, No mass Back Exam: normal inspection, normal range of motion, No CVA tenderness, No vertebral tenderness Extremity Exam: normal inspection, normal range of motion, pelvis stable Skin Exam: normal color, warm, dry, No rash Lymphatic Exam: No adenopathy Results - Labs Lab/Micro Results: Microbiology 05/23/21 19:45 Urine Culture - Final Clean Catch Midstream NO GROWTH 05/23/21 20:57 Wound Culture - Preliminary Neck - Posterior ORGANISMS ISOLATED ARE CONSISTENT WITH NORMAL SKIN JOSELUIS LIGHT GROWTH, NO PREDOMINANT ORGANISM 05/23/21 18:34 Blood Culture - Preliminary Blood NO GROWTH TO DATE 05/23/21 18:32 Blood Culture - Preliminary Blood NO GROWTH TO DATE Assessment/Plan (1) Pneumonia Status: Acute Qualifiers: Pneumonia type: due to unspecified organism Laterality: bilateral Lung location: lower lobe of lung Qualified Code(s): J18.9 - Pneumonia, unspecified organism Code(s): J18.9 - PNEUMONIA, UNSPECIFIED ORGANISM Hospital Summary - Hospital Course Hospital Course: Chief Complaint Diagnosis Pneumonia , Weakness, Short of breath Allergies Allergy/AdvReac Type Severity Reaction Status Date / Time Iodinated Contrast Media Allergy Verified 05/23/21 17:35 Home Medications Medication Instructions Recorded Confirmed Last Taken Type Cefuroxime Axetil 500 mg [Ceftin 500 mg PO BID 7 Days #14 tablet 05/24/21 Unknown Rx 500 mg] Lisinopril 10 mg [Zestril 10 10 mg PO DAILY 30 Days #30 tablet 05/24/21 Unknown Rx MG] Metoprolol Tartrate 50 mg 25 mg PO HS #0 05/24/21 05/23/21 Unknown Rx [Lopressor 50 MG] Current Medications Discontinued Medications Generic Name Dose Route Start Last Admin Trade Name Freq PRN Reason Stop Dose Admin Acetaminophen 325 mg 05/23/21 17:38 Acetaminophen 325 Mg Tablet PO 06/22/21 17:37 Q4H PRN PRN PAIN, FEVER, HEADACHE Docusate Sodium 100 mg 05/23/21 17:38 Docusate Sodium 100 Mg Capsule PO 06/22/21 17:37 BIDPRN PRN CONSTIPATION Famotidine 20 mg 05/23/21 23:45 05/24/21 09:26 Famotidine 20 Mg Tablet PO 06/22/21 23:44 20 mg BID CARLOS A Administration Gabapentin 800 mg 05/23/21 23:45 05/24/21 09:27 Gabapentin 400 Mg Capsule PO 06/22/21 23:44 800 mg BID CARLOS A Administration Sodium Chloride 1,000 mls @ 50 mls/hr 05/23/21 17:45 05/23/21 18:28 Sodium Chloride 0.9% 1000 Ml IV 06/22/21 17:44 50 mls/hr .Q20H CARLOS A Administration Sodium Chloride Confirm 05/23/21 18:12 Sodium Chloride 0.9% 1000 Ml Administered 05/23/21 18:13 Dose 1,000 mls @ ud .ROUTE .STK-MED ONE Ceftriaxone Sodium/Dextrose 1 g in 50 mls @ 100 mls/hr 05/23/21 22:00 05/23/21 21:24 Rocephin 1 Gm-D5w 50 Ml Bag IV 05/26/21 21:59 100 mls/hr Q24H10 CARLOS A Administration Ceftriaxone Sodium/Dextrose 1 g in 50 mls @ 100 mls/hr 05/24/21 22:00 Rocephin 1 Gm-D5w 50 Ml Bag IV 05/26/21 21:59 HS [facility] Insulin Human Lispro 0 unit 05/23/21 17:38 Insulin Lispro 1 Unit SQ 06/22/21 17:37 UD PRN HYPERGLYCEMIA Morphine Sulfate 15 mg 05/23/21 23:29 05/24/21 09:30 Morphine Sulfate 15 Mg Tablet Immediate Release PO 05/28/21 23:28 15 mg Q4HPRN PRN Administration PAIN Nitroglycerin 0.4 mg 05/23/21 23:30 Nitroglycerin 0.4 Mg Tablet Bottle SL 06/22/21 23:29 Q5MIN PRN MR X 3 PRN CHEST PAIN Pyridoxine HCl 100 mg 05/23/21 23:45 05/24/21 09:27 Pyridoxine Hcl 100 Mg Tablet PO 06/22/21 23:44 100 mg BID CARLOS A Administration Ropinirole HCl 0.5 mg 05/23/21 23:45 05/23/21 23:42 Ropinirole Hcl 0.5 Mg Tablet PO 06/22/21 23:44 0.5 mg HS CARLOS A Administration Sertraline HCl 25 mg 05/23/21 23:45 05/24/21 09:26 Sertraline Hcl 50 Mg Tab PO 06/22/21 23:44 25 mg BID CARLOS A Administration Simvastatin 40 mg 05/23/21 23:45 05/23/21 23:42 Simvastatin 20 Mg Tablet PO 06/22/21 23:44 40 mg HS CARLOS A Administration Intake & Output (Last 24 hours) 05/24/21 05/25/21 05/26/21 05/27/21 11:59 11:59 11:59 11:59 Intake Total 1683 240 Output Total 850 Balance 833 240 Weight 66.5 kg - Vitals & Intake/Output Vital Signs: Vital Signs Temperature 97.8 F 05/24/21 12:00 Pulse Rate 66 05/24/21 12:00 Respiratory Rate 18 05/24/21 12:00 Blood Pressure 119/64 05/24/21 12:00 O2 Sat by Pulse Oximetry 94 L 05/24/21 12:00 Intake & Output: Intake & Output 05/24/21 05/25/21 05/26/21 05/27/21 11:59 11:59 11:59 11:59 Intake Total 1683 240 Output Total 850 Balance 833 240 Weight 66.5 kg - Lab Result Diagrams: 05/23/21 18:32 05/23/21 18:32 Micro Results-Entire Visit: Microbiology 05/23/21 19:45 Urine Culture - Final Clean Catch Midstream NO GROWTH 05/23/21 20:57 Wound Culture - Preliminary Neck - Posterior ORGANISMS ISOLATED ARE CONSISTENT WITH NORMAL SKIN JOSELUIS LIGHT GROWTH, NO PREDOMINANT ORGANISM 05/23/21 18:34 Blood Culture - Preliminary Blood NO GROWTH TO DATE 05/23/21 18:32 Blood Culture - Preliminary Blood NO GROWTH TO DATE - Procedures and Test Procedures and Tests throughout Hospitalization: Therapy Orders & Screens 05/23/21 17:38 EKG STAT Comment: Oxygen Nasal Cannula 2 lpm Comment: - Discharge Discharge Date: 05/24/21 Disposition: Home, Self-Care Condition: Stable Prescriptions: New Lisinopril 10 mg [Zestril 10 MG] 10 mg PO DAILY 30 Days #30 tablet Cefuroxime Axetil 500 mg [Ceftin 500 mg] 500 mg PO BID 7 Days #14 tablet Continue Gabapentin [Neurontin] 800 mg PO BID Loratadine 10 mg [Claritin 10 mg] 10 mg PO DAILY [place]-3 Fatty Acids/Fish Oil [Fish Oil 1,000 mg Capsule] 1,000 mg PO BID Rosuvastatin Calcium [Crestor] 20 mg PO HS Nitroglycerin 0.4 mg Tablet [Nitrostat 0.4 MG Tablet] 0.4 mg SL UD PRN PRN Reason: Chest Pain Pyridoxine HCl 100 mg [Vitamin B-6 (Pyridoxine) 100 MG] 100 mg PO BID Acetaminophen 325 mg [Tylenol 325 mg] 650 mg PO Q4-6HPRN PRN PRN Reason: Pain Ropinirole HCl 0.5 mg [Requip 0.5 MG] 0.5 mg PO HS Levothyroxine Sodium 25 Mcg [Synthroid 25 Mcg] 25 mcg PO DAILY Famotidine 20 mg [Pepcid 20 MG] 20 mg PO BID Sertraline HCl 50 mg [Zoloft 50 mg Tablet] 25 mg PO BID Morphine Sulfate Ir 15 mg [Msir 15 mg] 15 mg PO Q4-6HPRN PRN PRN Reason: Pain Clopidogrel Bisulfate [Clopidogrel] 75 mg PO DAILY Changed Metoprolol Tartrate 50 mg [Lopressor 50 MG] 25 mg PO HS #0 Discontinued lisinopriL [Lisinopril] 20 mg PO DAILY Instructions: Pneumonia, Adult (DC) Follow up with: GAUDENCIO SHORE MD [Primary Care Provider] - 05/28/21 1:45 pm Forms: Discharge Instructions
== END 2021-05-24 14:00 | disposition home or self-care (01) ==
LOC: MED SURG 17:17
PROVIDERS: ADMIT General Practice; ATTEND General Practice
DX: J18.9 Pneumonia, unspecified organism (principal); R53.1 Weakness; R42 Dizziness and giddiness; E78.00 Pure hypercholesterolemia, unspecified; I10 Essential (primary) hypertension; I25.2 Old myocardial infarction; Z79.899 Other long term (current) drug therapy; Z79.01 Long term (current) use of anticoagulants
CPT/HCPCS: 36415; 71046; 80053; 81001; 82947; 83036; 83880; 84484; 85025; 87040; 87070; 87086; 93005; 93268; 94760; J0696; A9270-GY; G0378

== ENCOUNTER 2021-12-09 16:37 | Emergency (ER) | payer MEDICARE ==
--- NOTE | 2021-12-09 17:34 | ERPHSYRPT ---
- History of Present Illness Time Seen by Provider: 12/09/21 17:34 Source: patient Allergies/Adverse Reactions: Iodinated Contrast Media Allergy (Verified 05/23/21 17:35) Home Medications: Famotidine 20 mg [Pepcid 20 MG] 20 mg PO BID 08/27/15 [History] Gabapentin [Neurontin] 800 mg PO BID 08/27/15 [History] Levothyroxine Sodium 25 Mcg [Synthroid 25 Mcg] 25 mcg PO DAILY 08/27/15 [History] Loratadine 10 mg [Claritin 10 mg] 10 mg PO DAILY 08/27/15 [History] Nitroglycerin 0.4 mg Tablet [Nitrostat 0.4 MG Tablet] 0.4 mg SL UD PRN 08/27/15 [History] [place]-3 Fatty Acids/Fish Oil [Fish Oil 1,000 mg Capsule] 1,000 mg PO BID 08/27/15 [History] Pyridoxine HCl 100 mg [Vitamin B-6 (Pyridoxine) 100 MG] 100 mg PO BID 08/27/15 [History] Ropinirole HCl 0.5 mg [Requip 0.5 MG] 0.5 mg PO HS 08/27/15 [History] Rosuvastatin Calcium [Crestor] 20 mg PO HS 08/27/15 [History] Sertraline HCl 50 mg [Zoloft 50 mg Tablet] 25 mg PO BID 08/27/15 [History] Clopidogrel Bisulfate [Clopidogrel] 75 mg PO DAILY 05/26/17 [History] Morphine Sulfate Ir 15 mg [Msir 15 mg] 15 mg PO Q4-6HPRN PRN 05/26/17 [History] Hx Tetanus, Diphtheria Vaccination/Date Given: Yes Hx Influenza Vaccination/Date Given: Yes Hx Pneumococcal Vaccination/Date Given: Yes Travel Risk - Vaccine Status Have you recieved a Covid-19 vaccination: Yes [employer]: Pfizer - Vaccination Dates Date of 2cond Vaccination (if applicable): 07/23/20 - Past Medical History Pertinent Past Medical History: Yes Neurological History: No Pertinent History ENT History: No Pertinent History Cardiac History: Angina, High Cholesterol, Hypertension, Myocardial Infarction ([place]) Respiratory History: No Pertinent History Endocrine Medical History: Hypothyroidism Musculoskeletal History: Arthritis, Fibromyalgia, Osteoarthritis GI Medical History: GERD History: No Pertinent History Psycho-Social History: Depression Male Reproductive Disorders: No Pertinent History Other Medical History: 6 MIS - Past Surgical History Past Surgical History: Yes Neuro Surgical History: No Pertinent History Cardiac: CABG, Pacemaker Respiratory: No Pertinent History Gastrointestinal: Cholecystectomy Genitourinary: No Pertinent History Musculoskeletal: No Pertinent History Male Surgical History: No Pertinent History - Social History Smoking Status: Never smoker Exposure to second hand smoke: No Drug Use: none Patient Lives Alone: No - Nursing Vital Signs Nursing Vital Signs: Initial Vital Signs Temperature 98.0 F 12/09/21 17:31 Pulse Rate 68 12/09/21 17:31 Respiratory Rate 20 12/09/21 17:31 Blood Pressure 109/68 12/09/21 17:31 O2 Sat by Pulse Oximetry 95 12/09/21 17:31 Pain Scale Pain Intensity [Lower Back] 9 Pain Intensity 6 - Departure Referrals: GAUDENCIO SHORE MD [Primary Care Provider] - Follow up/PCP as directed
[2021-12-09 18:33] VITALS: BP 100/60; PULSE 60; O2SAT 97
== END 2021-12-09 19:15 | disposition left against medical advice (07) ==
LOC: ED 16:37
DX: M54.9 Dorsalgia, unspecified (principal)
CPT/HCPCS: 99281; G0463

== ENCOUNTER 2022-03-12 09:41 | Day surgery (SDC) | payer MEDICARE ==
[2022-03-12] MEDS ORDERED: Xylocaine 1% Vial 30 ML PF IJ ONE (09:42)
[2022-03-12] MEDS ORDERED: BUPIVACAINE 0.5% VIAL IJ ONE (09:42)
[2022-03-12] MEDS ORDERED: Depo-Medrol 40 MG/ML IM ONE (09:42)
--- NOTE | 2022-03-12 19:54 | XRAY ---
Indication: Right shoulder and subacromial bursa injection. Intraoperative fluoroscopy provided for 21 seconds. 2 digital spot image submitted for interpretation demonstrates needle tip projecting over the right glenohumeral joint superiorly. Second needle tip subacromial with small amount of contrast injected for needle tip placement. Correlate with intraoperative findings/report.
--- NOTE | 2022-03-12 20:02 | XRAY ---
21 seconds of fluoroscopy was used in surgery for a right shoulder intra-articular and subacromial injections.
== END 2022-03-12 11:45 | disposition home or self-care (01) ==
LOC: SDC-PAIN 09:41
PROVIDERS: ATTEND Psychiatry & Neurology Pain Medicine
DX: M19.011 Primary osteoarthritis, right shoulder (principal); M75.51 Bursitis of right shoulder; Z79.899 Other long term (current) drug therapy
CPT/HCPCS: 20610; 73030; 77002; J1030; J2001; Q9966

== ENCOUNTER 2023-11-30 12:02 | Emergency (ER) | payer MEDICARE ==
--- NOTE | 2023-11-30 12:12 | ERPHSYRPT ---
- History of Present Illness Time Seen by Provider: 11/30/23 12:11 Source: patient, family Exam Limitations: no limitations Physician History: This is a 78-year-old white male patient who was brought into the emergency department by his spouse for painful right wrist with associated redness, warmth and swelling. Approximately 3 weeks ago patient had an acute flareup of gout in his left hand and wrist. Patient has not had any injury to the right hand or wrist. Patient does see a pain specialist, Dr. Lopes. Patient's primary care provider is Dr. Shore. He also sees sports editor Dr. Hyman. Patient has a history of frequent falls but he does not recall falling onto the right hand or wrist recently. Patient has a history of hyperlipidemia, restless leg syndrome, coronary disease, hypertension, hypothyroidism and depression. He is on Plavix. Patient denies shortness of breath and he denies chest pain. Timing/Duration: yesterday, worse (Symptoms worse today) Severity: moderate Modifying Factors: Improves With: movement (Worsens), rest (Improved with rest but pain is still present even at rest) Associated Symptoms: denies symptoms Allergies/Adverse Reactions: Iodinated Contrast Media Allergy (Verified 05/23/21 17:35) Home Medications: Famotidine 20 mg [Pepcid 20 MG] 20 mg PO BID 08/27/15 [History] Gabapentin [Neurontin] 800 mg PO BID 08/27/15 [History] Levothyroxine Sodium 25 Mcg [Synthroid 25 Mcg] 25 mcg PO DAILY 08/27/15 [History] Loratadine 10 mg [Claritin 10 mg] 10 mg PO DAILY 08/27/15 [History] Nitroglycerin 0.4 mg Tablet [Nitrostat 0.4 MG Tablet] 0.4 mg SL UD PRN 08/27/15 [History] [place]-3 Fatty Acids/Fish Oil [Fish Oil 1,000 mg Capsule] 1,000 mg PO BID 08/27/15 [History] Pyridoxine HCl 100 mg [Vitamin B-6 (Pyridoxine) 100 MG] 100 mg PO BID 08/27/15 [History] Ropinirole HCl 0.5 mg [Requip 0.5 MG] 0.5 mg PO HS 08/27/15 [History] Rosuvastatin Calcium [Crestor] 20 mg PO HS 08/27/15 [History] Sertraline HCl 50 mg [Zoloft 50 mg Tablet] 25 mg PO BID 08/27/15 [History] Clopidogrel Bisulfate [Clopidogrel] 75 mg PO DAILY 05/26/17 [History] Morphine Sulfate Ir 15 mg [Msir 15 mg] 15 mg PO Q4-6HPRN PRN 05/26/17 [History] Hx Tetanus, Diphtheria Vaccination/Date Given: Yes Hx Influenza Vaccination/Date Given: Yes Hx Pneumococcal Vaccination/Date Given: Yes Travel Risk - International Travel Have you traveled outside of the country in past 3 weeks: No - Emerging Infectious Disease Are you exhibiting symptoms associated with any current EIDs: No - Review of Systems Constitutional: No Symptoms Eyes: No Symptoms Ears, Nose, & Throat: No Symptoms Respiratory: No Symptoms Cardiac: No Symptoms Abdominal/Gastrointestinal: No Symptoms Genitourinary Symptoms: No Symptoms Musculoskeletal: Joint Pain (Right wrist) Skin: Other (Redness of skin overlying right wrist) Neurological: No Symptoms Psychological: No Symptoms Endocrine: No Symptoms Hematologic/Lymphatic: No Symptoms Immunological/Allergic: No Symptoms All Other Systems: Reviewed and Negative - Past Medical History Pertinent Past Medical History: Yes Neurological History: No Pertinent History ENT History: No Pertinent History Cardiac History: Angina, High Cholesterol, Hypertension, Myocardial Infarction ([place]) Respiratory History: No Pertinent History Endocrine Medical History: Hypothyroidism Musculoskeletal History: Arthritis, Fibromyalgia, Osteoarthritis GI Medical History: GERD History: No Pertinent History Psycho-Social History: Depression Male Reproductive Disorders: No Pertinent History Other Medical History: 6 MIS - Past Surgical History Past Surgical History: Yes Neuro Surgical History: No Pertinent History Cardiac: CABG, Pacemaker Respiratory: No Pertinent History Gastrointestinal: Cholecystectomy Genitourinary: No Pertinent History Musculoskeletal: No Pertinent History Male Surgical History: No Pertinent History - Social History Smoking Status: Never smoker Exposure to second hand smoke: No Drug Use: none Patient Lives Alone: No - Nursing Vital Signs Nursing Vital Signs: Initial Vital Signs Temperature 99.5 F 11/30/23 12:14 Pulse Rate 63 11/30/23 12:14 Respiratory Rate 18 11/30/23 12:14 Blood Pressure 142/84 11/30/23 12:14 O2 Sat by Pulse Oximetry 98 11/30/23 12:14 Pain Scale Pain Intensity [Right Wrist] 9 Pain Intensity 9 - Physical Exam General Appearance: no apparent distress, alert, anxiety, thin Eye Exam: PERRL/EOMI, eyes nml inspection Ears, Nose, Throat Exam: normal ENT inspection, moist mucous membranes Neck Exam: normal inspection, non-tender, supple, full range of motion Respiratory Exam: airway intact, No chest tenderness, No respiratory distress Rectal Exam: not done Back Exam: normal inspection, normal range of motion, No CVA tenderness, No vertebral tenderness Extremity Exam: normal range of motion, pelvis stable, joint swelling (Right wrist), swelling, tenderness (Right wrist), No deformities Neurologic Exam: alert, oriented x 3, cooperative, care coordination manager II-XII nml as tested, nml cerebellar function, nml station & gait, sensation nml Skin Exam: other (Colitis with skin) Lymphatic Exam: No adenopathy ( overlying right wrist) SpO2 Interpretation: normal O2 Delivery: Room Air - Course Nursing assessment & vital signs reviewed: Yes Ordered Tests: Active Orders 24 hr Category Date Time Status IV Insertion STAT Care 11/30/23 12:21 Active HAND (MINIMUM 3 VIEWS) Stat Exams 11/30/23 12:23 Completed WRIST (MIN 3 VIEWS) Stat Exams 11/30/23 12:23 Completed BLOOD CULTURE Stat Lab 11/30/23 13:02 Received CBC W DIFF Stat Lab 11/30/23 12:30 Completed CMP Stat Lab 11/30/23 12:30 Completed Lactic Acid Stat Lab 11/30/23 12:35 Completed Uric Acid Stat Lab 11/30/23 12:30 Completed Medication Summary Generic Name Dose Route Start Last Admin Trade Name Zev PRN Reason Stop Dose Admin Methylprednisolone Sodium 0 mg 11/30/23 13:29 Succinate 125 mg/ Sterile IV 11/30/23 13:30 Water 2 ml STAT ONE Ceftriaxone Sodium 1 gm in 100 mls @ 200 mls/hr 11/30/23 13:26 Rocephin 1 Gm / 100 Ml Nacl IV 11/30/23 13:55 STAT ONE Lab/Rad Data: Laboratory Result Diagrams 11/30/23 12:30 11/30/23 12:30 Laboratory Results 11/30/23 11/30/23 11/30/23 Range/Units 12:35 12:30 12:30 WBC 7.5 (4.23-9.07) x10^3/uL RBC 4.14 L (4.63-6.08) x10^6/uL Hgb 12.6 L (13.7-17.5) g/dL Hct 37.8 L (40.1-51.0) % MCV 91.3 (79.0-92.2) fL MCH 30.4 (25.7-32.2) pg MCHC 33.3 (32.3-36.5) g/dL RDW 13.1 (11.6-14.4) % Plt Count 94 L (163-337) x10^3/uL MPV 10.1 (9.4-12.4) fL Gran % 68.6 H (34.0-67.9) % Immature Gran % (Auto) 0.4 (0.001-0.429) % Nucleat RBC Rel Count 0.0 (0.00-0.2) % Eos # (Auto) 0.15 (0.04-0.54) x10^3/uL Immature Gran # (Auto) 0.03 (0.001-0.031) x10^3u/L Absolute Lymphs (auto) 1.19 L (1.32-3.57) x10^3/uL Absolute Monos (auto) 0.93 H (0.30-0.82) x10^3/uL Absolute Nucleated RBC 0.00 (0.00-0.012) x10^3u/L Lymphocytes % 16.0 L (21.8-53.1) % Monocytes % 12.5 H (5.3-12.2) % Eosinophils % 2.0 (0.8-7.0) % Basophils % 0.5 (0.2-1.2) % Absolute Granulocytes 5.12 (1.78-5.38) x10^3/uL Basophils # 0.04 (0.01-0.08) x10^3/uL Sodium 135 (135-145) mmol/L Potassium 3.9 (3.5-5.1) mmol/L Chloride 102 (98-107) mmol/L Carbon Dioxide 26 (22-30) mmol/L Anion Gap 10.8 (5-15) MEQ/L BUN 16 (9-20) mg/dL Creatinine 1.36 H (0.66-1.25) mg/dL Estimated GFR 53.9 ML/MIN Glucose 120 H (74-106) mg/dL Lactic Acid 0.5 (0.4-2.0) Uric Acid 3.8 (3.5-7.2) mg/dL Calcium 9.2 (8.4-10.2) mg/dL Total Bilirubin 1.10 (0.2-1.3) mg/dL AST 50 (17-59) U/L ALT 26 (0-50) U/L Alkaline Phosphatase 110 (38-126) U/L Serum Total Protein 7.6 (6.3-8.2) g/dL Albumin 4.1 (3.5-5.0) g/dL Slides for Path Review YES - Progress Progress: improved, pain not gone completely Progress Note: 11/30/23 13:07 My medical decision making and the assignment of moderate complexity to this patient's medical issue today is based on review of the patient's past medical history, review of the patient's medication list, review the patient drug al lergy list, history present illness and physical findings on examination. The workup in this patient includes placement of intravenous line, CBC, CMP, lactic acid level, uric acid level, x-ray of the patient's right hand and right wrist. Differential diagnosis includes but is not limited to cellulitis, acute gout, occult fracture 11/30/23 13:25 The following x-rays were interpreted by the radiologist and I reviewed the impression: Right hand x-ray shows no acute fracture or dislocation. There are chronic changes noted. Right wrist x-ray shows no acute fracture or dislocation. There are chronic changes noted. 11/30/23 13:30 I interpreted the patient's laboratory data results. Based on the patient's laboratory data results, the patient does not have an acute, emergent medical issue. We will treat him for cellulitis. Will provide him Rocephin 1 g intravenously here in the emergency department at this time. Will then remotely send a prescription for both Percocet and Keflex to his pharmacy. He will follow-up with his primary care provider today by phone to make arrangements to be seen in the next 3 to 5 days. Counseled pt/family regarding: lab results, diagnosis, need for follow-up, rad results Medical Desision Making - Independent Historian Additional History obtained from: Spouse - Diagnostic Testing Diagnostic test were ordered, analyzed, and reviewed by me: Yes Radiological Interpretation: Reviewed by me, Teleradiologist Report - Risk of complications The pt has a mod risk of morbidity or mortality based on: Need for prescription drug management - Departure Departure Disposition: Home Clinical Impression: Cellulitis of right wrist Condition: Stable Critical Care Time: No Referrals: GAUDENCIO SHORE MD [Primary Care Provider] - Follow up/PCP as directed Additional Instructions: Ice pack to tender area 3 times a day for the next 48 hours. Take your antibiotics, pain medication and other medication as prescribed. Call your primary care provider today, 11/30/2023, to make arrangements for follow-up appointment for further evaluation management. Prescriptions: Oxycodone HCl/Acetaminophen [Percocet 5-325 mg Tablet] 1 each PO Q8H PRN PRN #6 tablet MDD 3 PRN Reason: Moderate To Severe Pain Cephalexin Mh 500 mg [Keflex 500 mg] 500 mg PO TID #21 cap
[2023-11-30 12:16] VITALS: RESP 18; TEMP 99.5
[2023-11-30 12:55] LABS: Absolute Neutrophil Ct (ANC) 5.12 x10^3/uL (1.78-5.38); BASOPHIL % 0.5 % (0.2-1.2); Basophil (Absolute #) 0.04 x10^3/uL (0.01-0.08); Eosinophil (Absolute #) 0.15 x10^3/uL (0.04-0.54); Hematocrit 37.8 % (40.1-51.0); Hemoglobin 12.6 g/dL (13.7-17.5); IMMATURE GRAN # 0.03 x10^3u/L (0.001-0.031); IMMATURE GRAN % 0.4 % (0.001-0.429); Lymphocyte (Absolute #) 1.19 x10^3/uL (1.32-3.57); Mean Cell Volume 91.3 fL (79.0-92.2); Mean Corpuscular Hemoglobin 30.4 pg (25.7-32.2); Mean Corpuscular Hgb Concent. 33.3 g/dL (32.3-36.5); Mean Platelet Volume 10.1 fL (9.4-12.4); Monocyte (Absolute #) 0.93 x10^3/uL (0.30-0.82); Monocytes % 12.5 % (5.3-12.2); Neutrophil % 68.6 % (34.0-67.9); Platelet Count 94 x10^3/uL (163-337); Red Blood Count 4.14 x10^6/uL (4.63-6.08); Red Cell Distribution Width 13.1 % (11.6-14.4); White Blood Count 7.5 x10^3/uL (4.23-9.07)
[2023-11-30 13:00] LABS: ALBUMIN 4.1 g/dL (3.5-5.0); ANION GAP 10.8 MEQ/L (5-15); BILIRUBIN,TOTAL 1.1 mg/dL (0.2-1.3); Calcium 9.2 mg/dL (8.4-10.2); Creatinine 1 1.36 mg/dL (0.66-1.25); EST GLOMERULAR FILTRATION RATE 53.9 ML/MIN; Potassium 3.9 mmol/L (3.5-5.1); Total Protein 7.6 g/dL (6.3-8.2); Uric Acid 3.8 mg/dL (3.5-7.2)
--- NOTE | 2023-11-30 13:07 | XRAY ---
Indication: Pain. Frequent falls. Comparison: None 3 view right wrist demonstrates osteopenia, mild degenerative changes all IP joints, minimal radiocarpal joint space narrowing, faint ulnocarpal degenerative chondrocalcinosis, mild/moderate 1st metacarpal meticulously for degenerative changes, and 5 mm bone cyst base 1st metacarpal. No other bony, articular, or soft tissue abnormalities.
--- NOTE | 2023-11-30 13:07 | XRAY ---
Indication: Pain. Frequent falls. Comparison: None 3 view right wrist demonstrates osteopenia, minimal radiocarpal joint space narrowing, faint ulnocarpal degenerative chondrocalcinosis, mild/moderate 1st metacarpal meticulously for degenerative changes, and 5 mm bone cyst base 1st metacarpal. No other bony, articular, or soft tissue abnormalities.
[2023-11-30 13:27] LABS: Slide Review 1 YES
[2023-11-30] MEDS ORDERED: Sterile H2O 10 ml IJ ONE (13:35)
[2023-11-30] MEDS ORDERED: ROCEPHIN 1 GM / 100 ML NaCl 1 GM/100 ML IVPB IV ONE (13:35)
[2023-11-30] MEDS ORDERED: solu-MEDROL ONE (13:35)
[2023-11-30] MEDS: solu-MEDROL 125 MG, Sterile H2O 10 ml 2 ML IV ONE (13:38)
[2023-11-30] MEDS: ROCEPHIN 1 GM / 100 ML NaCl 1 GM/100 ML IVPB IV ONE (13:39)
[2023-11-30 13:45] VITALS: O2SAT 96
[2023-11-30 14:13] VITALS: BP 138/77; PULSE 60
== END 2023-11-30 14:25 | disposition home or self-care (01) ==
LOC: ED 12:02
DX: L03.113 Cellulitis of right upper limb (principal); M25.531 Pain in right wrist; M79.641 Pain in right hand
CPT/HCPCS: 36000; 36415; 73110; 73130; 80053; 83605; 84550; 85025; 87040; 96365; 96374; 99284; J0696; J2919

== ENCOUNTER 2024-01-12 17:16 | Emergency (ER) | payer MEDICARE ==
[2024-01-12 18:05] VITALS: TEMP 97
[2024-01-12 18:42] LABS: Absolute Neutrophil Ct (ANC) 3.33 x10^3/uL (1.78-5.38); BASOPHIL % 0.6 % (0.2-1.2); Basophil (Absolute #) 0.03 x10^3/uL (0.01-0.08); Eosinophil % 3.9 % (0.8-7.0); Hematocrit 37.3 % (40.1-51.0); Hemoglobin 12.2 g/dL (13.7-17.5); IMMATURE GRAN # 0.01 x10^3u/L (0.001-0.031); IMMATURE GRAN % 0.2 % (0.001-0.429); Lymphocytes % 23.4 % (21.8-53.1); Mean Cell Volume 92.6 fL (79.0-92.2); Mean Corpuscular Hemoglobin 30.3 pg (25.7-32.2); Mean Corpuscular Hgb Concent. 32.7 g/dL (32.3-36.5); Mean Platelet Volume 9.4 fL (9.4-12.4); Monocyte (Absolute #) 0.35 x10^3/uL (0.30-0.82); Monocytes % 6.8 % (5.3-12.2); Neutrophil % 65.1 % (34.0-67.9); Platelet Count 96 x10^3/uL (163-337); Red Blood Count 4.03 x10^6/uL (4.63-6.08); Red Cell Distribution Width 13.9 % (11.6-14.4); White Blood Count 5.1 x10^3/uL (4.23-9.07)
--- NOTE | 2024-01-12 18:42 | ERPHSYRPT ---
- History of Present Illness Time Seen by Provider: 01/12/24 18:20 Source: patient Exam Limitations: no limitations Patient Subjective Stated Complaint: C/O rectal bleeding when having bowel movements. Patient states he noticed intermittently 3 months ago but it increased in frequency about 3 weeks ago. Patient states it has been consistently happening with every BM for the past week. Bright red blood. Triage Nursing Assessment: Patient ambulated back to ER without difficulties. He is alert and oriented. No SOB noted but patient c/o SOB with exertion. He is pale. Denies any pain or N/V. Physician History: 78-year-old male presents to our ED for evaluation of bright red blood per rectum. Patient reports that symptoms for started approximately 3 weeks ago. Symptoms were intermittent. However over the past several days the bleeding has become regular with every bowel movement. Patient states he has been feeling weak. reports has been sleeping excessively. They contacted patient's primary care provider who advised him to come to our ED for an evaluation. No pain no fever. Patient's last colonoscopy was approximately 6 years ago. Patient's primary care doctor reports that he is due for another colonoscopy in light of the current symptoms. reports that patient appears pale. Patient states he feels fine otherwise. He voices no other complaints or concerns at this time. Portions of this note were created with voice recognition technology. There may be grammatical, spelling, punctuation or sound alike errors Timing/Duration: week(s) (3 weeks) Severity: moderate Modifying Factors: Improves With: nothing Associated Symptoms: denies symptoms Allergies/Adverse Reactions: Iodinated Contrast Media Allergy (Verified 01/12/24 17:47) Home Medications: Famotidine 20 mg [Pepcid 20 MG] 20 mg PO BID 08/27/15 [History] Levothyroxine Sodium 25 Mcg [Synthroid 25 Mcg] 25 mcg PO DAILY 08/27/15 [History] Loratadine 10 mg [Claritin 10 mg] 10 mg PO DAILY 08/27/15 [History] Nitroglycerin 0.4 mg Tablet [Nitrostat 0.4 MG Tablet] 0.4 mg SL UD PRN 08/27/15 [History] Art-3 Fatty Acids/Fish Oil [Fish Oil 1,000 mg Capsule] 1,000 mg PO BID 08/27/15 [History] Pyridoxine HCl 100 mg [Vitamin B-6 (Pyridoxine) 100 MG] 100 mg PO BID 08/27/15 [History] Ropinirole HCl 0.5 mg [Requip 0.5 MG] 1 mg PO HS 08/27/15 [History] Rosuvastatin Calcium [Crestor] 20 mg PO HS 08/27/15 [History] Sertraline HCl 50 mg [Zoloft 50 mg Tablet] 100 mg PO BID 08/27/15 [History] Clopidogrel Bisulfate [Clopidogrel] 75 mg PO DAILY 05/26/17 [History] Morphine Sulfate Ir 15 mg [Msir 15 mg] 15 mg PO Q4-6HPRN PRN 05/26/17 [History] Acetaminophen 325 mg [Tylenol 325 mg] 325 mg PO Q4-6HPRN PRN 01/12/24 [His tory] Aspirin EC 81 mg [Ecotrin 81 mg] 81 mg PO DAILY 01/12/24 [History] Cholecalciferol (Vitamin D3) [Vitamin D3] 50 mcg PO DAILY 01/12/24 [History] Folic Acid 400 mcg PO DAILY 01/12/24 [History] Gabapentin [Neurontin ] 800 mg PO BID 01/12/24 [History] Isosorbide Mononitrate 30 mg [Imdur 30 MG] 30 mg PO DAILY 01/12/24 [History] PANTOPRAZOLE 40 mg Tablet [Protonix 40MG Tablet] 40 mg PO DAILY 01/12/24 [History] Topiramate 50 mg PO BID 01/12/24 [History] Hx Tetanus, Diphtheria Vaccination/Date Given: Yes Hx Influenza Vaccination/Date Given: Yes Hx Pneumococcal Vaccination/Date Given: Yes Immunizations Up to Date: Yes Travel Risk - International Travel Have you traveled outside of the country in past 3 weeks: No - Emerging Infectious Disease Are you exhibiting symptoms associated with any current EIDs: No - Review of Systems Constitutional: No Symptoms, No Fever, No Chills Eyes: No Symptoms Ears, Nose, & Throat: No Symptoms Respiratory: No Symptoms, No Cough, No Dyspnea Cardiac: No Symptoms, No Chest Pain, No Edema, No Syncope Abdominal/Gastrointestinal: No Symptoms, No Abdominal Pain, No Nausea, No Vomiting, No Diarrhea Genitourinary Symptoms: No Symptoms, No Dysuria Musculoskeletal: No Symptoms, No Back Pain, No Neck Pain Skin: No Symptoms, No Rash Neurological: No Symptoms, No Dizziness, No Focal Weakness, No Sensory Changes Psychological: No Symptoms Endocrine: No Symptoms Hematologic/Lymphatic: No Symptoms Immunological/Allergic: No Symptoms All Other Systems: Reviewed and Negative - Past Medical History Pertinent Past Medical History: Yes Neurological History: No Pertinent History ENT History: Cataracts Cardiac History: Angina, High Cholesterol, Hypertension, Myocardial Infarction ([place]) Respiratory History: No Pertinent History Endocrine Medical History: Hypothyroidism Musculoskeletal History: Arthritis, Fibromyalgia, Osteoarthritis GI Medical History: GERD History: No Pertinent History Psycho-Social History: Depression Male Reproductive Disorders: No Pertinent History 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 - Past Surgical History Past Surgical History: Yes Neuro Surgical History: No Pertinent History Cardiac: CABG, Cardiac Catheterization, Cardiac Stent, Pacemaker Respiratory: No Pertinent History Gastrointestinal: Cholecystectomy Genitourinary: No Pertinent History Musculoskeletal: Other Male Surgical History: No Pertinent History Other Surgical History: 3 open heart surgeries, broken leg (som in right leg) - Social History Smoking Status: Never smoker Exposure to second hand smoke: No Drug Use: none Patient Lives Alone: No - Social Determinants of Health Will the patient participate in the screening: Yes Do you worry about a steady place to live?: No Do you have any problems with any of the following?: No known problems In the past 12 months,have you had to go without utilities?: No Transportation Issues: No Has anyone in your support network made you feel unsafe?: No Have you or anyone in your house had to go without enough: No - Nursing Vital Signs Nursing Vital Signs: Initial Vital Signs Pulse Rate 60 01/12/24 17:45 Respiratory Rate 17 01/12/24 17:45 Blood Pressure 142/96 01/12/24 17:45 O2 Sat by Pulse Oximetry 97 01/12/24 17:45 Pain Scale Pain Intensity 0 - Physical Exam General Appearance: no apparent distress, alert, other (Patient appears pale) Eye Exam: PERRL/EOMI, eyes nml inspection Ears, Nose, Throat Exam: normal ENT inspection, pharynx normal, moist mucous membranes Neck Exam: normal inspection, non-tender, supple, full range of motion Respiratory Exam: normal breath sounds, lungs clear, airway intact, No respiratory distress Cardiovascular Exam: regular rate/rhythm, normal heart sounds, normal peripheral pulses Gastrointestinal/Abdomen Exam: soft, normal bowel sounds, other (No hemorrhoids observed), No tenderness, No mass Back Exam: normal inspection, normal range of motion, No CVA tenderness, No vertebral tenderness Extremity Exam: normal inspection, normal range of motion, pelvis stable Neurologic Exam: alert, oriented x 3, cooperative, normal mood/affect, sensation nml, No motor deficits Skin Exam: normal color, warm, dry, No rash Lymphatic Exam: No adenopathy SpO2 Interpretation: normal SpO2: 98 O2 Delivery: Room Air - Course Nursing assessment & vital signs reviewed: Yes Ordered Tests: Active Orders 24 hr Category Date Time Status Peer Tutor STAT Care 01/12/24 18:37 Active IV Insertion STAT Care 01/12/24 18:37 Active Pulse Oximetry (ED) STAT Care 01/12/24 18:37 Active CBC W DIFF Stat Lab 01/12/24 17:53 Completed CMP Stat Lab 01/12/24 17:53 Completed PROTIME WITH INR Stat Lab 01/12/24 17:53 Completed PTT Stat Lab 01/12/24 17:53 Completed UA W/RFX UR CULTURE Stat Lab 01/12/24 19:59 Completed Medication Summary Generic Name Dose Route Start Last Admin Trade Name Freq PRN Reason Stop Dose Admin Sodium Chloride 1,000 mls @ 100 mls/hr 01/12/24 18:45 01/12/24 19:46 Sodium Chloride 0.9% 1000 Ml IV 02/11/24 18:44 100 mls/hr .Q10H CARLOS A Administration Pantoprazole Sodium 80 mg/ 500 mls @ 50 mls/hr 01/12/24 18:45 01/12/24 19:48 Sodium Chloride IV 02/11/24 18:44 50 mls/hr .Q10H CARLOS A 50 mls/hr Administration Discontinued Medications Generic Name Dose Route Start Last Admin Trade Name Freq PRN Reason Stop Dose Admin Sodium Chloride Confirm 01/12/24 19:18 Sodium Chloride 0.9% 500 Ml Administered 01/12/24 19:19 Dose 500 mls @ ud IV .STK-MED ONE Pantoprazole Sodium Confirm 01/12/24 19:18 Pantoprazole 40 Mg Vial Administered 01/12/24 19:19 Dose 80 mg IV .STK-MED ONE Lab/Rad Data: Laboratory Result Diagrams 01/12/24 17:53 01/12/24 17:53 Laboratory Results 01/12/24 01/12/24 01/12/24 Range/Units 19:59 17:53 17:53 WBC (4.23-9.07) x10^3/uL RBC (4.63-6.08) x10^6/uL Hgb (13.7-17.5) g/dL Hct (40.1-51.0) % MCV (79.0-92.2) fL MCH (25.7-32.2) pg MCHC (32.3-36.5) g/dL RDW (11.6-14.4) % Plt Count (163-337) x10^3/uL MPV (9.4-12.4) fL Gran % (34.0-67.9) % Immature Gran % (Auto) (0.001-0.429) % Nucleat RBC Rel Count (0.00-0.2) % Eos # (Auto) (0.04-0.54) x10^3/uL Immature Gran # (Auto) (0.001-0.031) x10^3u/L Absolute Lymphs (auto) (1.32-3.57) x10^3/uL Absolute Monos (auto) (0.30-0.82) x10^3/uL Absolute Nucleated RBC (0.00-0.012) x10^3u/L Lymphocytes % (21.8-53.1) % Monocytes % (5.3-12.2) % Eosinophils % (0.8-7.0) % Basophils % (0.2-1.2) % Absolute Granulocytes (1.78-5.38) x10^3/uL Basophils # (0.01-0.08) x10^3/uL PT 11.3 (9.4-12.5) SECONDS INR 1.04 (0.8-3.0) APTT 26.2 (25.1-36.5) SECONDS Sodium 142 (135-145) mmol/L Potassium 4.1 (3.5-5.1) mmol/L Chloride 108 H (98-107) mmol/L Carbon Dioxide 27 (22-30) mmol/L Anion Gap 11.7 (5-15) MEQ/L BUN 15 (9-20) mg/dL Creatinine 1.30 H (0.66-1.25) mg/dL Estimated GFR 56.9 ML/MIN Glucose 99 (74-106) mg/dL Calcium 9.3 (8.4-10.2) mg/dL Total Bilirubin 0.50 (0.2-1.3) mg/dL AST 47 (17-59) U/L ALT 21 (0-50) U/L Alkaline Phosphatase 86 (38-126) U/L Serum Total Protein 7.4 (6.3-8.2) g/dL Albumin 4.1 (3.5-5.0) g/dL Urine Color Yellow (Yellow) Urine Appearance Clear (Clear) Urine pH 6.0 (4.6-8.0) Ur Specific Gordon 1.010 (1.005-1.030) Urine Protein Negative (Negative) Urine Glucose (UA) Negative (Negative) mg/dL Urine Ketones Negative (Negative) Urine Blood Negative (Negative) Urine Nitrite Negative (Negative) Urine Bilirubin Negative (Negative) Urine Urobilinogen 1.0 A (0.2) mg/dL Ur Leukocyte Esterase Negative (Negative) U Hyaline Cast (Auto) NONE SEEN (0-2) /LPF Urine Microscopic RBC 0-2 (0-5) /HPF Urine Microscopic WBC 0-2 (0-5) /HPF Ur Epithelial Cells None Seen (None Seen) /HPF Urine Bacteria None Seen (None Seen) /HPF Urine Culture Reflexed NO (NO) Slides for Path Review ABO Group Rh Factor Antibody Screen (NEGATIVE) 01/12/24 01/12/24 Range/Units 17:53 17:53 WBC 5.1 (4.23-9.07) x10^3/uL RBC 4.03 L (4.63-6.08) x10^6/uL Hgb 12.2 L (13.7-17.5) g/dL Hct 37.3 L (40.1-51.0) % MCV 92.6 H (79.0-92.2) fL MCH 30.3 (25.7-32.2) pg MCHC 32.7 (32.3-36.5) g/dL RDW 13.9 (11.6-14.4) % Plt Count 96 L (163-337) x10^3/uL MPV 9.4 (9.4-12.4) fL Gran % 65.1 (34.0-67.9) % Immature Gran % (Auto) 0.2 (0.001-0.429) % Nucleat RBC Rel Count 0.0 (0.00-0.2) % Eos # (Auto) 0.20 (0.04-0.54) x10^3/uL Immature Gran # (Auto) 0.01 (0.001-0.031) x10^3u/L Absolute Lymphs (auto) 1.20 L (1.32-3.57) x10^3/uL Absolute Monos (auto) 0.35 (0.30-0.82) x10^3/uL Absolute Nucleated RBC 0.00 (0.00-0.012) x10^3u/L Lymphocytes % 23.4 (21.8-53.1) % Monocytes % 6.8 (5.3-12.2) % Eosinophils % 3.9 (0.8-7.0) % Basophils % 0.6 (0.2-1.2) % Absolute Granulocytes 3.33 (1.78-5.38) x10^3/uL Basophils # 0.03 (0.01-0.08) x10^3/uL PT (9.4-12.5) SECONDS INR (0.8-3.0) APTT (25.1-36.5) SECONDS Sodium (135-145) mmol/L Potassium (3.5-5.1) mmol/L Chloride (98-107) mmol/L Carbon Dioxide (22-30) mmol/L Anion Gap (5-15) MEQ/L BUN (9-20) mg/dL Creatinine (0.66-1.25) mg/dL Estimated GFR ML/MIN Glucose (74-106) mg/dL Calcium (8.4-10.2) mg/dL Total Bilirubin (0.2-1.3) mg/dL AST (17-59) U/L ALT (0-50) U/L Alkaline Phosphatase (38-126) U/L Serum Total Protein (6.3-8.2) g/dL Albumin (3.5-5.0) g/dL Urine Color (Yellow) Urine Appearance (Clear) Urine pH (4.6-8.0) Ur Specific Gordon (1.005-1.030) Urine Protein (Negative) Urine Glucose (UA) (Negative) mg/dL Urine Ketones (Negative) Urine Blood (Negative) Urine Nitrite (Negative) Urine Bilirubin (Negative) Urine Urobilinogen (0.2) mg/dL Ur Leukocyte Esterase (Negative) U Hyaline Cast (Auto) (0-2) /LPF Urine Microscopic RBC (0-5) /HPF Urine Microscopic WBC (0-5) /HPF Ur Epithelial Cells (None Seen) /HPF Urine Bacteria (None Seen) /HPF Urine Culture Reflexed (NO) Slides for Path Review YES ABO Group A Rh Factor POSITIVE Antibody Screen NEGATIVE (NEGATIVE) - Progress Progress: improved Progress Note: Case discussed with Dr. Alirio Baltazar. I spoke to Dr. Baltazar at approximately 8:42 PM. We discussed the case in detail and he felt it would be appropriate to discharge patient home and to follow-up with him to perform an outpatient scope EGD and colonoscopy. Plan discussed with patient. He agrees with plan. agrees as well. Patient is currently asymptomatic. 78-year-old male presents to emergency department for evaluation of bright red blood per rectum. Patient reports that the bright red blood per rectum has gotten progressively worse over the past several weeks. Patient's hemoglobin is 12. It appears to be stable as compared to previous. Vitals are stable. Patient currently asymptomatic. Imaging study not performed as patient has no abdominal pain. On exam no hemorrhoid observed. As patient thought that his symptoms are likely due to hemorrhoid. Patient agrees to follow-up with Dr. Alirio Baltazar tomorrow for reevaluation. He voices no other complaints or concerns at this time. Portions of this note were created with voice recognition technology. There may be grammatical, spelling, punctuation or sound alike errors Complexity problem addressed is moderate acute complicated. No critical care time. Complex of data reviewed and analyzed extensive test ordered test reviewed results analyzed and correlated clinically with history and physical exam. Management discussed with on-call general surgeon. Risk of complication and or risk of morbidity/mortality patient management is moderate. Vital stable. Time spent to discharge patient approximately 20 minutes. Plan of care established for shared decision making. No social determinants of health present to impede follow-up. Portions of this note were created with voice recognition technology. There may be grammatical, spelling, punctuation or sound alike errors 01/12/24 20:47 Counseled pt/family regarding: lab results, diagnosis, need for follow-up - Departure Departure Disposition: Home Clinical Impression: GI bleed Condition: Stable Critical Care Time: No Referrals: GAUDENCIO SHORE MD [Primary Care Provider] - Follow up/PCP as directed CRUZ BALTAZAR MD [ACTIVE STAFF] - Follow up/PCP as directed Additional Instructions: Discharge/Care Plan LIGHT JRYUNG DELACRUZ was seen on 01/12/24 in the Emergency Room. The patient was counseled regarding Diagnosis,Lab results, Imaging studies, need for follow up and when to return to the Emergency Room. Prescriptions given: Discharge Note I have spoken with the patient and/or caregivers. I have explained the patient's condition, diagnosis and treatment plan based on the information available to me at this time. I have answered the patient's and/or caregiver's questions and addressed any concerns. The patient and/or caregivers have as good understanding of the patient's diagnosis, condition and treatment plan as can be expected at this point. The vital signs have been stable. The patient's condition is stable and appropriate for discharge from the emergency department. The patient will pursue further outpatient evaluation with the primary care physician or other designated or consulting physician as outlined in the discharge instructions. The patient and/or caregivers are agreeable to this plan of care and follow-up instructions have been explained in detail. The patient and/or caregivers have received these instruction. The patient/and or caregivers are aware that any significant change in condition or worsening of symptoms should prompt an immediate return to this or the closest emergency department or call 911.
[2024-01-12 18:46] LABS: ALBUMIN 4.1 g/dL (3.5-5.0); ANION GAP 11.7 MEQ/L (5-15); BILIRUBIN,TOTAL 0.5 mg/dL (0.2-1.3); Calcium 9.3 mg/dL (8.4-10.2); Creatinine 1 1.3 mg/dL (0.66-1.25); EST GLOMERULAR FILTRATION RATE 56.9 ML/MIN; Potassium 4.1 mmol/L (3.5-5.1); Total Protein 7.4 g/dL (6.3-8.2)
[2024-01-12 19:00] LABS: INR 1.04 (0.8-3.0); PROTIME 11.3 SECONDS (9.4-12.5); PTT 26.2 SECONDS (25.1-36.5)
[2024-01-12 19:07] LABS: Slide Review 1 YES
[2024-01-12 19:17] VITALS: PULSE 60
[2024-01-12] MEDS ORDERED: PROTONIX 40 MG IV IV ONE (19:18)
[2024-01-12] MEDS ORDERED: Sodium Chloride 0.9% 500 ML 500 ML IV ONE (19:18)
[2024-01-12] MEDS ORDERED: Sodium Chloride 0.9% 1000 ML 1,000 ML ONE (19:18)
[2024-01-12 19:40] LABS: ABO TYPING A; Antibody Screen NEGATIVE (NEGATIVE); RH TYPING POSITIVE
[2024-01-12] MEDS: Sodium Chloride 0.9% 1000 ML 1,000 ML IV SCH (19:46)
[2024-01-12] MEDS: PROTONIX 40 MG IV*** 80 MG in Sodium Chloride 0.9% 500 ML 500 ML IV SCH (19:48)
[2024-01-12 20:22] VITALS: BP 134/81; RESP 16
[2024-01-12 20:31] VITALS: O2SAT 98
[2024-01-12 20:44] LABS: Appearance Clear (Clear); Bacteria None Seen /HPF (None Seen); Bilirubin Negative (Negative); Blood Negative (Negative); Epithelial Cells None Seen /HPF (None Seen); Glucose, Urine Negative (Negative); Hyaline Casts NONE SEEN /LPF (0-2); Ketones Negative (Negative); Leukocyte Esterase Negative (Negative); Nitrite Negative (Negative); Protein,Urine Dip Negative (Negative); RBC 0-2 /HPF (0-5); WBC 0-2 /HPF (0-5)
== END 2024-01-12 21:02 | disposition home or self-care (01) ==
LOC: ED 17:16
DX: K92.2 Gastrointestinal hemorrhage, unspecified (principal); R53.1 Weakness; E78.5 Hyperlipidemia, unspecified; I10 Essential (primary) hypertension; Z79.02 Long term (current) use of antithrombotics/antiplatelets; Z79.899 Other long term (current) drug therapy
CPT/HCPCS: 36000; 36415; 80053; 81001; 85025; 85610; 85730; 86850; 86900; 86901; 93041; 94760; 96365; 99284